=== PATIENT | male | born 1980 | race Hispanic/Latino ===

== ENCOUNTER 2016-08-01 13:19 | Emergency (ER) | payer OTHER ==
[~2016-08-01] VITALS: Ht 170.2 cm; Wt 131.5 kg
[~2016-08-01 13:19] MED LIST: ALPRAZOLAM1 M2 PO; ASPIRIN EC81 M1 PO; CYMBALTA 20 MG20 MG PO; CYMBALTA30 M1 PO; DEPAKOTE ER 25250 MG PO; DEPAKOTE ER500 M1 PO; DEPAKOTE250 MG PO; ENDOCET 325 MG-1 TAB PO; GLUCOPHAGE1000 M1 PO; IBUPROFEN600 M1 PO; IBUPROFEN800 M1 PO; LOMOTIL 0.025 M1 TAB PO; METFORMIN500 MG PO; MOTRIN 400MG (400 MG PO; OXYCODONE-ACETAMINOP PO; PREVACID30 M1 PO; PROTONIX40 M3 PO; RISPERDAL0.5 M1 PO; RISPERIDONE 1 MG1 MG PO; ROXICODONE15 M1 PO; ZOFRAN4 M2 PO
[2016-08-01 13:29] VITALS: BP 119/80
--- NOTE | 2016-08-01 13:55 | ED PSYCHIATRIC COMPLAINT ---
History of Present Illness General Chief Complaint: Psychiatric Related Complaint Stated Complaint: REQ TO SPEAK W/ CRISIS REGARDING PSY WORK CLEARANC Source: patient Exam Limitations: no limitations Vital Signs & Intake/Output Vital Signs & Intake/Output Vital Signs Date Time Temp Pulse Resp B/P Pulse O2 O2 Flow FiO2 Ox Delivery Rate 08/01 1418 Room Air 08/01 1329 98.2 96 16 119/80 98 Room Air Allergies Coded Allergies: haloperidol (From Haldol) (Severe, MOUTH STIFFNESS 06/25/16) tramadol (Intermediate, GI UPSET 06/25/16) Reconcile Medications Alprazolam 1 MG TABLET 1 TAB PO TIDPRN ANXIETY (Reported) Aspirin (Ecotrin*) 81 MG TABLET.DR 1 TAB PO DAILY . (Reported) Divalproex Sodium (Depakote ER) 500 MG TAB.ER.24H 1 TAB PO BID MENTAL HEALTH (Reported) Duloxetine Hydrochloride (Cymbalta) 30 MG CAP 1 CAP PO DAILY depression ( Reported) Ibuprofen 800 MG TABLET 1 TAB PO TID PRN pain Lansoprazole (Prevacid) 30 MG CAPSULE.DR 1 CAP PO DAILY GI (Reported) Metformin HCl (Glucophage) 1,000 MG TABLET 1 TAB PO BID DIABETES (Reported) Ondansetron HCl (Zofran) 4 MG TABLET 1 TAB PO TID NAUSEA (Reported) Oxycodone HCl (Roxicodone) 15 MG TABLET 1 TAB PO 4XDP PAIN (Reported) Pantoprazole Sodium (Protonix) 40 MG TAB 40 MG PO DAILY GERD (Reported) Risperidone (Risperdal) 0.5 MG TABLET 1 TAB PO BID . (Reported) Triage Note: PT STATES HE WAS SENT BY HIS PCP FOR A PSYCH EVAL. TO GET CLEARED STATING THAT HE HAS BEEN EVALUATED AND THAT HE IS NOT SUICIDAL. PT DENIES FEELING SUICIDAL OR HOMICIDAL. Triage Nurses Notes Reviewed? yes Duration: unknown duration Severity: mild Associated Symptoms: ANXIETY, DRINKS A LOT OF COFFEE HPI: This is a 35-year-old male who presents to the ER for chief complaint of requesting a her stating that he is not suicidal so that he can follow up with his pain care Center. He denies any SI or HI. He denies hearing any voices. He is well maintained on his bipolar medications. He states that he is following with But is waiting for an official appointment with a psychiatrist in the interim his primary care doctor is refilling his medications. Past History Travel History Traveled to [place] past 21 day No Medical History Any Pertinent Medical History? 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 No Review of Systems Review of Systems Constitutional: Denies: chills, fever. EENTM: Reports: no symptoms. Respiratory: Denies: cough, short of breath. Cardiovascular: Denies: chest pain. GI: Reports: no symptoms. Genitourinary: Reports: no symptoms. Musculoskeletal: Reports: no symptoms. Skin: Reports: no symptoms. Neurological/Psychological: Reports: anxiety. Denies: confusion, depressed. Hematologic/Endocrine: Denies: bruising, bleeding, polyuria, polydipsia. Immunologic/Allergic: Denies: splenectomy. All Other Systems: Reviewed and Negative Physical Exam Physical Exam General Appearance: well developed/nourished, mild distress Head: atraumatic Eyes: Bilateral: PERRL, EOMI. Ears, Nose, Throat: normal pharynx, normal ENT inspection, hearing grossly normal Neck: normal inspection, supple Respiratory: normal breath sounds Cardiovascular: regular rate/rhythm Gastrointestinal: soft, non-tender Extremities: normal range of motion Neurological/Psychiatric: awake, alert, anxious Appearance/Memory/Insight: neat Behavoir/Eye Contact/Speech: cooperative, increased rate of speech, good eye contact Thoughts/Hallucinations: no apparent hallucination Skin: intact, normal color, warm/dry SAD PERSONS Done? patient not suicidal Progress Differential Diagnosis: BIPOLAR DISORDER, ANXIETY Plan of Care: Patient given a letter of clearance to return back to work. Departure Departure Time of Disposition: 1418 Disposition: HOME OR SELF CARE Condition: Stable Clinical Impression Primary Impression: Bipolar disorder Referrals: EDUARDO RAJAN MD (PCP/Family) Additional Instructions: Take your regular medications as prescribed. Follow up with your care appointments. Return as needed. Departure Forms: Customer Survey General Discharge Information
[2016-08-02] MEDS ORDERED: ROXICODONE15 M1 PO (23:27)
== END 2016-08-01 14:20 ==
LOC: ERH 13:19
DX: F31.9 Bipolar disorder, unspecified (principal)

== ENCOUNTER 2016-08-02 20:43 | Emergency (ER) | payer OTHER ==
[2016-08-02 20:55] VITALS: BP 122/77
--- NOTE | 2016-08-02 22:41 | CT SCAN REPORT ---
EXAMINATION: CT HEAD WITHOUT CONTRAST CLINICAL INFORMATION: Fall. Left head strike. COMPARISON: None. TECHNIQUE: Contiguous axial imaging was performed from the skull base to vertex without intravenous administration of contrast. Coronal reformatted images performed at CT scanner DLP: 600.71 mGy-cm. FINDINGS: There is no evidence of acute intracranial hemorrhage or territorial infarction. No abnormal mass effect or midline shift is seen. Marcelo to white matter differentiation is well preserved. No extra-axial fluid collections are identified. The ventricles are normal in size. There is no abnormal attenuation within the brain parenchyma. The osseous structures and soft tissues are normal. Sinus mucosal thickening in the ethmoid sinuses. Small amount mucosal thickening in the frontal sinuses bilateral inferiorly. The mastoid air cells and the middle ear cavities are normally aerated. IMPRESSION: No acute intracranial pathology. Sinus disease.
--- NOTE | 2016-08-02 22:57 | RADIOLOGY REPORT ---
EXAMINATION: XR KNEE, LEFT CLINICAL INFORMATION: Fall. Continuing pain. COMPARISON: None. TECHNIQUE: 4 views. FINDINGS: No fracture. No dislocation. No joint effusion. There is mild joint narrowing of the medial femoral tibial joint. No spur or erosion. No soft tissue calcification. IMPRESSION: No acute abnormality.
--- NOTE | 2016-08-02 22:58 | RADIOLOGY REPORT ---
EXAMINATION: XR WRIST, LEFT CLINICAL INFORMATION: Fall. Wrist pain. COMPARISON: None. TECHNIQUE: 3 views. FINDINGS: There are no fractures or dislocations. No bone, joint or soft tissue abnormality is demonstrated. IMPRESSION: Normal left wrist.
--- NOTE | 2016-08-02 23:00 | RADIOLOGY REPORT ---
EXAMINATION: XR ELBOW, RIGHT CLINICAL INFORMATION: Fall. Right elbow pain. COMPARISON: None TECHNIQUE: Two views of the right elbow. FINDINGS: The bones and soft tissues are normal. No fracture or joint effusion. Alignment is anatomic. Joint spaces are maintained. IMPRESSION: Normal right elbow.
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
[2016-08-02] MEDS ORDERED: ROXICODONE15 M1 PO (23:27)
== END 2016-08-02 23:30 ==
LOC: ERH 20:43
DX: S50.01XA Contusion of right elbow, initial encounter (principal); S63.502A Unspecified sprain of left wrist, initial encounter; S09.90XA Unspecified injury of head, initial encounter; G89.29 Other chronic pain; N34.2 Other urethritis; W01.0XXA Fall on same level from slipping, tripping and stumbling without subsequent striking against object, initial encounter
CPT/HCPCS: 73070-RT; 73110-LT; 73562-LT; 96372; J0696

== ENCOUNTER 2016-08-09 20:56 | Emergency (ER) | payer OTHER ==
[2016-08-09 21:08] VITALS: BP 131/88
[2016-08-09] MEDS ORDERED: GABAPENTIN600 M1 PO ×2 (21:34→21:48)
[2016-08-09] MEDS ORDERED: ROXICODONE15 M1 PO (21:34)
--- NOTE | 2016-08-09 21:35 | ED GENERAL ADULT ---
History of Present Illness General Chief Complaint: General Adult Stated Complaint: PT IS HERE FOR A FOLLOW ON RG KNEE AND WRIST Source: patient Exam Limitations: no limitations Vital Signs & Intake/Output Vital Signs & Intake/Output Vital Signs Date Time Temp Pulse Resp B/P Pulse O2 O2 Flow FiO2 Ox Delivery Rate 08/09 2108 98.6 110 131/88 97 Room Air Allergies Coded Allergies: haloperidol (From Haldol) (Severe, MOUTH STIFFNESS 06/25/16) tramadol (Intermediate, GI UPSET 06/25/16) Reconcile Medications Alprazolam 1 MG TABLET 1 TAB PO TIDPRN ANXIETY (Reported) Aspirin (Ecotrin*) 81 MG TABLET.DR 1 TAB PO DAILY . (Reported) Divalproex Sodium (Depakote ER) 500 MG TAB.ER.24H 1 TAB PO BID MENTAL HEALTH (Reported) Duloxetine Hydrochloride (Cymbalta) 30 MG CAP 1 CAP PO DAILY depression ( Reported) Gabapentin 600 MG TABLET 1 TAB PO TID PAIN Gabapentin 600 MG TABLET 1 TAB PO TID PAIN Ibuprofen 800 MG TABLET 1 TAB PO TID PRN pain Lansoprazole (Prevacid) 30 MG CAPSULE.DR 1 CAP PO DAILY GI (Reported) Metformin HCl (Glucophage) 1,000 MG TABLET 1 TAB PO BID DIABETES (Reported) Ondansetron HCl (Zofran) 4 MG TABLET 1 TAB PO TID NAUSEA (Reported) Oxycodone HCl (Roxicodone) 15 MG TABLET 1 TAB PO 4XDP PAIN (Reported) Oxycodone HCl (Roxicodone) 15 MG TABLET 1 TAB PO BID pain Oxycodone HCl 15 MG TABLET 1 TAB PO BID PAIN Oxycodone HCl (Roxicodone) 15 MG TABLET 1 TAB PO 4XDP chronic pain Pantoprazole Sodium (Protonix) 40 MG TAB 40 MG PO DAILY GERD (Reported) Risperidone (Risperdal) 0.5 MG TABLET 1 TAB PO BID . (Reported) Triage Note: PER PT HERE FOR PAIN MED REFILL AND RT WRIST AND KNEE PAIN HERE TO SEE DR. BOSWELL ALSO NEED GABAPENTIN. Triage Nurses Notes Reviewed? yes Onset: Abrupt Duration: day(s):, constant Timing: recent history No Modifying Factors: none HPI: 35-year-old male comes into emergency room requesting a refill on his oxycodone and gabapentin. Patient was seen here recently and had the medication prescribed. Patient is currently trying to get in with new pain management. Patient reports that he has back issues and knee issues. Patient is just here for refill on medication. Denies any other associated symptoms. (GALE EMERSON) Past History Travel History Traveled to [place] past 21 day No Medical History Any Pertinent Medical History? 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 No (GALE EMERSON) Review of Systems Review of Systems Constitutional: Reports: no symptoms. EENTM: Reports: no symptoms. Respiratory: Reports: no symptoms. Cardiovascular: Reports: no symptoms. GI: Reports: no symptoms. Genitourinary: Reports: no symptoms. Musculoskeletal: Reports: no symptoms. Skin: Reports: no symptoms. Neurological/Psychological: Reports: no symptoms. Hematologic/Endocrine: Reports: no symptoms. Immunologic/Allergic: Reports: no symptoms. All Other Systems: Reviewed and Negative (GALE EMERSON) Physical Exam Physical Exam General Appearance: well developed/nourished, alert, awake Head: atraumatic Eyes: Bilateral: normal appearance. Ears, Nose, Throat: normal ENT inspection, hearing grossly normal Neck: normal inspection Respiratory: no respiratory distress Back: normal range of motion Extremities: normal range of motion Neurologic/Psych: awake, alert, oriented x 3 Skin: intact, normal color Core Measures ACS in differential dx? No CVA/TIA Diagnosis: No Severe Sepsis Present: No Septic Shock Present: No (GALE EMERSON) Progress Differential Diagnoses I considered the following diagnoses in my evaluation of the patient: Chronic pain, anxiety, depression, bursitis, arthritis, muscle strains, herniated disc, degenerative disease, Plan of Care: see below Initial ED EKG: none (GALE EMERSON) Departure Departure Disposition: HOME OR SELF CARE Condition: Stable Clinical Impression Primary Impression: Medication refill Referrals: EDUARDO RAJAN MD (PCP/Family) Additional Instructions: Take gabapentin and oxycodone as prescribed. Follow-up with new pain management doctor as already scheduled. Return if any concerns worsening symptoms. Please go over all results of today's visit with your primary care doctor. Contact your primary care doctor to let them know you were here in the emergency room. There may be nonspecific findings which may not be related to your visit today here in the emergency room but may require further evaluation and chronic monitoring by your primary care doctor. If you had a laceration today the chance of foreign body always remains. You should follow-up with your primary care doctor for recheck in 3-5 days for a wound check. If you had an x-ray done there is a chance that a fracture could have been missed on initial read and you should follow-up with your primary care doctor for repeat x-rays if symptoms persist. If your blood pressure was elevated here in the emergency room please have rechecked by her primary care doctor within the next 48 hours by your primary care doctor. If you were prescribed a narcotic here in the emergency room or any type of controlled substances you're not allowed to drive while taking this medication or operate any type of heavy machinery. Narcotics can make you feel lightheaded dizziness nausea and can cause constipation. You may need to cigar packer and picker a stool softener. Thank you for choosing [facility] emergency room. Please return to the emergency room immediately if you have any other concerns worsening of symptoms. Departure Forms: Customer Survey General Discharge Information Prescriptions: Current Visit Scripts Oxycodone HCl (Roxicodone) 1 TAB PO BID #20 TAB Gabapentin 1 TAB PO TID #40 TAB Oxycodone HCl 1 TAB PO BID #20 TAB Gabapentin 1 TAB PO TID #40 TAB (GALE EMERSON) PA/LAWYER Co-Sign Statement Statement: ED Attending supervision documentation- [] I saw and evaluated the patient. I have also reviewed all the pertinent lab results and diagnostic results. I agree with the findings and the plan of care as documented in the PA's/LAWYER's documentation. x I have reviewed the ED Record and agree with the PA's/LAWYER's documentation. [] Additions or exceptions (if any) to the PAs/LAWYER's note and plan are summarized below: [] (ANDREIA MONTOYA,VAN) Critical Care Note Critical Care Note Critical Care Time: non-applicable (GALE EMERSON)
[2016-08-09] MEDS ORDERED: OXYCODONE HCL15 M1 PO (21:48)
== END 2016-08-09 21:53 ==
LOC: ERH 20:56
DX: Z76.0 Encounter for issue of repeat prescription (principal)
CPT/HCPCS: 99281

== ENCOUNTER 2016-08-15 01:29 | Emergency (ER) | payer OTHER ==
[~2016-08-15] VITALS: Ht 167.6 cm; Wt 113.4 kg
[~2016-08-15 01:29] MED LIST changes: +GABAPENTIN600 M1 PO; +OXYCODONE HCL15 M1 PO
[2016-08-15 01:42] VITALS: BP 135/76
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
[2016-08-15] MEDS ORDERED: PERCOCET 5-3251 EACH PO (02:23)
[2016-08-15] MEDS ORDERED: OXYCODONE HCL5 M2 PO ×2 (02:32→02:46)
== END 2016-08-15 02:52 ==
LOC: ERH 01:29
DX: M25.462 Effusion, left knee (principal)

== ENCOUNTER 2016-08-17 23:34 | Emergency (ER) | payer OTHER ==
[~2016-08-17] VITALS: Ht 170.2 cm; Wt 122.5 kg
[~2016-08-17 23:34] MED LIST changes: +OXYCODONE HCL5 M2 PO; +PERCOCET 5-3251 EACH PO
--- NOTE | 2016-08-18 00:21 | ED GENERAL ADULT ---
History of Present Illness General Chief Complaint: General Adult Stated Complaint: WANT MED REFILL Vital Signs & Intake/Output Vital Signs & Intake/Output Vital Signs Date Time Temp Pulse Resp B/P Pulse O2 O2 Flow FiO2 Ox Delivery Rate 08/18 0109 98.6 100 20 150/90 97 Room Air Room Air Allergies Coded Allergies: haloperidol (From Haldol) (Severe, MOUTH STIFFNESS 06/25/16) tramadol (Intermediate, GI UPSET 06/25/16) Reconcile Medications Alprazolam 1 MG TABLET 1 TAB PO TIDPRN ANXIETY (Reported) Aspirin (Ecotrin*) 81 MG TABLET.DR 1 TAB PO DAILY . (Reported) Divalproex Sodium (Depakote ER) 500 MG TAB.ER.24H 1 TAB PO BID MENTAL HEALTH (Reported) Duloxetine Hydrochloride (Cymbalta) 30 MG CAP 1 CAP PO DAILY depression ( Reported) Gabapentin 600 MG TABLET 1 TAB PO TID PAIN Gabapentin 600 MG TABLET 1 TAB PO TID PAIN Ibuprofen 800 MG TABLET 1 TAB PO TID PRN pain Lansoprazole (Prevacid) 30 MG CAPSULE.DR 1 CAP PO DAILY GI (Reported) Metformin HCl (Glucophage) 1,000 MG TABLET 1 TAB PO BID DIABETES (Reported) Ondansetron HCl (Zofran) 4 MG TABLET 1 TAB PO TID NAUSEA (Reported) Oxycodone HCl (Roxicodone) 15 MG TABLET 1 TAB PO 4XDP PAIN (Reported) Oxycodone HCl 5 MG CAPSULE 1 CAP PO Q8 PRN pain Oxycodone HCl (Roxicodone) 15 MG TABLET 1 TAB PO BID pain Oxycodone HCl 15 MG TABLET 1 TAB PO BID PAIN Oxycodone HCl (Roxicodone) 15 MG TABLET 1 TAB PO 4XDP chronic pain Pantoprazole Sodium (Protonix) 40 MG TAB 40 MG PO DAILY GERD (Reported) Risperidone (Risperdal) 0.5 MG TABLET 1 TAB PO BID . 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
[2016-08-18 01:09] VITALS: BP 150/90
--- NOTE | 2016-08-18 01:39 | ED GENERAL ADULT ---
History of Present Illness General Chief Complaint: General Adult Stated Complaint: WANT MED REFILL Source: patient Exam Limitations: no limitations Vital Signs & Intake/Output Vital Signs & Intake/Output Vital Signs Date Time Temp Pulse Resp B/P Pulse O2 O2 Flow FiO2 Ox Delivery Rate 08/18 0109 98.6 100 20 150/90 97 Room Air Room Air Allergies Coded Allergies: haloperidol (From Haldol) (Severe, MOUTH STIFFNESS 06/25/16) tramadol (Intermediate, GI UPSET 06/25/16) Triage Note: 35YO MALE TO TRIAGE REQUESTING REFILLS OF HIS OXY'S. STATES HE "WAS RELEASED FROM PAIN CLINIC IN [place] AND STATES HE VEGA NOT HAD ANY X 3 D." ALSO REQUESTING TO BE GIVEN SUBOXONE Triage Nurses Notes Reviewed? yes HPI: Patient is a 35 year old male who came to the ED stating that stating that it has been 36 hours that she has not had any pain medication he's with spelling. Patient was supposed to follow up with pain clinic but they refused to take the patient as they said he needs to be cleared by psychiatric due to his previous history of bipolar disorder and schizophrenia. Currently reports pain in the left lower back radiating to the leg and feels anxious. Also reports headache, he has not been able to sleep due to pain. (TJ MONTOYA,[facility]) Reconcile Medications Alprazolam 1 MG TABLET 1 TAB PO TIDPRN ANXIETY (Reported) Aspirin (Ecotrin*) 81 MG TABLET.DR 1 TAB PO DAILY . (Reported) Buprenorphine HCl/Naloxone HCl (Suboxone 8 MG-2 MG Sl Film) 8 MG-2 MG FILM 2 STR SL DAILY withdrawal sixteen...[id number] Divalproex Sodium (Depakote ER) 500 MG TAB.ER.24H 1 TAB PO BID MENTAL HEALTH (Reported) Duloxetine Hydrochloride (Cymbalta) 30 MG CAP 1 CAP PO DAILY depression ( Reported) Gabapentin 600 MG TABLET 1 TAB PO TID PAIN Gabapentin 600 MG TABLET 1 TAB PO TID PAIN Ibuprofen 800 MG TABLET 1 TAB PO TID PRN pain Lansoprazole (Prevacid) 30 MG CAPSULE.DR 1 CAP PO DAILY GI (Reported) Metformin HCl (Glucophage) 1,000 MG TABLET 1 TAB PO BID DIABETES (Reported) Ondansetron HCl (Zofran) 4 MG TABLET 1 TAB PO TID NAUSEA (Reported) Oxycodone HCl (Roxicodone) 15 MG TABLET 1 TAB PO 4XDP PAIN (Reported) Oxycodone HCl 5 MG CAPSULE 1 CAP PO Q8 PRN pain Oxycodone HCl (Roxicodone) 15 MG TABLET 1 TAB PO BID pain Oxycodone HCl 15 MG TABLET 1 TAB PO BID PAIN Oxycodone HCl (Roxicodone) 15 MG TABLET 1 TAB PO 4XDP chronic pain Pantoprazole Sodium (Protonix) 40 MG TAB 40 MG PO DAILY GERD (Reported) Risperidone (Risperdal) 0.5 MG TABLET 1 TAB PO BID . (Reported) (JOSE DAVID MONTOYA,RADHA Ellis) Past History Travel History Traveled to [place] past 21 day No Medical History Any Pertinent Medical History? 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 Yes (NOLVIA SPENCER MD) Review of Systems Review of Systems Constitutional: Denies: chills, fever, weakness. EENTM: Reports: no symptoms. Respiratory: Denies: cough, short of breath, sputum production. Cardiovascular: Denies: chest pain, palpitations. GI: Reports: no symptoms. Genitourinary: Reports: no symptoms. Musculoskeletal: Reports: back pain. Denies: joint pain, joint swelling. Skin: Reports: no symptoms. Neurological/Psychological: Reports: headache. Denies: weakness. Hematologic/Endocrine: Denies: bruising, bleeding. (NOLVIA SPENCER MD) Physical Exam Physical Exam General Appearance: well developed/nourished, no apparent distress, alert, awake , anxious Head: atraumatic, normal appearance Eyes: Bilateral: PERRL, EOMI. Ears, Nose, Throat: normal pharynx, normal ENT inspection Neck: normal inspection, supple, full range of motion Respiratory: normal breath sounds, chest non-tender, no respiratory distress, quiet respiration Cardiovascular: regular rate/rhythm Peripheral Pulses: 2+ radial (R), 2+ radial (L) Gastrointestinal: normal bowel sounds, soft, non-tender Back: normal inspection, normal range of motion, vertebral tenderness, tenderness on the palpation of the lower lumbar spine and left pelvis Extremities: normal inspection, normal capillary refill, normal range of motion, no edema Neurologic/Psych: no motor/sensory deficits, awake, alert, oriented x 3, normal gait Skin: intact, normal color, warm/dry Core Measures ACS in differential dx? No CVA/TIA Diagnosis: No Severe Sepsis Present: No Septic Shock Present: No (NOLVIA SPENCER MD) Progress Differential Diagnoses I considered the following diagnoses in my evaluation of the patient: [opioid ependence, opiate withdrawal, disc herniation, chronic low back pain] Plan of Care: We prescribed Suboxone for the patient until his appointment on August 23, 2016 with the outpatient rehab in [place] for Suboxone tx. Initial ED EKG: none (NOLVIA SPENCER MD) Departure Departure Disposition: HOME OR SELF CARE Condition: Stable Clinical Impression Primary Impression: Opioid dependence Secondary Impressions: Opioid withdrawal Referrals: EDUARDO RAJAN MD (PCP/Family) Departure Forms: Customer Survey General Discharge Information (NOLVIA SPENCER MD) Departure Prescriptions: Current Visit Scripts Buprenorphine HCl/Naloxone HCl (Suboxone 8 MG-2 MG Sl Film) 2 STR SL DAILY #16 STR sixteen...[id number] Resident Co-Sign Statement Statement: ED Attending supervision documentation- [X] I saw and evaluated the patient. I have also reviewed all the pertinent lab results and diagnostic results. I agree with the findings and the plan of care as documented in the Resident's documentation. discussed at great length. he would like to give trial of suboxone. discussed induction and advocated close follow up. he has appt with suboxone provider next week. he understood induction protocol. [] I have reviewed the ED Record and agree with the Resident's documentation. [] Additions or exceptions (if any) to the Resident's note and plan are summarized below: [] (JOSE DAVID MONTOYA,RADHA Ellis) Critical Care Note Critical Care Note Critical Care Time: non-applicable (NOLVIA SPENCER MD) ED Attending Observation Initial Observation Note: I have seen and personally examined GREG FRIEDMAN on 08/18/16 at 0534. I agree with the current emergency department documentation. The disposition (admission or discharge) is uncertain at this time, he needs a period of observation for the following reason(s): The ED Nurse caring for this patient has been personally informed as to what the patient is being observed for. (TJ MONTOYA,NOLVIA)
[2016-08-18] MEDS ORDERED: SUBOXONE 8 MG-1 EACH SL (02:09)
== END 2016-08-18 02:16 ==
LOC: ERH 23:34
DX: F11.23 Opioid dependence with withdrawal (principal)
CPT/HCPCS: 99281

== ENCOUNTER 2016-10-12 07:40 | Inpatient (IN) | payer OTHER ==
[~2016-10-12] VITALS: Ht 170.2 cm; Wt 127.9 kg
[~2016-10-12 07:40] MED LIST changes: +SUBOXONE 8 MG-1 EACH SL
--- NOTE | 2016-10-12 07:52 | NUR ---
PT LEFT AMA FROM [facility] THIS MORNING BECAUSE HIS ROOMMATE WAS TOLD SHE HAD TO LEAVE AT 0400 THIS MORNING D/T VISITING HOURS OVER. PT STATES HE WENT TO [place] FOR CP/SOB AND DIZZINESS AND WAS TOLD HE HAS A PE.
--- NOTE | 2016-10-12 08:12 | NUR ---
PT CHANGED INTO GOWN AND NOTED AMBULATING ON PHONE AND ADVISED TO GO BACK TO ROOM AND STAY ON STRETCHER BECAUSE OF STATED CONDITION. PT HAS PREVIOUS PCP CARING FOR HIM ON PHONE AND LINETTE ANDUJAR AT BEDSIDE TO EVAL PT AND SPEAK WITH PROVIDER.
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
--- NOTE | 2016-10-12 08:30 | ED CARDIAC/CP/PALPITATIONS ---
History of Present Illness General Chief Complaint: General Adult Stated Complaint: LEFT AMA FROM [facility]; BLD CLOTS IN LEGS AND LUNGS Allergies Coded Allergies: haloperidol (From Haldol) (Severe, MOUTH STIFFNESS 06/25/16) tramadol (Intermediate, GI UPSET 06/25/16) Triage Note: PT LEFT AMA FROM [facility] THIS MORNING BECAUSE HIS ROOMMATE WAS TOLD SHE HAD TO LEAVE AT 0400 THIS MORNING D/T VISITING HOURS OVER. PT STATES HE WENT TO [facility] FOR CP/SOB AND DIZZINESS AND WAS TOLD HE HAS A PE. HPI: I was called by the hospitalist Dr. Baez from [facility] regarding this patient who provided much of the history. He also faxed over records which I have reviewed. In summary this is a 36-year-old male who was having chest pain and shortness of breath who was originally seen at [facility] 2 days ago, had a CTA however per the report, the bolus was somewhat inadequate however he was diagnosed with high probability of having a pulmonary embolism. Patient left [facility] AGAINST MEDICAL ADVICE because "the hospitalist spooky, there was no patient's there, it didn't seem like a good hospital . And they don't allow visitors overnight ". Patient then went to [facility]. He spent the evening there yesterday, on intravenous heparin however, did not want to continue getting blood draws for his PTT and he was going to be switched to Lovenox this morning , last dose of heparin was around 2 AM and the plan was to repeat the CTA today to confirm the diagnosis. Patient, according to the records that were faxed over, had a negative troponin and negative d-dimer. Patient states that his roommate was told to leave at 4:00 this morning which angered him so he signed out AGAINST MEDICAL ADVICE and came to our hospital this morning. I was able to speak with the hospitalist at [facility] because he called the patient's cell phone while I was in the room with the patient. Currently patient has no complaints, in fact he fell asleep on the stretcher twice while I was interviewing him. He has a known psychiatric history and is on risperidone as well as a substance abuse history and is on Suboxone 8 mg, 18 tablets per week. He denies any history of drug or alcohol abuse. I discussed with patient the plan that we are going to repeat his CTA and his lab testing. He is comfortable at this time without complaints. He denies any cough or hemoptysis. According to the hospitalist, the original CT angiogram was read as "suspicious filling defects of the pulmonary arteries in the bilateral upper lobes" Patient had bilateral lower extremity ultrasounds which were negative for DVT as well (JAN BARRERA) General Source: patient Exam Limitations: poor historian Vital Signs & Intake/Output Vital Signs & Intake/Output Vital Signs Date Time Temp Pulse Resp B/P Pulse O2 O2 Flow FiO2 Ox Delivery Rate 10/12 1829 98.1 81 16 141/68 94 Room Air 10/12 1712 99.1 91 16 117/67 96 Room Air 10/12 1413 88 17 117/67 97 Room Air 10/12 1200 97.6 78 18 120/68 97 Room Air 10/12 0959 98.8 72 18 140/66 96 Room Air 10/12 0844 97 Room Air 10/12 0750 97.0 86 20 106/65 100 Room Air Reconcile Medications Alprazolam 1 MG TABLET 1 TAB PO TIDPRN ANXIETY (Reported) Aspirin (Ecotrin*) 81 MG TABLET.DR 1 TAB PO DAILY . (Reported) Buprenorphine HCl/Naloxone HCl (Suboxone 8 MG-2 MG Sl Film) 8 MG-2 MG FILM 1 STR SL BID WITHDRAWL (Reported) Buprenorphine HCl/Naloxone HCl (Suboxone 8 MG-2 MG Sl Film) 8 MG-2 MG FILM 0.5 STR SL QPM WITHDRAWL (Reported) Divalproex Sodium (Depakote ER) 500 MG TAB.ER.24H 1 TAB PO BID MENTAL HEALTH (Reported) Duloxetine Hydrochloride (Cymbalta) 30 MG CAPSULE.DR 1 CAP PO DAILY DEPRESSION (Reported) Fluticasone Propionate (Flonase Allergy Relief) 50 MCG/ACTUATION SPRAY.SUSP 2 SPRAY RUDI BID ALLERGIES (Reported) Furosemide 20 MG TABLET 1 TAB PO DAILY WATER PILL (Reported) Gabapentin 400 MG CAPSULE 2 CAP PO BID PAIN (Reported) Lansoprazole (Prevacid) 30 MG CAPSULE.DR 1 CAP PO DAILY GI (Reported) Metformin HCl (Glucophage) 1,000 MG TABLET 1 TAB PO BID DIABETES (Reported) Ondansetron HCl (Zofran) 4 MG TABLET 1 TAB PO TID NAUSEA (Reported) Pantoprazole Sodium (Protonix) 40 MG TABLET.DR 1 TAB PO DAILY ACID REFLUX ( Reported) Risperidone (Risperdal) 0.5 MG TABLET 1 TAB PO BID . (Reported) Triage Nurses Notes Reviewed? yes (DAGOBERTO RAHMAN DO) Past History Travel History Traveled to [place] past 21 day No Medical History Neurological: NONE EENT: NONE Cardiovascular: hypertension Respiratory: NONE Gastrointestinal: GERD Hepatic: NONE Renal: NONE Musculoskeletal: chronic back pain Psychiatric: anxiety, bipolar disease, schizophrenia Endocrine: diabetes Blood Disorders: NONE Cancer(s): NONE AURICULAR ACUPUNCTURIST/Reproductive: NONE Other Medical Hx: History of substance abuse. Mood disorder. Currently on Suboxone. Suicide attempts. Psychosis Tetanus Vaccine: 06/11/12 Surgical History Surgical History: non-contributory Psychosocial History Who do you live with Other (see notes) What is your primary language Malian Tobacco Use: Never used ETOH Use: occasional use Illicit Drug Use: denies illicit drug use Family History Family History, If Any: Relation not specified for: Psychiatric disorder (JAN BARRERA) Medical History Any Pertinent Medical History? see below for history Family History Hx Contributory? Yes (DAGOBERTO RAHMAN DO) Review of Systems Review of Systems Constitutional: Denies: fever. EENTM: Reports: no symptoms. Respiratory: Reports: short of breath. Cardiovascular: Reports: no symptoms. GI: Reports: no symptoms. Genitourinary: Reports: no symptoms. Musculoskeletal: Reports: joint pain. Skin: Denies: rash. Neurological/Psychological: Reports: emotional problems. Hematologic/Endocrine: Reports: no symptoms. (DAGOBERTO RAHMAN DO) Physical Exam Physical Exam Comments: Well-developed well-nourished Appears mildly sleepy HEENT: Atraumatic, extraocular motion intact Neck: Supple, no lymphadenopathy Back: Nontender Heart: Regular rate and rhythm no murmur Respiratory: No respiratory distress, chest nontender, lung sounds decreased, no tachypnea no wheezing or rhonchi Extremities: No edema, full range of motion, no calf pain or tenderness Abdomen: Obese, soft nontender nondistended Neuro: Alert and oriented x3 Psych: Anxious Skin: Warm and dry, mild red rash with excoriation to the right antecubital fossa (JAN BARRERA) Physical Exam General Appearance: anxious, mild distress Head: atraumatic, normal appearance Eyes: Bilateral: normal appearance, PERRL, EOMI. Ears, Nose, Throat: normal ENT inspection Neck: supple Respiratory: decreased breath sounds Cardiovascular: regular rate/rhythm Peripheral Pulses: 4+ radial (R), 4+ radial (L) Gastrointestinal: non-tender Back: decreased range of motion Extremities: pedal edema Neurologic/Psych: awake, alert, oriented x 3 Skin: intact, normal color, warm/dry Core Measures ACS in differential dx? No Severe Sepsis Present: No Septic Shock Present: No (DAGOBERTO RAHMAN DO) Progress Differential Diagnosis: AMI, aortic dissection, atrial fibrillation, cholecystitis, CHF/pulm edema, costochondritis, hyperkalemia, hypovolemia, hyperthyroid, hyperventilation, intracranial hemorrhage, musculoskeletal pain, myocarditis, pancreatitis, pericarditis, pneumonia, pneumothorax, PSVT, pulmonary embolism, PUD/GERD, PVCs/PACs, respiratory failure, rib fracture, sepsis, unstable angina, V-fib/V-Tach, WPW syndrome Diagnostic Imaging: Viewed by Me: CT Scan. Discussed w/RAD: CT Scan. Radiology Impression: PATIENT: GREG FRIEDMAN PRESENT AGE: 36 PATIENT ACCOUNT NO: [id number] : 81 LOCATION: [facility] ORDERING PHYSICIAN: JAN SUE SERVICE DATE: 10/12/16 EXAM TYPE : CAT - CTA CHEST-PULMONARY EMBOLISM EXAMINATION: CT ANGIOGRAM OF THE CHEST WITH AND WITHOUT CONTRAST (CT PULMONARY ANGIOGRAM FOR PE) CLINICAL INFORMATION: Suspicion for bilateral upper lobe pulmonary embolism. Had suboptimal contrast bolus from [facility] 2 days ago. COMPARISON: No prior chest CT for comparison. TECHNIQUE: Prior to contrast administration, noncontrast localization images were obtained. Subsequently, multidetector volumetric imaging was performed from the thoracic inlet to below the diaphragms following the administration of 125 mL Optiray intravenous contrast. No contrast reaction reported. Sagittal, coronal, and MIP oblique sagittal reformatted images were obtained on the CT workstation, uploaded to PACS, and reviewed. Total exam dose-length product 1069 mGy-cm. FINDINGS: QUALITY OF STUDY/CONTRAST BOLUS: Satisfactory PULMONARY ARTERIES: There are bilateral segmental and subsegmental upper lobe pulmonary emboli. Additionally, there are segmental/subsegmental pulmonary emboli in the right lower lobe. THORACIC AORTA: No aneurysm or dissection. LUNG: No consolidation suspicious for pneumonia or pleural effusion. There is a triangular shaped subcentimeter nodule measuring 0.7 x 0.4 x 0.2 cm along the peripheral aspect of the right minor fissure, favored to represent a fissural lymph node over a true pulmonary nodule. PLEURA: No pleural effusion or pneumothorax. MEDIASTINUM: Normal heart size. No pericardial effusion. No hilar or mediastinal lymphadenopathy. No evidence of septal bowing or right heart strain. CHEST WALL/AXILLA: No axillary or internal mammary lymphadenopathy. Subcentimeter axillary lymph nodes are demonstrated. OSSEOUS STRUCTURES: No acute or suspicious osseous abnormality. UPPER ABDOMEN: Unremarkable. No reflux of contrast into the hepatic veins to suggest elevated right heart pressures. IMPRESSION: Bilateral segmental/subsegmental pulmonary emboli involving the upper lobes and right lower lobe. VTE: Positive This critical result was discussed with Jan Fletcher at 12:45 PM on 10/12/2016 and it was ascertained that the content and urgency of the report was understood at the time of direct communication. DICTATED BY: ASHUTOSH AGUIRRE MD DATE/TIME DICTATED:10/12/16 / 1241 MEDICAL EDITOR:CHERYL DATE/TIME TRANSCRIBED:10/12/16 Initial ED EKG: NSR, rate (76), no ST T wave changes, nonspecific ST T wave chg (INF) Prior EKG: unchanged Rhythm Strip: normal sinus rhythm Comments: Patient found sleeping multiple times upon reevaluation. He is requesting Xanax for his anxiety. He was given 0.5 mg Discussed with hospitalist regarding pulmonary embolism, and discussed with Dr. Rahman, patient did not 1 multiple blood draws for PT/INR is, we'll place on Lovenox, given 120 mg subcutaneous for therapeutic dose and we will admit him to the hospital for 23 hour observation. Patient appears emotionally unstable, he is combative and arguing with staff and his significant other who is in the room with him. I'm concerned that he requires a psychiatric eval as he may not understand exactly was going on with him and have insight into his medical problems. I conveyed this to the hospitalist staff and a psychiatric consult was ordered. (CON SUE,JAN) Plan of Care: Orders Procedure Date/time Status Consistent Carbohydrate 3 10/13 D Active CBC WITHOUT DIFFERENTIAL 10/13 599 Active BASIC ELECTROLYTES PLUS BUN&CR 10/13 599 Active Heart Healthy Diet 10/12 D Active Pathway - chart 10/[address] in observation 10/12 1514 Active ED Holding Orders 10/12 1509 Active ED Holding Orders 10/12 1457 Active ECHOCARDIOGRAM 10/12 1447 Active Pathway - chart 10/12 1446 Active House Staff 10/12 1446 Active Code Status 10/12 1446 Active Patient Data 10/12 1330 Active URINE DRUG SCREEN FOR ER ONLY 10/12 0858 Complete Saline Lock 10/12 0823 Active TROPONIN LEVEL 10/12 0823 Complete PARTIAL THROMBOPLASTIN TIME 10/12 0823 Complete PROTHROMBIN TIME 10/12 0823 Complete COMPREHENSIVE METABOLIC PANEL 10/12 0823 Complete CBC WITHOUT DIFFERENTIAL 10/12 0823 Complete B-TYPE NATRIURETIC PEP (BNP) 10/12 0823 Complete EKG 10/12 0751 Active VTE Mechanical Prophylaxis 10/12 UNK Active Vital Signs 10/12 UNK Active Intake & Output 10/12 UNK Active Hemoccult 10/12 UNK Active FingerStick- Glucose 10/12 UNK Active PSYCHIATRIC CONSULT 10/12 UNK Active Current Medications Sig/Rodrigo Start time Last Medication Dose Stop Time Status Admin Buprenorphine/ 2 TAB 1200 10/13 1200 AC Naloxone (Suboxone) Duloxetine HCl 30 MG DAILY 10/13 1000 AC (Cymbalta) Furosemide 20 MG DAILY 10/13 1000 AC (Lasix) Omeprazole 40 MG DAILY 10/13 1000 AC (Prilosec) Buprenorphine/ 1 TAB BID 10/12 2200 AC Naloxone (Suboxone) Enoxaparin Sodium 100 MG BID 10/12 2200 AC (Lovenox) Enoxaparin Sodium 30 MG BID 10/12 2200 AC (Lovenox) Fluticasone 1 SPRAY BID 10/12 2200 AC Propionate (Flonase) Gabapentin 800 MG BID 10/12 2200 AC (Neurontin) Acetaminophen 650 MG Q6P PRN 10/12 1645 AC (Tylenol) Ondansetron HCl 4 MG BID PRN 10/12 1615 AC (Zofran) Laboratory Tests 10/12/16 0900: Urine Opiates Screen 203.00, Methadone Screen < 40, Barbiturate Screen < 60, Ur Phencyclidine Scrn < 6.00, Amphetamines Screen < 100, U Benzodiazepines Scrn < 85, Urine Cocaine Screen < 50, Urine Cannabis Screen < 5.00 10/12/16 0830: Anion Gap 9, Estimated GFR > 60, BUN/Creatinine Ratio 20.0, Glucose 188 H, Calcium 9.0, Total Bilirubin 0.3, AST 22, ALT 44, Alkaline Phosphatase 54, Troponin I < 0.01, Tkt-P-Tmovdblalvr Pept 17.2, Total Protein 6.8, Albumin 3.6, Globulin 3.2, Albumin/Globulin Ratio 1.1, PT 12.1, INR 1.15, APTT 31, CBC w Diff NO MAN DIFF REQ, RBC 4.31 L, MCV 85.8, MCH 28.9, RDW 12.0, MPV 9.0, Gran % 66.7 , Lymphocytes % 19.3 L, Monocytes % 10.8 H, Eosinophils % 2.8, Basophils % 0.4 , Absolute Granulocytes 9.1 H, Absolute Lymphocytes 2.6, Absolute Monocytes 1.5 H, Absolute Eosinophils 0.4, Absolute Basophils 0, PUBS MCHC 33.7 Departure Departure Disposition: STILL A PATIENT Condition: Stable Clinical Impression Primary Impression: Pulmonary embolus Qualifiers: Pulmonary embolism type: other Chronicity: acute Acute cor pulmonale presence: without acute cor pulmonale Qualified Code: I26.99 - Other pulmonary embolism without acute cor pulmonale Referrals: EDUARDO RAJAN MD (PCP/Family) Departure Forms: Customer Survey General Discharge Information Observation Note Spoke With: ABA OLIVARES MD Physician Advisor Notified: DAGOBERTO RAHMAN DO Place Patient In: Non-ED OBS Care Area Rationale for Observation: My rational for observation is as follows . Pulmonary embolism, requires echo and full dose anticoagulation, cardiac monitoring. (JAN BARRERA) Departure Comments 10/12/16 4 PM The patient is disorganized and has signed out AGAINST MEDICAL ADVICE from 2 different hospitals. Psychiatric consultation should be obtained. He will need to get his medications regulated and his outpatient treatment coordinated, for this reason he is being placed in observation. Prematurely discharging him at this time would be unsafe. PA/DECK ENGINEER Co-Sign Statement Statement: ED Attending supervision documentation- [X] I saw and evaluated the patient. I have also reviewed all the pertinent lab results and diagnostic results. I agree with the findings and the plan of care as documented in the PA's/DECK ENGINEER's documentation. [] I have reviewed the ED Record and agree with the PA's/DECK ENGINEER's documentation. [] Additions or exceptions (if any) to the PAs/DECK ENGINEER's note and plan are summarized below: [] (DAGOBERTO RAHMAN DO) Critical Care Note Critical Care Note Critical Care Time: 30-74 min (DAGOBERTO RAHMAN DO)
--- NOTE | 2016-10-12 08:37 | NUR ---
PT NOTED TO BE VERY SLEEPY AND KEEPS FALLING ASLEEP MID SENTENCE AND DROPPING PHONE. IV EST AND LABS DRAWN BY [facility]
[2016-10-12 08:42] LABS: ABSOLUTE BASOPHIL COUNT 0 /CUMM (0.0-0.2); ABSOLUTE EOSINOPHIL COUNT 0.4 /CUMM (0.0-0.7); ABSOLUTE GRANULOCYTE CT 9.1 /CUMM (1.4-6.5); ABSOLUTE LYMPH COUNT 2.6 /CUMM (1.2-3.4); ABSOLUTE MONOCYTE COUNT 1.5 /CUMM (0.10-0.60); BASOPHIL % 0.4 % (0.0-2.0); EOSINOPHIL % 2.8 % (0-5); GRANULOCYTE % 66.7 % (42.2-75.2); MEAN CORPUSCULAR HGB 28.9 PG (27.0-31.0); MEAN CORPUSCULAR HGB CONC 33.7 G/DL (33.0-37.0); MEAN CORPUSCULAR VOLUME 85.8 FL (80.0-94.0); PLATELET COUNT 259 /CUMM (130-400); RED BLOOD CELL CT 4.31 /CUMM (4.70-6.10); WHITE BLOOD CELL COUNT 13.6 /CUMM (4.8-10.8)
[2016-10-12 08:50] LABS: PT 12.1 SEC (9.4-12.5); PTT 31 SEC (25-37)
--- NOTE | 2016-10-12 11:00 | NUR ---
PT MEDICATED ORDRWED
--- NOTE | 2016-10-12 11:50 | NUR ---
PT LEFT FOR CAT SCAN
--- NOTE | 2016-10-12 12:30 | NUR ---
PT LEFT AND BACK FROM CAT SCAN
--- NOTE | 2016-10-12 13:04 | NUR ---
LINETTE ANDUJAR AT [facility] TO DISCUSS POC WITH PT
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
--- NOTE | 2016-10-12 13:59 | CT SCAN REPORT ---
EXAMINATION: CT ANGIOGRAM OF THE CHEST WITH AND WITHOUT CONTRAST (CT PULMONARY ANGIOGRAM FOR PE) CLINICAL INFORMATION: Suspicion for bilateral upper lobe pulmonary embolism. Had suboptimal contrast bolus from CTA 2 days ago. COMPARISON: No prior chest CT for comparison. TECHNIQUE: Prior to contrast administration, noncontrast localization images were obtained. Subsequently, multidetector volumetric imaging was performed from the thoracic inlet to below the diaphragms following the administration of 125 mL Optiray intravenous contrast. No contrast reaction reported. Sagittal, coronal, and MIP oblique sagittal reformatted images were obtained on the CT workstation, uploaded to PACS, and reviewed. Total exam dose-length product 1069 mGy-cm. FINDINGS: QUALITY OF STUDY/CONTRAST BOLUS: Satisfactory PULMONARY ARTERIES: There are bilateral segmental and subsegmental upper lobe pulmonary emboli. Additionally, there are segmental/subsegmental pulmonary emboli in the right lower lobe. THORACIC AORTA: No aneurysm or dissection. LUNG: No consolidation suspicious for pneumonia or pleural effusion. There is a triangular shaped subcentimeter nodule measuring 0.7 x 0.4 x 0.2 cm along the peripheral aspect of the right minor fissure, favored to represent a fissural lymph node over a true pulmonary nodule. PLEURA: No pleural effusion or pneumothorax. MEDIASTINUM: Normal heart size. No pericardial effusion. No hilar or mediastinal lymphadenopathy. No evidence of septal bowing or right heart strain. CHEST WALL/AXILLA: No axillary or internal mammary lymphadenopathy. Subcentimeter axillary lymph nodes are demonstrated. OSSEOUS STRUCTURES: No acute or suspicious osseous abnormality. UPPER ABDOMEN: Unremarkable. No reflux of contrast into the hepatic veins to suggest elevated right heart pressures. IMPRESSION: Bilateral segmental/subsegmental pulmonary emboli involving the upper lobes and right lower lobe. VTE: Positive This critical result was discussed with Jan Fletcher at 12:45 PM on 10/12/2016 and it was ascertained that the content and urgency of the report was understood at the time of direct communication.
[2016-10-12] MEDS ORDERED: FUROSEMIDE20 M1 PO (14:02)
[2016-10-12] MEDS ORDERED: FLONASE ALLERG9.9 ML NAS (14:04)
[2016-10-12] MEDS ORDERED: GABAPENTIN400 M2 PO (14:06)
--- NOTE | 2016-10-12 15:30 | NUR ---
PT HAS BEEN REFUSING TO BE ADMITTED AND MD RAHMAN ALONG WITH CASE MANAGEMENT HAS BEEN ATTEMPTING TO REDIRECT PT AND EDUCATE ABOUT IMPORTANCE OF STAYING TO BE EVALUATED
[2016-10-12] MEDS ORDERED: SUBOXONE 8 MG-1 EACH SL ×2 (15:41)
--- NOTE | 2016-10-12 15:49 | NUR ---
PT GOING TO ROOM 171-1.
--- NOTE | 2016-10-12 16:05 | NUR ---
PT HAS FINALLY AGREED TO STAY FOR OBSERVATION
--- NOTE | 2016-10-12 17:10 | NUR ---
PT ATE AND INSULIN GIVEN AND VITALS TAKEN AND ATTEMPTING TO GIVE REPORT
--- NOTE | 2016-10-12 17:36 | NUR ---
REPORT GIVEN TO NURSE MANDUJANO AND TRANSPORT CALLED
--- NOTE | 2016-10-12 17:55 | NUR ---
PT NOTED TO HAVE CHANGED BACK INTO HIS OWN CLOHTING, NUMEROUS STAFF MEMEBERS AND CHARGE AWARE. PT ENCOURAGED TO PLEASE CHANGE PER HOSPITAL POLICY
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
[2016-10-12 18:29] VITALS: BP 141/68
--- NOTE | 2016-10-12 18:40 | NUR ---
GREG FRIEDMAN Nurse Note by: JAIDEN GALLEGOS I agree with the NETWORK ADMINISTRATOR findings/evaluation of this patient's condition. Entered by: JAIDEN GALLEGOS Date: 10/12/16 Time: 1839
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
[2016-10-13 00:17] VITALS: BP 114/76
--- NOTE | 2016-10-13 08:20 | PN- Housestaff ---
See Addendum Subjective Follow-up For: bilateral PE Complaints: bilateral lower leg edema and pain. pain in the left ear Tele-Events Since Last Visit: NSR,HR - 92 -61, PVC Subjective: Patient and seen and examined at the bed side. He was c/o pain in both lower limb. He was saying his breathing is improved.he was also c/o pain in left ear and using some drops for it. He dont know the name of drops.He was also c/o swelling in the left cheek. Review of Systems Constitutional: Reports: weakness. EENTM: Reports: eye pain. Cardiovascular: Reports: peripheral edema. Denies: chest pain, edema, orthopena, palpitations. Respiratory: Reports: short of breath. Gastrointestinal: Denies: abdominal pain, bloating, constipation. Genitourinary: Denies: no symptoms. Skin: Reports: erythema. Objective Last 24 Hrs of Vital Signs/I&O Vital Signs Date Time Temp Pulse Resp B/P Pulse O2 O2 Flow FiO2 Ox Delivery Rate 10/13 0855 96.5 73 18 110/70 94 Room Air 10/13 0017 97.3 76 18 114/76 96 Room Air 10/13 0000 Room Air 10/12 1830 95 Room Air 10/12 1829 98.1 81 16 141/68 94 Room Air 10/12 1712 99.1 91 16 117/67 96 Room Air 10/12 1413 88 17 117/67 97 Room Air Intake & Output 10/13 1600 10/13 0800 10/13 0000 Intake Total 240 420 Output Total Balance 240 420 Intake, IV 20 Intake, Oral 240 400 Patient 128 kg Weight Physical Exam General Appearance: Alert, Oriented X3, Cooperative, No Acute Distress, very voilent behaviour Skin: redness and swelling in both lower legs, pitting edema, sevrely tender Cardiovascular: Normal S1, Normal S2 Lungs: bilateral basal crepts Abdomen: Soft, distended Neurological: Normal Speech Extremities: bilateral lower leg tenderness, swelling and redness Current Medications: Current Medications Sig/Rodrigo Start time Last Medication Dose Route Stop Time Status Admin Acetaminophen 0 .STK-MED ONE 10/12 1806 DC IV Acetaminophen 650 MG Q6P PRN 10/12 1645 AC PO Acetaminophen 1,000 MG Q6P PRN 10/12 1645 AC 10/12 IV 1815 Buprenorphine/ 2 TAB 1200 10/13 1200 AC Naloxone SL Buprenorphine/ 1 TAB BID 10/12 220 AC Naloxone SL Duloxetine HCl 30 MG DAILY 10/13 1000 CAN PO Enoxaparin Sodium 100 MG BID 10/12 220 AC 10/13 SC 0840 Enoxaparin Sodium 30 MG BID 10/12 2200 AC 10/13 SC 0840 Enoxaparin Sodium 120 MG ONCE ONE 10/12 1315 DC 10/12 SC 10/12 1316 1425 Fluticasone 1 SPRAY BID 10/12 220 AC 10/13 Propionate RUDI 0841 Furosemide 20 MG DAILY 10/13 1000 AC 10/13 PO 0839 Gabapentin 300 MG TIDPRN PRN 10/12 2335 AC PO Gabapentin 800 MG BID 10/12 220 DC PO Haloperidol 2 MG TIDPRN PRN 10/12 2215 CAN IM Insulin Aspart 0 TIDAC 10/12 1700 AC 10/13 SC 1241 Nicotine 0 .STK-MED ONE 10/12 1610 DC TOP Nicotine 14 MG Q24 10/12 1445 AC 10/13 TOP 0841 Olanzapine 10 MG TIDPRN PRN 10/12 2215 AC IM Omeprazole 40 MG DAILY 10/13 1000 AC 10/13 PO 0841 Omeprazole 30 MG DAILY 10/12 1615 DC 10/12 PO 1609 Ondansetron HCl 4 MG BID PRN 10/12 1615 AC PO Oxycodone HCl 10 MG Q4 HRS NEEDED PRN 10/13 0915 AC PO Oxycodone HCl 0 .STK-MED ONE 10/12 1806 DC PO Oxycodone HCl 10 MG Q6P PRN 10/12 1645 DC 10/13 PO 0839 Patient Medication 1 UNIT ONE NR 10/12 1630 DC Teaching ED 10/12 1700 Patient Medication 1 UNIT ONE NR 10/12 1630 DC Teaching ED 10/12 1700 Risperidone 0.5 MG BID 10/13 1000 DC PO Risperidone 0.5 MG 1000,1700 10/13 1000 AC 10/13 PO 0840 Risperidone 1 MG BID PRN 10/12 2345 AC PO Risperidone 1 MG AT BEDTIME 10/12 2330 AC PO Risperidone 0.5 MG STAT STA 10/125 DC 10/12 PO 10/12 2125 2143 Warfarin Sodium 5 MG COUMADIN 1700 ONE 10/13 1700 AC PO 10/13 1701 Last 24 Hrs of Lab/Octavio Results Last 24 Hrs of Labs/Mics: Laboratory Tests 10/13/16 0754: Anion Gap 8, Estimated GFR > 60, BUN/Creatinine Ratio 15.7, CBC w Diff NO MAN DIFF REQ, RBC 4.24 L, MCV 86.2, MCH 28.5, RDW 12.2, MPV 8.7, Gran % 44.9, Lymphocytes % 32.0, Monocytes % 16.5 H, Eosinophils % 5.9 H, Basophils % 0.7, Absolute Granulocytes 4.3, Absolute Lymphocytes 3.0, Absolute Monocytes 1.6 H, Absolute Eosinophils 0.6, Absolute Basophils 0.1, PUBS MCHC 33.1 Assessment/Plan Assessment: Mr. Hernandez is a 36-year-old homeless gentleman with a PMH significant for diabetes, HTN, chronic back pain, and an extensive psychiatric history including anxiety, depression, psychosis, polysubstance abuse, suicide attempt and borderline personality disorder, who presents with a bilateral pulmonary embolism. Vital signs-temperature 96.5, pulse 73, respiratory rate 18, blood pressure 110/ 74, SPO2 94% Plan - Bilateral segmental/subsegmental pulmonary emboli involving the upper lobes and right lower lobe. * We will continue telemetery * Inbj Lovenox 100mg SC BID * We started patient on tab Warfarin 5 mgs PO OD * We will follow PT/INR daily * Follow TTE * we will follow cardiology and hematology * he is having bilateral lower leg swelling and tenderness possibly DVT. He wants it to be evaluated. 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 Type 2 Diabetes mellitus * NovoLog sliding scale with Accu-Cheks * Cont basal insulin 10U daily * Diabetic diet h/o anxiety, depression, psychosis, polysubstance abuse, suicide attempt and borderline personality * We will follow psychiatric recommendations * According to them, patient does not have capacity, at this time, to make a discharge about a safe discharge plan. * We'll restart patient on tab risperidon 1mg PO HS, 0.5mg PO BID, 1mg po as needed for hallucination and agitation * We'll monitor QTC * Tablet gabapentin 300 mgs PO TID, for anxiety and sleep pain * We will stop Duloxetine Chronic smoking * Nicotine patch Pain management- * He is refusing Suboxone * We will continue tablet Percocet and will increase the frequency to Q4 Diet-heart healthy diet Code status -Full code DVT prophylaxis -SQ Lovenox Problem List: 1. Pulmonary embolus 2. Opioid dependence 3. Bipolar disorder 4. Non-insulin dependent type 2 diabetes mellitus Pain Ratin Pain Location: generalized body ache and lower leg Pain Goal: Remain pain free Pain Plan: moderate to severe Tomorrow's Labs & Rationales: PT/INR on warfarin DVT/Prophylaxis: mechanical, pharmacological
[2016-10-13 08:24] LABS: ABSOLUTE BASOPHIL COUNT 0.1 /CUMM (0.0-0.2); ABSOLUTE EOSINOPHIL COUNT 0.6 /CUMM (0.0-0.7); ABSOLUTE GRANULOCYTE CT 4.3 /CUMM (1.4-6.5); ABSOLUTE MONOCYTE COUNT 1.6 /CUMM (0.10-0.60); BASOPHIL % 0.7 % (0.0-2.0); EOSINOPHIL % 5.9 % (0-5); GRANULOCYTE % 44.9 % (42.2-75.2); HEMATOCRIT 36.6 % (42-52); MEAN CORPUSCULAR HGB 28.5 PG (27.0-31.0); MEAN CORPUSCULAR HGB CONC 33.1 G/DL (33.0-37.0); MEAN CORPUSCULAR VOLUME 86.2 FL (80.0-94.0); MEAN PLATELET VOLUME 8.7 FL (7.4-10.4); PLATELET COUNT 269 /CUMM (130-400); RBC DISTRIBUTION WIDTH 12.2 % (11.5-14.5); RED BLOOD CELL CT 4.24 /CUMM (4.70-6.10); WHITE BLOOD CELL COUNT 9.5 /CUMM (4.8-10.8)
[2016-10-13 08:55] VITALS: BP 110/70
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
--- NOTE | 2016-10-13 14:09 | Cons- Cardiology ---
General Information and HPI Consulting Request Date of Consult: 10/13/16 Requested By: SOL ALEJO MD Reason for Consult: Pulmonary embolism History of Present Illness: The patient is a 36-year-old male with history of diabetes, hypertension, anxiety, and depression who is admitted with pulmonary embolism. He has had constant pleuritic chest pain for the past 3 days. He describes the pain as a substernal pressure which is a 3 out of 10 in severity and does not radiate. He also notes recent bilateral leg swelling, rate or on the right side than on the left side. The patient initially presented to 3 days ago. D-dimer was elevated and CT angiogram was suggestive of pulmnary embolism. The patient was started on heparin drip, however he left against medical advice.. He then went to [facility] where he again left against medical advice. He reports that he is feeling somewhat better at this time. His chest discomfort is improving. Lower extremity edema is improving. No current shortness of breath. No palpitations. No diaphoresis. No syncope. No lightheadedness or dizziness. No nausea or vomiting. Allergies/Medications Allergies: Coded Allergies: haloperidol (From Haldol) (Severe, MOUTH STIFFNESS 06/25/16) tramadol (Intermediate, GI UPSET 06/25/16) Home Med List: Alprazolam 1 MG TABLET 1 TAB PO TIDPRN ANXIETY (Reported) Aspirin (Ecotrin*) 81 MG TABLET.DR 1 TAB PO DAILY . (Reported) Buprenorphine HCl/Naloxone HCl (Suboxone 8 MG-2 MG Sl Film) 8 MG-2 MG FILM 1 STR SL BID WITHDRAWL (Reported) Buprenorphine HCl/Naloxone HCl (Suboxone 8 MG-2 MG Sl Film) 8 MG-2 MG FILM 0.5 STR SL QPM WITHDRAWL (Reported) Divalproex Sodium (Depakote ER) 500 MG TAB.ER.24H 1 TAB PO BID MENTAL HEALTH (Reported) Duloxetine Hydrochloride (Cymbalta) 30 MG CAPSULE.DR 1 CAP PO DAILY DEPRESSION (Reported) Fluticasone Propionate (Flonase Allergy Relief) 50 MCG/ACTUATION SPRAY.SUSP 2 SPRAY RUDI BID ALLERGIES (Reported) Furosemide 20 MG TABLET 1 TAB PO DAILY WATER PILL (Reported) Gabapentin 400 MG CAPSULE 2 CAP PO BID PAIN (Reported) Lansoprazole (Prevacid) 30 MG CAPSULE.DR 1 CAP PO DAILY GI (Reported) Metformin HCl (Glucophage) 1,000 MG TABLET 1 TAB PO BID DIABETES (Reported) Ondansetron HCl (Zofran) 4 MG TABLET 1 TAB PO TID NAUSEA (Reported) Pantoprazole Sodium (Protonix) 40 MG TABLET.DR 1 TAB PO DAILY ACID REFLUX ( Reported) Risperidone (Risperdal) 0.5 MG TABLET 1 TAB PO BID . (Reported) Current Medications: Current Medications Sig/Rodrigo Start time Last Medication Dose Route Stop Time Status Admin Acetaminophen 0 .STK-MED ONE 10/12 1806 DC IV Acetaminophen 650 MG Q6P PRN 10/12 1645 AC PO Acetaminophen 1,000 MG Q6P PRN 10/12 1645 AC 10/12 IV 1815 Buprenorphine/ 2 TAB 1200 10/13 1200 AC Naloxone SL Buprenorphine/ 1 TAB BID 10/12 2199 AC Naloxone SL Duloxetine HCl 30 MG DAILY 10/13 1000 CAN PO Enoxaparin Sodium 100 MG BID 10/12 2199 AC 10/13 SC 0840 Enoxaparin Sodium 30 MG BID 10/12 220 AC 10/13 SC 0840 Fluticasone 1 SPRAY BID 10/12 2200 AC 10/13 Propionate RUDI 0841 Furosemide 20 MG DAILY 10/13 1000 AC 10/13 PO 0839 Gabapentin 300 MG TIDPRN PRN 10/12 2335 AC PO Gabapentin 800 MG BID 10/12 2200 DC PO Haloperidol 2 MG TIDPRN PRN 10/12 2215 CAN IM Insulin Aspart 0 TIDAC 10/12 1700 AC 10/13 SC 1241 Nicotine 0 .STK-MED ONE 10/12 1610 DC TOP Nicotine 14 MG Q24 10/12 1445 AC 10/13 TOP 0841 Olanzapine 10 MG TIDPRN PRN 10/12 2215 AC IM Omeprazole 40 MG DAILY 10/13 1000 AC 10/13 PO 0841 Omeprazole 30 MG DAILY 10/12 1615 DC 10/12 PO 1609 Ondansetron HCl 4 MG BID PRN 10/12 1615 AC PO Oxycodone HCl 10 MG Q4 HRS NEEDED PRN 10/13 0915 AC PO Oxycodone HCl 0 .STK-MED ONE 10/12 1806 DC PO Oxycodone HCl 10 MG Q6P PRN 10/12 1645 DC 10/13 PO 0839 Patient Medication 1 UNIT ONE NR 10/12 1630 DC Teaching ED 10/12 1700 Patient Medication 1 UNIT ONE NR 10/12 1630 DC Teaching ED 10/12 1700 Risperidone 0.5 MG BID 10/13 1000 DC PO Risperidone 0.5 MG 1000,1700 10/13 1000 AC 10/13 PO 0840 Risperidone 1 MG BID PRN 10/12 2345 AC PO Risperidone 1 MG AT BEDTIME 10/12 2330 AC PO Risperidone 0.5 MG STAT STA 10/12 2124 DC 10/12 PO 10/12 Warfarin Sodium 5 MG COUMADIN 1700 ONE 10/13 1700 AC PO 10/13 1701 Review of Systems Review of Systems: No fever. No chills. No rash. No tremor. No melena. No hemoptysis. All other systems were reviewed, and were noted to be negative. Past History Travel History Traveled to [place] past 21 day No Medical History Blood Transfusion Hx: No Neurological: NONE EENT: NONE Cardiovascular: hypertension Respiratory: pulmonary embolism Gastrointestinal: GERD Hepatic: NONE Renal: NONE Musculoskeletal: chronic back pain Psychiatric: anxiety, bipolar disease, depression, schizophrenia, Intermittent explosive disorder Endocrine: diabetes Blood Disorders: NONE Cancer(s): NONE FORGE TENDER/Reproductive: NONE Other Medical Hx: History of substance abuse. Mood disorder. Currently on Suboxone. Suicide attempts. Psychosis Surgical History Surgical History: non-contributory Family History Relations & Conditions If Any: Relation not specified for: Psychiatric disorder Psychosocial History Smoking Status: Current Everyday Smoker ETOH Use: occasional use Illicit Drug Use: denies illicit drug use Exam & Diagnostic Data Vital Signs and I&O Vital Signs Date Time Temp Pulse Resp B/P Pulse O2 O2 Flow FiO2 Ox Delivery Rate 10/13 0855 96.5 73 18 110/70 94 Room Air 10/13 0017 97.3 76 18 114/76 96 Room Air 10/13 0000 Room Air 10/12 1830 95 Room Air 10/12 1829 98.1 81 16 141/68 94 Room Air 10/12 1712 99.1 91 16 117/67 96 Room Air 10/12 1413 88 17 117/67 97 Room Air Intake & Output 10/13 1600 10/13 0800 10/13 0000 10/12 1600 10/12 0800 10/12 0000 Intake Total 240 420 Output Total Balance 240 420 Intake, IV 20 Intake, Oral 240 400 Patient 282 lb 282 lb Weight Physical Exam: Gen: The patient is in no acute distress HEENT: Normal nose, ears, and oropharynx. Pupils equal bilaterally. Conjunctiva normal. Neck: Supple with no JVD, no masses, and no thyromegaly Lungs: Clear to auscultation with normal respiratory effort Heart: RRR, S1, S2, no murmurs. 1+ peripheral edema, 2+ pulses in the lower extremities bilaterally Abdomen: Soft, nontender, no masses. No hepatomegaly. No splenomegaly Extremities: No clubbing or cyanosis. Normal muscle strength in the upper and lower extremities Skin: Normal skin turgor with no skin ulcers or lesions noted. Neuro: Cranial nerves intact. Sensation intact Psych: Alert and oriented 3 with appropriate affect Labs/Octavio Results: Laboratory Tests 10/13 10/12 0754 0900 Chemistry Sodium (137 - 145 mmol/L) 140 Potassium (3.5 - 5.1 mmol/L) 4.3 Chloride (98 - 107 mmol/L) 102 Carbon Dioxide (22 - 30 mmol/L) 30 Anion Gap (5 - 16) 8 BUN (9 - 20 mg/dL) 11 Creatinine (0.7 - 1.2 mg/dL) 0.7 Estimated GFR (>60 ml/min) > 60 BUN/Creatinine Ratio (7 - 25 %) 15.7 Hematology CBC w Diff NO MAN DIFF REQ WBC (4.8 - 10.8 /CUMM) 9.5 RBC (4.70 - 6.10 /CUMM) 4.24 L Hgb (14.0 - 18.0 G/DL) 12.1 L Hct (42 - 52 %) 36.6 L MCV (80.0 - 94.0 FL) 86.2 MCH (27.0 - 31.0 PG) 28.5 RDW (11.5 - 14.5 %) 12.2 Plt Count (130 - 400 /CUMM) 269 MPV (7.4 - 10.4 FL) 8.7 Gran % (42.2 - 75.2 %) 44.9 Lymphocytes % (20.5 - 51.1 %) 32.0 Monocytes % (1.7 - 9.3 %) 16.5 H Eosinophils % (0 - 5 %) 5.9 H Basophils % (0.0 - 2.0 %) 0.7 Absolute Granulocytes (1.4 - 6.5 /CUMM) 4.3 Absolute Lymphocytes (1.2 - 3.4 /CUMM) 3.0 Absolute Monocytes (0.10 - 0.60 /CUMM) 1.6 H Absolute Eosinophils (0.0 - 0.7 /CUMM) 0.6 Absolute Basophils (0.0 - 0.2 /CUMM) 0.1 PUBS MCHC (33.0 - 37.0 G/DL) 33.1 Toxicology Urine Opiates Screen (>2000 NG/ML) 203.00 Methadone Screen (>300 NG/ML) < 40 Barbiturate Screen (>200 NG/ML) < 60 Ur Phencyclidine Scrn (>25 NG/ML) < 6.00 Amphetamines Screen (>1000 NG/ML) < 100 U Benzodiazepines Scrn (>200 NG/ML) < 85 Urine Cocaine Screen (>300 NG/ML) < 50 Urine Cannabis Screen (>50 NG/ML) < 5.00 03/24 0830 Chemistry Sodium (137 - 145 mmol/L) 136 L Potassium (3.5 - 5.1 mmol/L) 4.4 Chloride (98 - 107 mmol/L) 101 Carbon Dioxide (22 - 30 mmol/L) 26 Anion Gap (5 - 16) 9 BUN (9 - 20 mg/dL) 14 Creatinine (0.7 - 1.2 mg/dL) 0.7 Estimated GFR (>60 ml/min) > 60 BUN/Creatinine Ratio (7 - 25 %) 20.0 Glucose (65 - 99 mg/dL) 188 H Calcium (8.4 - 10.2 mg/dL) 9.0 Total Bilirubin (0.2 - 1.3 mg/dL) 0.3 AST (17 - 59 U/L) 22 ALT (21 - 72 U/L) 44 Alkaline Phosphatase (< 127 U/L) 54 Troponin I (<0.11 ng/ml) < 0.01 [id number] Pept (<125 pg/mL) 17.2 Total Protein (6.3 - 8.2 g/dL) 6.8 Albumin (3.5 - 5.0 g/dL) 3.6 Globulin (1.9 - 4.2 gm/dL) 3.2 Albumin/Globulin Ratio (1.1 - 2.2 %) 1.1 Coagulation PT (9.4 - 12.5 SEC) 12.1 INR (0.90 - 1.17) 1.15 APTT (25 - 37 SEC) 31 Hematology CBC w Diff NO MAN DIFF REQ WBC (4.8 - 10.8 /CUMM) 13.6 H RBC (4.70 - 6.10 /CUMM) 4.31 L Hgb (14.0 - 18.0 G/DL) 12.5 L Hct (42 - 52 %) 37.0 L MCV (80.0 - 94.0 FL) 85.8 MCH (27.0 - 31.0 PG) 28.9 RDW (11.5 - 14.5 %) 12.0 Plt Count (130 - 400 /CUMM) 259 MPV (7.4 - 10.4 FL) 9.0 Gran % (42.2 - 75.2 %) 66.7 Lymphocytes % (20.5 - 51.1 %) 19.3 L Monocytes % (1.7 - 9.3 %) 10.8 H Eosinophils % (0 - 5 %) 2.8 Basophils % (0.0 - 2.0 %) 0.4 Absolute Granulocytes (1.4 - 6.5 /CUMM) 9.1 H Absolute Lymphocytes (1.2 - 3.4 /CUMM) 2.6 Absolute Monocytes (0.10 - 0.60 /CUMM) 1.5 H Absolute Eosinophils (0.0 - 0.7 /CUMM) 0.4 Absolute Basophils (0.0 - 0.2 /CUMM) 0 PUBS MCHC (33.0 - 37.0 G/DL) 33.7 Diagnostic Data EKG Results EKG tracing is independently reviewed, and reveals normal sinus rhythm at 77 with inferior infarct age undetermined Other Results CT angiogram of the chest: Bilateral segmental/subsegmental pulmonary emboli involving the upper lobes and right lower lobe. Assessment/Plan Assessment/Plan The patient is a 36-year-old male presenting with acute pulmonary embolism. He has been started on Lovenox, and he is feeling somewhat better. He previously left 2 other hospitals AGAINST MEDICAL ADVICE. Recommendations: * Given his social issues, he is a poor candidate for warfarin because of the need for monitoring of the INR. I recommend treatment with a NOAC instead of warfarin * Recommend starting Eliquis 10 mg P0 twice a day 1 week followed by 5 mg P0 twice a day. * Discontinue Lovenox, and start Eliquism, with the first dose to be given at the time that the next dose of Lovenox would be due to be given * Would not give any further doses of warfarin. * Echocardiogram. * Hypercoagulability workup as per hematology Consult Acknowledgment - Thank you for your consult request.
--- NOTE | 2016-10-13 15:32 | Event Note ---
Event Note Event Note: I was asked by the sound technician to evaluate the patient as the patient was refusing the Doppler ultrasound testing. Medicine saw the patient he was complaining of pain in his both legs and back and requested oxycodone or Dilaudid for his leg pain. After reviewinG the EMR the patient received his scheduled oxycodone 1 hour prior to the testing. I counseled him that much of pain medications especially the oxycodone has not gone be helpful with his leg pain. The patient was agitated and was appears to traverse the bench technician and hence the test was not performed. To be noted I offered him 5 mg of oxycodone and 0.5 mg of Ativan for anxiety ,for which he refused and recommended that he should be given at least 15 mg of oxycodone.
--- NOTE | 2016-10-13 16:01 | ULTRASOUND REPORT ---
EXAMINATION: INCOMPLETE US TRIPLEX LOWER EXTREMITY, BILATERAL CLINICAL INFORMATION: Back pain. COMPARISON: None LIMITED FINDINGS AND IMPRESSION: Only the right common femoral vein was assessed and is compressible. The patient was unable to finish the examination due to pain.
--- NOTE | 2016-10-13 16:30 | PN- Psychiatry ---
Assessment/Plan Impression: I followed up today on this medical patient seen by and thoroughly evaluated by Naseem Montemayor APRN, yesterda evening, 10/12/2016. When I arrived on his unit in the early afternoon patient was sleeping soundly and it sounded, from my discussions with his treating hospitalist and nurse that this rest was much needed. The nurse hold me patient had been slightly irritable earlier in the day and responded promptly and well to limit-setting and rapidly settled down without incident. Patient is doing well on a benzodiazepine (Ativan) taper with CIWI coverage. IMPRESSION/PLAN: Ativan dose/taper schedule adjusted; patient doing well. I will check in tomorrow, 10/14/2016, with regard to mental status, impulse/temper control, Ativan taper and any other issues which may arise. Suggestion: see above Subjective Subjective: see above
[2016-10-13 22:25] VITALS: BP 112/66
[2016-10-14 07:43] VITALS: BP 114/64
[2016-10-14 08:29] LABS: ABSOLUTE BASOPHIL COUNT 0 /CUMM (0.0-0.2); ABSOLUTE EOSINOPHIL COUNT 0.4 /CUMM (0.0-0.7); ABSOLUTE GRANULOCYTE CT 5.1 /CUMM (1.4-6.5); ABSOLUTE LYMPH COUNT 2.7 /CUMM (1.2-3.4); ABSOLUTE MONOCYTE COUNT 1.3 /CUMM (0.10-0.60); BASOPHIL % 0.5 % (0.0-2.0); EOSINOPHIL % 4.6 % (0-5); GRANULOCYTE % 53.1 % (42.2-75.2); HEMATOCRIT 40.2 % (42-52); MEAN CORPUSCULAR HGB 28.4 PG (27.0-31.0); MEAN CORPUSCULAR HGB CONC 32.7 G/DL (33.0-37.0); MEAN CORPUSCULAR VOLUME 86.7 FL (80.0-94.0); MEAN PLATELET VOLUME 8.9 FL (7.4-10.4); PLATELET COUNT 285 /CUMM (130-400); RBC DISTRIBUTION WIDTH 11.8 % (11.5-14.5); RED BLOOD CELL CT 4.64 /CUMM (4.70-6.10); WHITE BLOOD CELL COUNT 9.6 /CUMM (4.8-10.8)
--- NOTE | 2016-10-14 08:58 | PN- Housestaff ---
BIBIANA LERNER 10/14/16 0858: Subjective Follow-up For: Bilateral PE Complaints: no complaints Tele-Events Since Last Visit: Normal sinus rhythm, heart rate 74-109, no overnight events. Subjective: The patient comfortable this morning. Did not have any complaints. Could not get lower extremity ocular ultrasound completed yesterday, as the patient was in a lot of pain. Agreed to get lower extremity Dopplers done today. Await psych evaluation. No other complaints. Vitals were stable overnight. Could not order workup for coagulation as it would require pathologists approval. Unfortunately, since it's the weekend, this test could not be ordered. Review of Systems Constitutional: Reports: see HPI. Objective Last 24 Hrs of Vital Signs/I&O Vital Signs Date Time Temp Pulse Resp B/P Pulse O2 O2 Flow FiO2 Ox Delivery Rate 10/14 0743 97.6 84 20 114/64 96 10/13 2225 98.1 74 20 112/66 95 Room Air Intake & Output 10/14 1600 10/14 0800 10/14 0000 Intake Total 600 800 Output Total 775 450 Balance -175 350 Intake, Oral 600 800 Output, Urine 775 450 Physical Exam General Appearance: No Acute Distress Current Medications: Current Medications Sig/Rodrigo Start time Last Medication Dose Route Stop Time Status Admin Acetaminophen 650 MG Q6P PRN 10/12 1645 AC PO Acetaminophen 1,000 MG Q6P PRN 10/12 1645 AC 10/12 IV 1815 Apixaban 10 MG BID 10/13 2200 AC 10/13 PO 2137 Buprenorphine/ 2 TAB 1200 10/13 1200 AC Naloxone SL Buprenorphine/ 1 TAB BID 10/12 2200 AC Naloxone SL Enoxaparin Sodium 100 MG BID 10/12 2200 DC 10/13 SC 0840 Enoxaparin Sodium 30 MG BID 10/12 2200 DC 10/13 SC 10/13 1600 0840 Fluticasone 1 SPRAY BID 10/12 2200 AC 10/13 Propionate RUDI 2233 Furosemide 20 MG DAILY 10/13 1000 AC 10/13 PO 0839 Gabapentin 300 MG TIDPRN PRN 10/12 2335 AC 10/14 PO 0501 Insulin Aspart 0 TIDAC 10/12 1700 AC 10/13 SC 1241 Lorazepam 0.5 MG ONCE ONE 10/13 1515 DC IV 10/13 1516 Nicotine 14 MG Q24 10/12 1445 AC 10/13 TOP 0841 Olanzapine 10 MG TIDPRN PRN 10/12 2215 AC IM Omeprazole 40 MG DAILY 10/13 1000 AC 10/13 PO 0841 Ondansetron HCl 4 MG BID PRN 10/12 1615 AC PO Oxycodone HCl 10 MG Q4 HRS NEEDED PRN 10/13 0915 AC 10/14 PO 0501 Oxycodone HCl 10 MG Q6P PRN 10/12 1645 DC 10/13 PO 0839 Risperidone 0.5 MG BID 10/13 1000 DC PO Risperidone 0.5 MG 1000,1700 10/13 1000 AC 10/13 PO 1709 Risperidone 1 MG BID PRN 10/12 2345 AC PO Risperidone 1 MG AT BEDTIME 10/12 2330 AC 10/13 PO 2137 Warfarin Sodium 5 MG COUMADIN 1700 ONE 10/13 1700 CAN PO 10/13 1701 Last 24 Hrs of Lab/Octavio Results Last 24 Hrs of Labs/Mics: Laboratory Tests 10/14/16 0655: Sodium Pending, Potassium Pending, Chloride Pending, Carbon Dioxide Pending, Anion Gap Pending, BUN Pending, Creatinine Pending, BUN/Creatinine Ratio Pending , CBC w Diff NO MAN DIFF REQ, RBC 4.64 L, MCV 86.7, MCH 28.4, RDW 11.8, MPV 8.9 , Gran % 53.1, Lymphocytes % 28.3, Monocytes % 13.5 H, Eosinophils % 4.6, Basophils % 0.5, Absolute Granulocytes 5.1, Absolute Lymphocytes 2.7, Absolute Monocytes 1.3 H, Absolute Eosinophils 0.4, Absolute Basophils 0, PUBS MCHC 32.7 L Assessment/Plan Assessment: Mr. Hernandez is a 36-year-old homeless gentleman with a PMH significant for diabetes, HTN, chronic back pain, and an extensive psychiatric history including anxiety, depression, psychosis, polysubstance abuse, suicide attempt and borderline personality disorder, who presents with a bilateral pulmonary embolism. Vital signs-temperature 96.5, pulse 73, respiratory rate 18, blood pressure 110/ 74, SPO2 94% Plan - Bilateral segmental/subsegmental pulmonary emboli involving the upper lobes and right lower lobe. * We will continue telemetery * Patient was initially started on Lovenox, which was changed to apixaban. Continue Apixaban 10 mg by mouth twice a day for a total of 5 days, and convert to 5 mg by mouth twice a day for at least 12 months. Since this is an unprovoked DVT, reevaluation bleeding versus clot-would be done at the end of 12 months. * Anticardiolipin [id number] AP workup to be done. * Check factor V Leyden mutation and prothrombin gene mutation as an outpatient. Type 2 Diabetes mellitus * NovoLog sliding scale with Accu-Cheks * Cont basal insulin 10U daily * Diabetic diet h/o anxiety, depression, psychosis, polysubstance abuse, suicide attempt and borderline personality * We will follow psychiatric recommendations * According to them, patient does not have capacity, at this time, to make a discharge about a safe discharge plan. * We'll restart patient on tab risperidon 1mg PO HS, 0.5mg PO BID, 1mg po as needed for hallucination and agitation * We'll monitor QTC * Tablet gabapentin 300 mgs PO TID, for anxiety and sleep pain * We will stop Duloxetine * Await psychiatrist evaluation. Chronic smoking * Nicotine patch Pain management- * Continue Suboxone. * We will continue tablet Percocet and will increase the frequency to Q4 Diet-heart healthy diet Code status -Full code DVT prophylaxis -SQ Lovenox Problem List: 1. Pulmonary embolus 2. Opioid dependence Pain Ratin Pain Location: Bilateral lower extremities Pain Goal: Pain 4 or less Pain Plan: Percocet Tomorrow's Labs & Rationales: CBC-to monitor H&H and leukocytosis. SOL ALEJO 10/14/16 1000: Attending MD Review Statement Attending Statement Attending MD Statement: examined this patient, discuss w/resident/PA/DENTAL SURGEON, agreed w/resident/PA/DENTAL SURGEON, discussed with family, reviewed EMR data (avail), discussed with nursing, discussed with case mgmt, reviewed images Attending Assessment/Plan: 36 o/m with pmh of dm on metformin, depression, back pain, pyshcosis, substance abuse on suboxone, anxiety, borderline personality disorder, homeless multiple hospitalisations in past and AMA. Patient presents with chest pain and SOB labs mild leukocytosis, mild elvated glucose, toxiclolgy + for opiods. Imaging reveals Acute b/l PE on CTA. Patient admitted to tele for acute PE. Patient staretd on lovenox full dose anticoagulation and warfarin. ECHO, f/u pysch and follow hematology recommendations. Hematology recommend xarelto but unsure about insurance coverage, cardiology recommend eliquis not sure about insurance coverage, discuss with case management. Patient not compliant with testing inpatient here, refused USG leg to evaluate DVT. RISS and titrate insulin as needed. gi/dvt prophyalxis, full code.
--- NOTE | 2016-10-14 13:30 | PN- Cardiology ---
Subjective Subjective: The patient complains of discomfort in his legs bilaterally. Lower extremity Doppler was attempted, however the patient was not able to tolerate the exam because of the pain. Shortness of breath improving. Chest pain improving. No palpitations. No diaphoresis. No syncope. Objective Vital Signs and I&Os Vital Signs Date Time Temp Pulse Resp B/P Pulse O2 O2 Flow FiO2 Ox Delivery Rate 10/14 0743 97.6 84 20 114/64 96 10/13 2225 98.1 74 20 112/66 95 Room Air Intake & Output 10/14 1600 10/14 0800 10/14 0000 10/13 1600 10/13 0800 10/13 0000 Intake Total 600 800 800 240 420 Output Total 775 450 600 Balance -175 350 200 240 420 Intake, IV 20 Intake, Oral 600 800 800 240 400 Output, Urine 775 450 600 Patient 282 lb Weight Physical Exam: Gen: The patient is in no acute distress HEENT: Normal nose, ears, and oropharynx. Pupils equal bilaterally. Conjunctiva normal. Neck: Supple with no JVD, no masses, and no thyromegaly Lungs: Clear to auscultation with normal respiratory effort Heart: RRR, S1, S2, no murmurs. 1+ peripheral edema, 2+ pulses in the lower extremities bilaterally Abdomen: Soft, nontender, no masses. No hepatomegaly. No splenomegaly Extremities: No clubbing or cyanosis. Normal muscle strength in the upper and lower extremities Skin: Normal skin turgor with no skin ulcers or lesions noted. Neuro: Cranial nerves intact. Sensation intact Current Medications: Current Medications Sig/Rodrigo Start time Last Medication Dose Route Stop Time Status Admin Acetaminophen 650 MG Q6P PRN 10/12 164 AC PO Acetaminophen 1,000 MG Q6P PRN 10/12 1645 AC 10/12 IV 1815 Apixaban 10 MG BID 10/13 2199 AC 10/14 PO 0850 Buprenorphine/ 2 TAB 1200 10/13 1200 AC Naloxone SL Buprenorphine/ 1 TAB BID 10/12 2199 AC 10/14 Naloxone SL 0859 Enoxaparin Sodium 100 MG BID 10/12 2199 DC 10/13 SC 0840 Enoxaparin Sodium 30 MG BID 10/12 2199 DC 10/13 SC 10/13 1600 0840 Fluticasone 1 SPRAY BID 10/12 2199 AC 10/14 Propionate RUDI 0852 Furosemide 20 MG DAILY 10/13 1000 AC 10/14 PO 0850 Gabapentin 300 MG TIDPRN PRN 10/12 2335 AC 10/14 PO 0501 Insulin Aspart 0 TIDAC 10/12 1700 AC 10/13 SC 1241 Lorazepam 0.5 MG ONCE ONE 10/13 1515 DC IV 10/13 1516 Nicotine 14 MG Q24 10/12 1445 AC 10/13 TOP 0841 Olanzapine 10 MG TIDPRN PRN 10/12 2215 AC IM Omeprazole 40 MG DAILY 10/13 1000 AC 10/14 PO 0851 Ondansetron HCl 4 MG BID PRN 10/12 1615 AC 10/14 PO 0905 Oxycodone HCl 10 MG Q4 HRS NEEDED PRN 10/13 0915 AC 10/14 PO 0905 Risperidone 0.5 MG 1000,1700 10/13 1000 AC 10/14 PO 0851 Risperidone 1 MG BID PRN 10/12 2345 AC PO Risperidone 1 MG AT BEDTIME 10/12 2330 AC 10/13 PO 2137 Warfarin Sodium 5 MG COUMADIN 1700 ONE 10/13 1700 CAN PO 10/13 1701 Results Last 48 Hrs of Labs/Mics: Laboratory Tests 10/14/16 0655: Anion Gap 7, Estimated GFR > 60, BUN/Creatinine Ratio 17.1, CBC w Diff NO MAN DIFF REQ, RBC 4.64 L, MCV 86.7, MCH 28.4, RDW 11.8, MPV 8.9, Gran % 53.1, Lymphocytes % 28.3, Monocytes % 13.5 H, Eosinophils % 4.6, Basophils % 0.5, Absolute Granulocytes 5.1, Absolute Lymphocytes 2.7, Absolute Monocytes 1.3 H, Absolute Eosinophils 0.4, Absolute Basophils 0, PUBS MCHC 32.7 L 10/13/16 0754: Anion Gap 8, Estimated GFR > 60, BUN/Creatinine Ratio 15.7, CBC w Diff NO MAN DIFF REQ, RBC 4.24 L, MCV 86.2, MCH 28.5, RDW 12.2, MPV 8.7, Gran % 44.9, Lymphocytes % 32.0, Monocytes % 16.5 H, Eosinophils % 5.9 H, Basophils % 0.7, Absolute Granulocytes 4.3, Absolute Lymphocytes 3.0, Absolute Monocytes 1.6 H, Absolute Eosinophils 0.6, Absolute Basophils 0.1, PUBS MCHC 33.1 Recent Imaging Studies: Lower Extremity Doppler study: Only the right common femoral vein was assessed and is compressible. The patient was unable to finish the examination due to pain. Assessment/Plan Assessment/Plan Assessment: 1. Acute pulmonary embolism 2. Possible deep vein thrombosis of lower extremities, unable to complete Doppler study 3. Hypertension 4. Diabetes mellitus Plan: * Continue Eliquis * Continue other medications * Echocardiogram pending Continue telemetry? Yes
--- NOTE | 2016-10-14 15:53 | ULTRASOUND REPORT ---
EXAMINATION: US TRIPLEX LOWER EXTREMITY, BILATERAL CLINICAL INFORMATION: Bilateral lower extremity pain, swelling and tenderness. COMPARISON: Incomplete Triplex ultrasound of the bilateral lower extremity veins 10/13/2016. TECHNIQUE: Color-flow triplex imaging with spectral analysis and compression Doppler were performed on the bilateral lower extremities. FINDINGS: Limited exam secondary to patient body habitus and patient's inability to tolerate compression. Respiratory variation, normal compression and augmented flow are noted throughout the bilateral lower extremities. The visualized common femoral, femoral, profunda femoral, popliteal and midcalf peroneal and posterior tibial venous segments demonstrate no evidence of deep venous thrombosis. There are no Monique's cysts. Incidental note is made of a prominent lymph node within the left groin measuring 1.3 x 0.8 x 1.4 cm. IMPRESSION: 1. No evidence of deep venous thrombosis involving the bilateral lower extremity veins, as described above. 2. Enlarged left groin lymph node measuring 1.3 x 0.8 x 1.4 cm.
[2016-10-14 16:00] VITALS: BP 130/68
--- NOTE | 2016-10-14 21:27 | NUR ---
PT REFUSING ACCUCHECK AT THIS TIME. BUSINESS PROFESSOR MITZY AWARE. WILL CONTINUE TO MONITOR.
--- NOTE | 2016-10-14 22:20 | NUR ---
PT C/O SOB & CHEST TIGHTNESS. VSS, SAT 98% ON RA. RECOVERY UNIT OPERATOR MITZY NOTIFIED & TO COME SEE PT. WILL CONTINUE TO MONITOR.
[2016-10-14 22:22] VITALS: BP 126/70
--- NOTE | 2016-10-14 22:36 | NUR ---
STAT EKG & TROPONIN ACKNOWLEDGED. WILL CONTINUE TO MONITOR.
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
--- NOTE | 2016-10-15 07:38 | Patient Discharge Instructions ---
Discharge Instructions General Discharge Information You were seen/treated for: pulmonary embolism Special Instructions: Please follow up with your primary care physician, Dr. Ugalde (wallpaper cleaner) and Dr. Muñoz (last code striper) within 1 week of discharge. Diet Continue normal diet: Yes Recommended Diet: Diabetic, Heart Healthy Activity Full Activity/No Limits: Yes (as tolerated) Acute Coronary Syndrome Inclusion Criteria At DC or during hospital stay patient has or had the following: ACS DIAGNOSIS No Discharge Core Measures Meds if any: Prescribed or Continued at Discharge Meds if any: NOT Prescribed or Continued at Discharge Congestive Heart Failure Inclusion Criteria At DC or during hospital stay patient has or had the following: CHF DIAGNOSIS No Discharge Core Measures Meds if any: Prescribed or Continued at Discharge Meds if any: NOT Prescribed or Continued at Discharge Cerebrovascular accident Inclusion Criteria At DC or during hospital stay patient has or had the following: CVA/TIA Diagnosis No Discharge Core Measures Meds if any: Prescribed or Continued at Discharge Meds if any: NOT Prescribed or Continued at Discharge Venous thromboembolism Inclusion Criteria VTE Diagnosis Yes VTE Type Pulmonary Embolism VTE Confirmed by (Test) CT CHEST ANGIOGRAM Discharge Core Measures - Per Current guidelines, there needs to be overlap - treatment for the first 5 days of Warfarin therapy. - If discharged on Warfarin prior to 5 days of - overlap therapy, the patient will need to be - assessed for post discharge needs including - *Post discharge parental anticoagulation - *Warfarin and/or parental anticoagulation education - *Follow up date to check INR post discharge At least 5 days overlap therapy as Inpatient Yes Meds if any: Prescribed or Continued at Discharge Note: Overlap Therapy is Warfarin and Anticoagulant Meds if any: NOT Prescribed or Continued at Discharge
--- NOTE | 2016-10-15 07:39 | PN- Hematology ---
Subjective Subjective: Complaining of mild chest heaviness without significant shortness of breath or hemoptysis Review of Systems: 12 point review of systems otherwise negative Objective Vital Signs and I&Os Vital Signs Date Time Temp Pulse Resp B/P Pulse O2 O2 Flow FiO2 Ox Delivery Rate 10/14 2221 98.0 90 20 126/70 98 Room Air 10/14 1600 97.5 97 20 130/68 95 Room Air 10/14 0743 97.6 84 20 114/64 96 Intake & Output 10/15 0800 10/15 0000 10/14 1600 10/14 0800 10/14 0000 10/13 1600 Intake Total 156 292 8439 600 800 800 Output Total 1050 775 450 600 Balance 480 700 -50 -175 350 200 Intake, IV 0 Intake, Oral 896 542 6556 600 800 800 Number 0 Bowel Movements Output, Urine 1050 775 450 600 Patient 282 lb Weight Gen.: in NAD ENT: Sclera anicteric Chest: Normal respiratory effort, clear breath sounds Cor: RRR, no extra sounds Abdomen: Soft, bowel sounds present, no tenderness, no rebound Extremities: Without clubbing, cyanosis, or asymmetric edema Neurology: Alert and oriented 3, no gross deficit Current Medications: Current Medications Sig/Rodrigo Start time Last Medication Dose Route Stop Time Status Admin Acetaminophen 650 MG .STK-MED ONE 10/14 1426 DC PO 10/14 1427 Acetaminophen 650 MG Q6P PRN 10/12 1645 AC 10/14 PO 1432 Acetaminophen 1,000 MG Q6P PRN 10/12 1645 AC 10/12 IV 1815 Apixaban 10 MG BID 10/13 2200 AC 10/14 PO 2142 Buprenorphine/ 2 TAB 1200 10/13 1200 AC 10/14 Naloxone SL 1333 Buprenorphine/ 1 TAB BID 10/12 2200 AC 10/14 Naloxone SL 0859 Fluticasone 1 SPRAY BID 10/12 2200 AC 10/14 Propionate RUDI 2142 Furosemide 20 MG DAILY 10/13 1000 AC 10/14 PO 0850 Gabapentin 300 MG TIDPRN PRN 10/12 2335 AC 10/14 PO 0501 Insulin Aspart 0 TIDAC 10/12 1700 AC 10/14 SC 1654 Nicotine 14 MG Q24 10/12 1445 AC 10/14 TOP 1334 Olanzapine 10 MG TIDPRN PRN 10/12 2215 AC IM Omeprazole 40 MG DAILY 10/13 1000 AC 10/14 PO 0851 Ondansetron HCl 4 MG .STK-MED ONE 10/14 0901 DC PO 10/14 0902 Ondansetron HCl 4 MG BID PRN 10/12 1615 AC 10/14 PO 0905 Oxycodone HCl 10 MG Q4 HRS NEEDED PRN 10/13 0915 AC 10/15 PO 0615 Risperidone 0.5 MG 1000,1700 10/13 1000 AC 10/14 PO 1654 Risperidone 1 MG BID PRN 10/12 2345 AC PO Risperidone 1 MG AT BEDTIME 10/12 2330 AC 10/14 PO 2142 Results Last 24 Hours of Lab Results: Laboratory Tests 10/14 2235 Chemistry Troponin I (<0.11 ng/ml) < 0.01 Recent Imaging Studies: Doppler ultrasound-no DVT, questionable small inguinal lymph node Assessment/Plan Assessment/Recommendations: Pulmonary embolism-no DVT Recommend- Continue oral anticoagulant Follow-up as an outpatient for thrombophilia workup Discussed with patient
[2016-10-15 08:52] VITALS: BP 126/80
[2016-10-15 08:53] LABS: ABSOLUTE BASOPHIL COUNT 0 /CUMM (0.0-0.2); ABSOLUTE EOSINOPHIL COUNT 0.4 /CUMM (0.0-0.7); ABSOLUTE GRANULOCYTE CT 7.4 /CUMM (1.4-6.5); ABSOLUTE LYMPH COUNT 2.4 /CUMM (1.2-3.4); ABSOLUTE MONOCYTE COUNT 1.4 /CUMM (0.10-0.60); BASOPHIL % 0.4 % (0.0-2.0); GRANULOCYTE % 63.7 % (42.2-75.2); HEMATOCRIT 40.5 % (42-52); MEAN CORPUSCULAR HGB 28.5 PG (27.0-31.0); MEAN CORPUSCULAR HGB CONC 33.1 G/DL (33.0-37.0); MEAN CORPUSCULAR VOLUME 86.1 FL (80.0-94.0); MEAN PLATELET VOLUME 9.3 FL (7.4-10.4); PLATELET COUNT 296 /CUMM (130-400); RBC DISTRIBUTION WIDTH 12.3 % (11.5-14.5); WHITE BLOOD CELL COUNT 11.6 /CUMM (4.8-10.8)
--- NOTE | 2016-10-15 09:03 | ECHOCARDIOGRAM REPORT ---
GREG FRIEDMAN Age: 36 : 1980 Gender: M Exam Date: 10/14/2016 10:23 Exam Location: 1 [address] Ht (in): 67 Wt (lb): 282 BSA: 2.53 BP: 114 / 64 Ordering Physician: LUIS EDUARDO LEDESMA MD Referring Physician: Chad Ugalde MD Technologist: Lakshmi Flynn [facility] Room Number: 171 Indications: SOURCE OF EMBOLUS Rhythm: Sinus Technical Quality: Good FINDINGS Left Ventricle Normal size left ventricle. Mild concentric left ventricular hypertrophy. Normal left ventricular ejection fraction visually estimated at >55%. Normal left ventricular wall motion. Right Ventricle Normal right ventricular size and function. Right Atrium Normal right atrial size. Left Atrium Normal left atrial size. Mitral Valve Mitral valve thickened. Aortic Valve Mild aortic valve thickened.no aortic stenosis. No aortic regurgitation. Tricuspid Valve Tricuspid valve not well visualized, grossly normal. Trace tricuspid regurgitation. No evidence of pulmonary hypertension. Pulmonic Valve Pulmonic valve not well visualized, grossly normal. Trace pulmonic regurgitation. Pericardium No pericardial effusion. Great Vessels Normal size aortic root. CONCLUSIONS Normal size left ventricle. Mild concentric left ventricular hypertrophy. Normal left ventricular ejection fraction visually estimated at > 55%. Trace tricuspid regurgitation. Trace pulmonic regurgitation. Chad Ugalde M.D. (Electronically Signed) Final Date: 15 October 2016 09:02 MEASUREMENTS (Male / Female) Normal Values 2D ECHO LV Diastolic Diameter PLAX 5.1 cm 4.2 - 5.9 / 3.9 - 5.3 cm LV Systolic Diameter PLAX 3.5 cm 2.1 - 4.0 cm LV Fractional Shortening PLAX 31.6 % 25 - 46 % LV Ejection Fraction 2D Teich 59.2 % IVS Diastolic Thickness 1.2 cm LVPW Diastolic Thickness 1.3 cm LVPW Systolic Thickness 0.1 cm LV Relative Wall Thickness 0.5 RV Internal Dim ED PLAX 3.2 cm 1.9 - 3.8 cm LVOT Diameter 2.0 cm Aortic Root Diameter 2.8 cm LA Systolic Diameter LX 4.2 cm 3.0 - 4.0 / 2.7 - 3.8 cm LA Volume 21.0 cm 18 - 58 / 22 - 52 cm Ascending Aorta Diameter 2.9 cm DOPPLER AV Peak Velocity 137.0 cm/s AV Peak Gradient 7.5 mmHg AV Mean Velocity 103.0 cm/s AV Mean Gradient 5.0 mmHg AV Velocity Time Integral 27.1 cm LVOT Peak Velocity 124.0 cm/s LVOT Peak Gradient 6.2 mmHg LVOT Mean Velocity 83.1 cm/s LVOT Mean Gradient 3.0 mmHg LVOT Velocity Time Integral 23.3 cm LVOT Stroke Volume 73.2 cm AV Area Cont Eq vti 2.7 cm AV Area Cont Eq pk 2.8 cm MV Peak Velocity 107.0 cm/s MV Peak Gradient 4.6 mmHg MV Mean Velocity 55.7 cm/s MV Mean Gradient 2.0 mmHg Mitral E Point Velocity 88.8 cm/s Mitral A Point Velocity 54.3 cm/s Mitral E to A Ratio 1.6 MV PHT Velocity 108.0 cm/s MV Deceleration Gordon 322.0 cm/s MV Pressure Half Time 100.6 ms MV Area PHT 2.2 cm MV Deceleration Time 280.0 ms TR Peak Velocity 92.3 cm/s TR Peak Gradient 3.4 mmHg Right Atrial Pressure 5.0 mmHg Pulmonary Artery Systolic Pressu 8.4 mmHg Right Ventricular Systolic Press 8.4 mmHg PV Peak Velocity 105.0 cm/s PV Peak Gradient 4.4 mmHg PV Mean Velocity 75.8 cm/s PV Mean Gradient 3.0 mmHg PV Velocity Time Integral 20.9 cm LV E' Lateral Velocity 14.2 cm/s Mitral E to LV E' Lateral Ratio 6.3 LV E' Septal Velocity 7.6 cm/s Mitral E to LV E' Septal Ratio 11.7
[2016-10-15] MEDS ORDERED: ELIQUIS5 M1 PO (09:24)
--- NOTE | 2016-10-15 10:42 | PN- Psychiatry ---
Assessment/Plan Impression: The patient refuses to sign a release for me to communicate with his store sales consultant at [facility]. He has his first appointment with a medication prescriber there, Monse Delgado APRN, on 10/17/16. He is suspicious, generally cooperative with staff, but refusing to answer questions. He does not feel that he is medically ready to leave the hospital this morning, due to SOB with exertion. When I asked him if he wished to start duloxetine/Cymbalta, he replied, "I have it in my car." Approximately 5 minutes was spent counseling the patient to only take medications as they are prescribed. He asked why his Cymbalta was held, I told him that his sodium was low on Saturday , and it can lower sodium; he said, "OK." He probably takes duloxetine/Cymbalta for neuropathic pain, per Dr. Hemphill, and it might be restarted at a low dose, for review by his regular prescriber. This should not be taken without lithium, mood casting coordinator, such as lamotrigine, or an antipsychotic, such as risperidone, due to his report of history of bipolar d/o. There is nothing in the medication reconciliation to support duloxetine, risperidone, Suboxone. We only have his report for medications and dosing, which is concerning. It seems prudent to discharge the patient on risperidone, since he had reported AH on Saturday, and also reports a history of bipolar disorder. As far as we can tell, due to the patient's lack of cooperation, he is not psychotic. He is not suicidal, and is clear to discharge from a psychiatry viewpoint. Suggestion: 1. Continue risperidone as currently ordered. 2. Hold duloxetine unless you feel the patient could benefit from it for pain managament. In that case, please start at no more than 30 mg PO daily, with review by outside prescriber within a week. 3. Discharge summary to [facility]. Thank-you for asking us to participate in [facility] care. We are signing off. Please reconsult if other psychiatric matters arise. Gabrielle Montemayor APRN, Pager [phone] Addendum: While I was writing this note, the patient removed his monitor, IV and left the building. Subjective Subjective: Alert, oriented to person, place, but not day Denies SI/HI. Denies VH, but refuses to answer the question about auditory halucinations, which he had endorsed on Saturday. Refuses to answer other questions. Objective Last 24 Hrs of Vital Signs/I&O Vital Signs Date Time Temp Pulse Resp B/P Pulse O2 O2 Flow FiO2 Ox Delivery Rate 10/15 0852 98.4 89 18 126/80 96 Room Air 10/14 2222 98.0 90 20 126/70 98 Room Air 10/14 1600 97.5 97 20 130/68 95 Room Air Intake & Output 10/15 1600 10/15 0800 10/15 0000 Intake Total 480 700 Output Total Balance 480 700 Intake, Oral 480 700 Current Medications: Current Medications Sig/Rodrigo Start time Last Medication Dose Route Stop Time Status Admin Acetaminophen 650 MG .STK-MED ONE 10/14 1426 DC PO 10/14 1427 Acetaminophen 650 MG Q6P PRN 10/12 1645 AC 10/14 PO 1432 Acetaminophen 1,000 MG Q6P PRN 10/12 1645 AC 10/12 IV 1815 Apixaban 10 MG BID 10/13 2200 AC 10/15 PO 0932 Buprenorphine/ 2 TAB 1200 10/13 1200 AC 10/14 Naloxone SL 1333 Buprenorphine/ 1 TAB BID 10/12 2200 AC 10/15 Naloxone SL 0802 Fluticasone 1 SPRAY BID 10/12 2200 AC 10/15 Propionate RUDI 0931 Furosemide 20 MG DAILY 10/13 1000 AC 10/15 PO 0932 Gabapentin 300 MG TIDPRN PRN 10/12 2335 AC 10/15 PO 0932 Insulin Aspart 0 TIDAC 10/12 1700 AC 10/15 SC 0803 Lidocaine 1 PAT DAILY PRN 10/15 0830 AC EXT Nicotine 14 MG Q24 10/12 1445 AC 10/15 TOP 0931 Olanzapine 10 MG TIDPRN PRN 10/12 2215 AC IM Omeprazole 40 MG DAILY 10/13 1000 AC 10/15 PO 0932 Ondansetron HCl 4 MG BID PRN 10/12 1615 AC 10/15 PO 0813 Oxycodone HCl 10 MG Q4 HRS NEEDED PRN 10/13 0915 AC 10/15 PO 0936 Risperidone 0.5 MG 1000,1700 10/13 1000 AC 10/15 PO 0932 Risperidone 1 MG BID PRN 10/12 2345 AC PO Risperidone 1 MG AT BEDTIME 10/12 2330 AC 10/14 PO 2142 Senna/Docusate Sodium 1 TAB BID PRN 10/15 0845 AC PO Results Last 24 Hrs of Labs/Mics: Laboratory Tests 10/15 10/14 6986 2238 Chemistry Troponin I (<0.11 ng/ml) < 0.01 Hematology CBC w Diff NO MAN DIFF REQ WBC (4.8 - 10.8 /CUMM) 11.6 H RBC (4.70 - 6.10 /CUMM) 4.70 Hgb (14.0 - 18.0 G/DL) 13.4 L Hct (42 - 52 %) 40.5 L MCV (80.0 - 94.0 FL) 86.1 MCH (27.0 - 31.0 PG) 28.5 RDW (11.5 - 14.5 %) 12.3 Plt Count (130 - 400 /CUMM) 296 MPV (7.4 - 10.4 FL) 9.3 Gran % (42.2 - 75.2 %) 63.7 Lymphocytes % (20.5 - 51.1 %) 20.5 Monocytes % (1.7 - 9.3 %) 12.4 H Eosinophils % (0 - 5 %) 3.0 Basophils % (0.0 - 2.0 %) 0.4 Absolute Granulocytes (1.4 - 6.5 /CUMM) 7.4 H Absolute Lymphocytes (1.2 - 3.4 /CUMM) 2.4 Absolute Monocytes (0.10 - 0.60 /CUMM) 1.4 H Absolute Eosinophils (0.0 - 0.7 /CUMM) 0.4 Absolute Basophils (0.0 - 0.2 /CUMM) 0 PUBS MCHC (33.0 - 37.0 G/DL) 33.1
--- NOTE | 2016-10-15 10:55 | NUR ---
Referral received this am from Dr. Hemphill. The patient is a 36 year old man, admitted to the hospital on 10/14/16 with a PE. Patienthas a history of recent AMA discharges from other hospitals, as well as a significant mental health history. Concern about patients understanding of his current medical status. Also, a question of homelessness, I arrived on the unit to see the patient and was informed by nursing staff that patient had evaluated by psychiatry and had been discharged.
--- NOTE | 2016-10-15 11:34 | Discharge Summary ---
Visit Information Visit Dates Admission Date: 10/14/16 Discharge Date: 10/15/16 Hospital Course Course Attending Physician: SOL ALEJO MD Primary Care Physician: MOHINI MONTOYAEDUARDO Hospital Course: Mr. Hernandez is a 36-year-old homeless gentleman with a PMH significant for diabetes, HTN, chronic back pain, and an extensive psychiatric history including anxiety, depression, psychosis, polysubstance abuse, suicide attempt and borderline personality disorder, who presented chest pressure with dyspnea secondary to a bilateral pulmonary embolism. # Bilateral pulmonary embolism CTA revealed segmental/subsegmental pulmonary emboli involving the upper lobes and right lower lobe. Doppler venous of both extremities were negative, although only the right common femoral vein was assessed and is compressible (The patient was unable to finish the examination due to pain). Patient was seen by a communications superintendent and a school of nursing director. He was initially started on Lovenox, which was changed to Eliquis 10mg PO BID. He received Eliquis for 3 days after which he left against medical advice. for 2 days on day 2. A prescription was called into his pharmacy for Eliquis 10mg PO BID until October 20, after which he will be on 5mg PO BID. He was instructed to follow up with a school of nursing director for further workup. # Type 2 Diabetes mellitus Patient was kept on basal insulin 10U daily with NovoLog sliding scale. He received a diabetic diet during the hospital stay. # Psychiatric conditions Patient carries a history of anxiety, depression, psychosis, polysubstance abuse , suicide attempt and borderline personality. He was seen by a psychiatry team who recommended that he receive risperidon 1mg PO HS, 0.5mg PO BID, 1mg po as needed for hallucination and agitation. Patient was kept on gabapentin 300 mgs PO TID, for anxiety and sleep pain. His home med duloxetine was held as per psych's recommendation due to hyponatremia. Patient was referred to [facility] for further psychiatric management. # Pain management- Patient was kept on home dose of Suboxone. Patient was provided an option to use lidoderm for locaized pain in the LLE. # Chronic smoking Patient received Nicotine patch. Allergies: Coded Allergies: haloperidol (From Haldol) (Severe, MOUTH STIFFNESS 06/25/16) tramadol (Intermediate, GI UPSET 06/25/16) Disposition Summary Disposition Principal Diagnosis: Pulmonary embolism Additional Diagnosis: Mild hyponatremia Discharge Disposition: left against medical adv Discharge Instructions General Discharge Information Code Status: Full Code Patient's Diet: Diabetic/heart healthy Patient's Activity: As tolerated Follow-Up Instructions/Appts: Please follow up with your primary care physician, Dr. Ugalde (communications superintendent) and Dr. Muñoz (school of nursing director) within 1 week of discharge. Medications at Discharge Discharge Medications: Stop taking the following medications: Lansoprazole (Prevacid) 30 MG CAPSULE.DR ORAL DAILY Continue taking these medications: Duloxetine Hydrochloride (Cymbalta) 30 MG CAPSULE.DR 1 Capsule ORAL DAILY Comments: NOT GIVEN Pantoprazole Sodium (Protonix) 40 MG TABLET.DR 1 Tablet ORAL DAILY Comments: Last Taken: 10/15/16 Time: 9:30 AM Alprazolam (Alprazolam) 1 MG TABLET 1 Tablet ORAL THREE TIMES A DAY NEEDED Comments: NOT GIVEN Divalproex Sodium (Depakote ER) 500 MG TAB.ER.24H 1 Tablet ORAL TWICE DAILY Comments: NOT GIVEN Aspirin (Ecotrin*) 81 MG TABLET.DR 1 Tablet ORAL DAILY Comments: NOT GIVEN Metformin HCl (Glucophage) 1,000 MG TABLET 1 Tablet ORAL TWICE DAILY Comments: NOT GIVEN Ondansetron HCl (Zofran) 4 MG TABLET 1 Tablet ORAL THREE TIMES DAILY Comments: Last Taken: 10/15/16 Time: 8 AM Risperidone (Risperdal) 0.5 MG TABLET 1 Tablet ORAL TWICE DAILY Comments: Last Taken: 10/15/16 Time: 9:30 AM Furosemide (Furosemide) 20 MG TABLET 1 Tablet ORAL DAILY Comments: Last Taken: 10/15/16 Time: 9:30 AM Fluticasone Propionate (Flonase Allergy Relief) 50 MCG/ACTUATION SPRAY.SUSP 2 [place] In the nose TWICE DAILY Comments: Last Taken: 10/15/16 Time: 9:30 AM Gabapentin (Gabapentin) 400 MG CAPSULE 2 Capsule ORAL TWICE DAILY Comments: Last Taken: 10/15/16 Time: 9:30 AM Buprenorphine HCl/Naloxone HCl (Suboxone 8 MG-2 MG Sl Film) 8 MG-2 MG FILM 1 Strip SUBLINGUAL TWICE DAILY Comments: Last Taken: 10/15/16 Time: 8 AM Buprenorphine HCl/Naloxone HCl (Suboxone 8 MG-2 MG Sl Film) 8 MG-2 MG FILM 0.5 Strip SUBLINGUAL Every night Comments: Last Taken: 10/14/16 Time: 1 PM Start taking the following new medications: Apixaban (Eliquis) 5 MG TABLET 2 Tablet ORAL TWICE DAILY Qty = 90 No Refills Instructions: Please take 2 tabs(10 mg) 10/15-10/20. 1 tab(5mg) from 10/21 onwards. Comments: Last Taken: 10/15/16 Time: 9:30 AM Copies To: ANTHONY JENKINS MD; [facility]; BHARAT MONTOYA,CAITLYN; MOHINI MONTOYA,EDUARDO; JELLY MONTOYA, JB Attending MD Review Statement Documenting Attending: SOL ALEJO MD Other Findings: Patient able to make decision and non cooperative left against medical advice. Patient explained in detail in front of nursing staff and d/wed residents future goal of care. Patient adamant to ask for opiods despite on suboxone. Patient needs to be on blood thinners for his PE which is life threatening condition. Patient choses to leave despite risks including explained to him.
== END 2016-10-15 10:40 | disposition left against medical advice (07) | DRG 134 ==
LOC: ENRESERVTM → ENRESERVDT → ERH 07:40 → 1NO 15:14 → ERHI 15:14 → EDBEDREQ 15:28 → 1NO 18:19
PROVIDERS: Internal Medicine Endocrinology, Diabetes & Metabolism; Internal Medicine Nephrology; Physician Assistant Surgical; Preventive Medicine Public Health & General Preventive Medicine; ADMIT Internal Medicine
DX: I26.99 Other pulmonary embolism without acute cor pulmonale (principal); F19.10 Other psychoactive substance abuse, uncomplicated; F60.3 Borderline personality disorder; E11.9 Type 2 diabetes mellitus without complications; Z79.84 Long term (current) use of oral hypoglycemic drugs; F20.9 Schizophrenia, unspecified; Z59.0 Homelessness; I10 Essential (primary) hypertension; F41.9 Anxiety disorder, unspecified; F32.9 Major depressive disorder, single episode, unspecified; M54.9 Dorsalgia, unspecified
CPT/HCPCS: 1NP; 36415; 80307; 82436; 93005; 93010; 93306; 93970; 96372; 99232; 99233; J0131; J0574; J1650; J3101; J3490

== ENCOUNTER 2016-12-18 22:32 | Emergency (ER) | payer OTHER ==
[~2016-12-18 22:32] MED LIST changes: +ELIQUIS5 M1 PO; +FLONASE ALLERG9.9 ML NAS; +FUROSEMIDE20 M1 PO; +GABAPENTIN400 M2 PO
--- NOTE | 2016-12-18 22:44 | ED GENERAL ADULT ---
History of Present Illness General Chief Complaint: General Adult Stated Complaint: REQUESTING MED REFILL Source: patient, old records Exam Limitations: no limitations Vital Signs & Intake/Output Vital Signs & Intake/Output Vital Signs Date Time Temp Pulse Resp B/P B/P Pulse O2 O2 Flow FiO2 Mean Ox Delivery Rate 12/18 2247 98.2 80 22 145/78 98 ED Intake and Output 12/19 0000 12/18 1200 Intake Total Output Total Balance Patient 240 lb Weight Allergies Coded Allergies: haloperidol (From Haldol) (Severe, MOUTH STIFFNESS 06/25/16) tramadol (Intermediate, GI UPSET 06/25/16) Reconcile Medications Alprazolam 1 MG TABLET 1 TAB PO TIDPRN ANXIETY (Reported) Apixaban (Eliquis) 5 MG TABLET 2 TAB PO BID Pulmonary embolism Please take 2 tabs(10 mg) 10/15-10/20. 1 tab(5mg) from 10/21 onwards. Aspirin (Ecotrin*) 81 MG TABLET.DR 1 TAB PO DAILY . (Reported) Buprenorphine HCl/Naloxone HCl (Suboxone 8 MG-2 MG Sl Film) 8 MG-2 MG FILM 1 STR SL BID WITHDRAWL (Reported) Buprenorphine HCl/Naloxone HCl (Suboxone 8 MG-2 MG Sl Film) 8 MG-2 MG FILM 0.5 STR SL QPM WITHDRAWL (Reported) Divalproex Sodium (Depakote ER) 500 MG TAB.ER.24H 1 TAB PO BID MENTAL HEALTH (Reported) Duloxetine Hydrochloride (Cymbalta) 30 MG CAPSULE.DR 1 CAP PO DAILY DEPRESSION (Reported) Fluticasone Propionate (Flonase Allergy Relief) 50 MCG/ACTUATION SPRAY.SUSP 2 SPRAY RUDI BID ALLERGIES (Reported) Furosemide 20 MG TABLET 1 TAB PO DAILY WATER PILL (Reported) Gabapentin 400 MG CAPSULE 2 CAP PO BID PAIN (Reported) Metformin HCl (Glucophage) 1,000 MG TABLET 1 TAB PO BID DIABETES (Reported) Ondansetron HCl (Zofran) 4 MG TABLET 1 TAB PO TID NAUSEA (Reported) Pantoprazole Sodium (Protonix) 40 MG TABLET.DR 1 TAB PO DAILY ACID REFLUX ( Reported) Risperidone (Risperdal) 0.5 MG TABLET 1 TAB PO BID . (Reported) Triage Nurses Notes Reviewed? yes HPI: Patient presents requesting a refill for his ELOQUIS. Patient states that his oxycodone prescription however the pharmacy says that he cannot fill it until Saturday. Patient is unsure why he ran out of it early. Patient denies any suicidal homicidal ideations. There is no bleeding. There is no chest pain or shortness of breath. Patient took his last dose this morning. Past History Travel History Traveled to [place] past 21 day No Medical History Any Pertinent Medical History? 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 Mood disorder. Currently on Suboxone. Suicide attempts. Psychosis History of MRSA: Yes History of VRE: No History of CDIFF: No Influenza Vaccine: 03/22/16 Tetanus Vaccine: 06/11/12 Surgical History Surgical History: non-contributory Psychosocial History Who do you live with Other (see notes) What is your primary language Sami Tobacco Use: Never used ETOH Use: denies use Illicit Drug Use: denies illicit drug use Family History Family History, If Any: Relation not specified for: Psychiatric disorder Hx Contributory? No Review of Systems Review of Systems Constitutional: Reports: no symptoms. Respiratory: Reports: no symptoms. Cardiovascular: Reports: no symptoms. Genitourinary: Reports: no symptoms. Musculoskeletal: Reports: no symptoms. Neurological/Psychological: Reports: no symptoms. Immunologic/Allergic: Reports: no symptoms. Physical Exam Physical Exam General Appearance: well developed/nourished, alert, awake Head: atraumatic, normal appearance Eyes: Bilateral: PERRL, EOMI. Neck: normal inspection, supple Respiratory: normal breath sounds, chest non-tender, no respiratory distress, lungs clear Cardiovascular: regular rate/rhythm, normal peripheral pulses Gastrointestinal: normal bowel sounds, soft, non-tender, no organomegaly Neurologic/Psych: no motor/sensory deficits, awake, alert, oriented x 3, normal gait, normal mood/affect Core Measures ACS in differential dx? No CVA/TIA Diagnosis: No Severe Sepsis Present: No Septic Shock Present: No Progress Differential Diagnoses I considered the following diagnoses in my evaluation of the patient: [ELIQUIS] Plan of Care: Current Medications Sig/Rodrigo Start time Last Medication Dose Stop Time Status Admin Amitriptyline HCl 5 MG ONCE ONE 12/18 2244 CAN (Elavil 10 MG Tablet) 12/18 2245 Initial ED EKG: none Departure Departure Disposition: HOME OR SELF CARE Condition: Stable Clinical Impression Primary Impression: Medication refill Referrals: EDUARDO RAJAN MD (PCP/Family) Additional Instructions: FOLLOW UP WITH YOUR DOCTOR TOMORROW Departure Forms: Customer Survey General Discharge Information Critical Care Note Critical Care Note Critical Care Time: non-applicable
[2016-12-18 22:47] VITALS: BP 145/78
== END 2016-12-18 23:01 ==
LOC: ERH 22:32
DX: Z76.0 Encounter for issue of repeat prescription (principal)
CPT/HCPCS: 99281

== ENCOUNTER 2016-12-28 05:01 | Emergency (ER) | payer OTHER ==
[~2016-12-28] VITALS: Ht 170.2 cm; Wt 127.0 kg
[2016-12-28 05:14] VITALS: BP 128/79
[2016-12-28] MEDS ORDERED: ELIQUIS2.5 M1 PO (05:40)
[2016-12-28] MEDS ORDERED: METFORMIN HCL500 M3 PO (05:40)
[2016-12-28] MEDS ORDERED: ZOFRAN4 M2 PO (05:40)
[2016-12-28] MEDS ORDERED: GABAPENTIN300 M2 PO (05:40)
[2016-12-28] MEDS ORDERED: CYMBALTA20 M1 PO (05:40)
[2016-12-28] MEDS ORDERED: LASIX40 M1 PO (05:40)
[2016-12-28] MEDS ORDERED: RISPERDAL0.5 M1 PO (05:40)
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
== END 2016-12-28 06:12 ==
LOC: ERH 05:01
DX: Z76.0 Encounter for issue of repeat prescription (principal)
CPT/HCPCS: 99281; J3101

== ENCOUNTER 2017-01-04 17:52 | Emergency (ER) | payer OTHER ==
[~2017-01-04] VITALS: Ht 170.2 cm; Wt 127.0 kg
[~2017-01-04 17:52] MED LIST changes: +CYMBALTA20 M1 PO; +ELIQUIS2.5 M1 PO; +GABAPENTIN300 M2 PO; +LASIX40 M1 PO; +METFORMIN HCL500 M3 PO
[2017-01-04 17:58] VITALS: BP 145/74
--- NOTE | 2017-01-04 19:08 | ED GENERAL ADULT ---
History of Present Illness General Chief Complaint: Lower Extremity Problems Stated Complaint: L LEG PAIN Vital Signs & Intake/Output Vital Signs & Intake/Output Vital Signs Date Time Temp Pulse Resp B/P B/P Pulse O2 O2 Flow FiO2 Mean Ox Delivery Rate 01/04 1758 97.0 70 18 145/74 100 Room Air Allergies Coded Allergies: haloperidol (From Haldol) (Severe, MOUTH STIFFNESS 06/25/16) tramadol (Intermediate, GI UPSET 06/25/16) Reconcile Medications Alprazolam 1 MG TABLET 1 TAB PO TIDPRN ANXIETY (Reported) Apixaban (Eliquis) 2.5 MG TABLET 2 TAB PO BID pe Apixaban (Eliquis) 5 MG TABLET 2 TAB PO BID Pulmonary embolism Please take 2 tabs(10 mg) 10/15-10/20. 1 tab(5mg) from 10/21 onwards. Aspirin (Ecotrin*) 81 MG TABLET.DR 1 TAB PO DAILY . (Reported) Buprenorphine HCl/Naloxone HCl (Suboxone 8 MG-2 MG Sl Film) 8 MG-2 MG FILM 1 STR SL BID WITHDRAWL (Reported) Buprenorphine HCl/Naloxone HCl (Suboxone 8 MG-2 MG Sl Film) 8 MG-2 MG FILM 0.5 STR SL QPM WITHDRAWL (Reported) Divalproex Sodium (Depakote ER) 500 MG TAB.ER.24H 1 TAB PO BID MENTAL HEALTH (Reported) Duloxetine Hydrochloride (Cymbalta) 30 MG CAPSULE.DR 1 CAP PO DAILY DEPRESSION (Reported) Duloxetine Hydrochloride (Cymbalta) 20 MG CAPSULE.DR 1 CAP PO DAILY depression Fluticasone Propionate (Flonase Allergy Relief) 50 MCG/ACTUATION SPRAY.SUSP 2 SPRAY RUDI BID ALLERGIES (Reported) Furosemide 20 MG TABLET 1 TAB PO DAILY WATER PILL (Reported) Furosemide (Lasix) 40 MG TABLET 0.5 TAB PO BID diuresis Gabapentin 400 MG CAPSULE 2 CAP PO BID PAIN (Reported) Gabapentin 300 MG CAPSULE 1 CAP PO Q6 neuropathy Metformin HCl (Glucophage) 1,000 MG TABLET 1 TAB PO BID DIABETES (Reported) Metformin HCl 500 MG TABLET 2 TAB PO BID dm Ondansetron HCl (Zofran) 4 MG TABLET 1 TAB PO TID NAUSEA (Reported) Ondansetron HCl (Zofran) 4 MG TABLET 1 TAB PO BID PRN nausea Pantoprazole Sodium (Protonix) 40 MG TABLET.DR 1 TAB PO DAILY ACID REFLUX ( Reported) Risperidone (Risperdal) 0.5 MG TABLET 1 TAB PO BID . (Reported) Risperidone (Risperdal) 0.5 MG TABLET 2 TAB PO BID depression Triage Note: PT TO ED FOR "A BLOOD CLOT IN MY LEG AND I NEED A BREATHING TREATMENT". HPI: PT is a 36-year-old homeless gentleman with a PMH significant for diabetes, HTN, chronic back pain, and an extensive psychiatric history including anxiety, depression, psychosis, polysubstance abuse, suicide attempt and borderline personality disorder, and recent admission in October 12 for concerns of PE Past History Travel History Traveled to [place] past 21 day No Medical History Neurological: NONE EENT: NONE Cardiovascular: hypertension Respiratory: pulmonary embolism Gastrointestinal: GERD Hepatic: NONE Renal: NONE Musculoskeletal: chronic back pain Psychiatric: anxiety, bipolar disease, depression, schizophrenia, Intermittent explosive disorder Endocrine: diabetes Blood Disorders: NONE Cancer(s): NONE 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 Mood disorder. Currently on Suboxone. Suicide attempts. Psychosis History of MRSA: Yes History of VRE: No History of CDIFF: No Tetanus Vaccine: 06/11/12 Surgical History Surgical History: non-contributory Psychosocial History Who do you live with Other (see notes) What is your primary language Luxembourger Tobacco Use: Current Daily Use Daily Tobacco Use Amount/Type: => 5 Cigarettes daily ETOH Use: occasional use Illicit Drug Use: marijuana Family History Family History, If Any: Relation not specified for: Psychiatric disorder Departure Departure Condition: Stable Referrals: EDUARDO RAJAN MD (PCP/Family) Departure Forms: Customer Survey General Discharge Information
--- NOTE | 2017-01-04 19:49 | ED GENERAL ADULT ---
History of Present Illness General Chief Complaint: Lower Extremity Problems Stated Complaint: L LEG PAIN Source: patient, old records Exam Limitations: no limitations Vital Signs & Intake/Output Vital Signs & Intake/Output Vital Signs Date Time Temp Pulse Resp B/P B/P Pulse O2 O2 Flow FiO2 Mean Ox Delivery Rate 01/04 1758 97.0 70 18 145/74 100 Room Air Allergies Coded Allergies: haloperidol (From Haldol) (Severe, MOUTH STIFFNESS 06/25/16) tramadol (Intermediate, GI UPSET 06/25/16) Reconcile Medications Alprazolam 1 MG TABLET 1 TAB PO TIDPRN ANXIETY (Reported) Apixaban (Eliquis) 2.5 MG TABLET 2 TAB PO BID pe Apixaban (Eliquis) 5 MG TABLET 2 TAB PO BID Pulmonary embolism Please take 2 tabs(10 mg) 10/15-10/20. 1 tab(5mg) from 10/21 onwards. Aspirin (Ecotrin*) 81 MG TABLET.DR 1 TAB PO DAILY . (Reported) Buprenorphine HCl/Naloxone HCl (Suboxone 8 MG-2 MG Sl Film) 8 MG-2 MG FILM 1 STR SL BID WITHDRAWL (Reported) Buprenorphine HCl/Naloxone HCl (Suboxone 8 MG-2 MG Sl Film) 8 MG-2 MG FILM 0.5 STR SL QPM WITHDRAWL (Reported) Divalproex Sodium (Depakote ER) 500 MG TAB.ER.24H 1 TAB PO BID MENTAL HEALTH (Reported) Duloxetine Hydrochloride (Cymbalta) 30 MG CAPSULE.DR 1 CAP PO DAILY DEPRESSION (Reported) Duloxetine Hydrochloride (Cymbalta) 20 MG CAPSULE.DR 1 CAP PO DAILY depression Fluticasone Propionate (Flonase Allergy Relief) 50 MCG/ACTUATION SPRAY.SUSP 2 SPRAY RUDI BID ALLERGIES (Reported) Furosemide 20 MG TABLET 1 TAB PO DAILY WATER PILL (Reported) Furosemide (Lasix) 40 MG TABLET 0.5 TAB PO BID diuresis Gabapentin 400 MG CAPSULE 2 CAP PO BID PAIN (Reported) Gabapentin 300 MG CAPSULE 1 CAP PO Q6 neuropathy Metformin HCl (Glucophage) 1,000 MG TABLET 1 TAB PO BID DIABETES (Reported) Metformin HCl 500 MG TABLET 2 TAB PO BID dm Ondansetron HCl (Zofran) 4 MG TABLET 1 TAB PO TID NAUSEA (Reported) Ondansetron HCl (Zofran) 4 MG TABLET 1 TAB PO BID PRN nausea Pantoprazole Sodium (Protonix) 40 MG TABLET. 1 TAB PO DAILY ACID REFLUX ( Reported) Risperidone (Risperdal) 0.5 MG TABLET 1 TAB PO BID . (Reported) Risperidone (Risperdal) 0.5 MG TABLET 2 TAB PO BID depression Triage Note: PT TO ED FOR "A BLOOD CLOT IN MY LEG AND I NEED A BREATHING TREATMENT". Triage Nurses Notes Reviewed? yes Onset: Gradual Duration: constant Timing: recent history Severity: moderate Severity Numbers: 5 HPI: PT is a 36-year-old homeless gentleman with a PMH significant for diabetes, HTN, chronic back pain, and an extensive psychiatric history including anxiety, depression, psychosis, polysubstance abuse, suicide attempt and borderline personality disorder, and recent admission in October 12 for bilateral PE in which patient currently is on ELIQUIS where he states that he is compliant with medications who presents emergency room with concerns stating that "I have blood clots in my lung and the my legs" Patient states that he was evaluated by primary care doctor this week Patient also complains of shortness of breath chest pain Patient is an every day smoker (LUIS EDUARDO BHARDWAJ) Past History Travel History Traveled to [place] past 21 day No Medical History Any Pertinent Medical History? 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 Mood disorder. Currently on Suboxone. Suicide attempts. Psychosis History of MRSA: Yes History of VRE: No History of CDIFF: No Tetanus Vaccine: 06/11/12 Surgical History Surgical History: non-contributory Psychosocial History Who do you live with Other (see notes) What is your primary language [place] Tobacco Use: Current Daily Use Daily Tobacco Use Amount/Type: => 5 Cigarettes daily ETOH Use: occasional use Illicit Drug Use: marijuana Family History Family History, If Any: Relation not specified for: Psychiatric disorder Hx Contributory? No (LUIS EDUARDO BHARDWAJ) Review of Systems Review of Systems Constitutional: Reports: see HPI, fever. EENTM: Reports: no symptoms. Respiratory: Reports: see HPI, cough, short of breath. Cardiovascular: Reports: see HPI, chest pain, peripheral edema. GI: Reports: no symptoms. Genitourinary: Reports: no symptoms. Musculoskeletal: Reports: see HPI. Skin: Reports: no symptoms. Neurological/Psychological: Reports: no symptoms. Hematologic/Endocrine: Reports: no symptoms. Immunologic/Allergic: Reports: no symptoms. All Other Systems: Reviewed and Negative (LUIS EDUARDO BHARDWAJ) Physical Exam Physical Exam General Appearance: no apparent distress, obese Comments: HEENT: Normal EENT exam, Neck: Supple, no lymphadenopathy, normal range of motion without pain or tenderness Back: Nontender, no CVA tenderness Cardiovascular: Regular rate and rhythms no murmurs rubs or gallops, normal JVP Respiratory: Chest nontender. No respiratory distress.breath sounds clear to auscultation bilaterally Abdomen: Soft, nontender nondistended, no appreciable organomegaly. Normal bowel sounds. No ascites Extremity: , Left lower extremity noted +2 edema with mild erythema warmth to the anterior ankle region pedal pulse +2 dermatomes intact Right lower extremity +1 pitting edema Neuro: Alert oriented x3, motor sensory normal, Skin: No appreciable rash on exposed skin, skin is warm and dry. Psych: Mood and affect is normal, memory and judgment is normal. Core Measures ACS in differential dx? Yes CVA/TIA Diagnosis: No Severe Sepsis Present: No Septic Shock Present: No (LUIS EDUARDO BHARDWAJ) Progress Differential Diagnoses I considered the following diagnoses in my evaluation of the patient: [ Cellulitis, PE, myocardial infarction, pneumothorax, hemothorax, DVT, COPD, asthma exacerbation] Plan of Care: Patient on initial examination had clear lungs auscultation no respiratory distress when discussing the plan with patient to obtain ultrasound, blood work and nebulizer treatments and possible CT scan imaging he stated that he needed to go outside to "get his phone runner on" I discussed with patient that leaving the emergency room is against hospital policy that if he left he needed to check back in with patient eloped from the emergency room. Initial ED EKG: none (LUIS EDUARDO BHARDWAJ) Departure Departure Disposition: ER WALKOUT Condition: Stable Clinical Impression Primary Impression: Chest pain Secondary Impressions: Leg swelling Referrals: EDUARDO RAJAN MD (PCP/Family) Departure Forms: Customer Survey General Discharge Information (LUIS EDUARDO BHARDWAJ) PA/DRAFTING CLERK Co-Sign Statement Statement: the labial abscess latelyED Attending supervision documentation- [] I saw and evaluated the patient. I have also reviewed all the pertinent lab results and diagnostic results. I agree with the findings and the plan of care as documented in the PA's/DRAFTING CLERK's documentation. [x I have reviewed the ED Record and agree with the PA's/DRAFTING CLERK's documentation. [] Additions or exceptions (if any) to the PAs/DRAFTING CLERK's note and plan are summarized below: [] (LACEY RONQUILLO,DAGOBERTO Coughlin) Critical Care Note Critical Care Note Critical Care Time: non-applicable (LUIS EDUARDO BHARDWAJ)
[2017-01-04] MEDS ORDERED: VENTOLIN HFA18 GM INH (21:28)
== END 2017-01-04 19:45 | disposition admitted as inpatient to this hospital (09) ==
LOC: ERH 17:52
DX: R07.9 Chest pain, unspecified (principal); M79.89 Other specified soft tissue disorders

== ENCOUNTER 2017-01-04 19:44 | Emergency (ER) | payer OTHER ==
--- NOTE | 2017-01-04 20:10 | ED UPPER/LOWER EXTREMITY COMPL ---
History of Present Illness General Chief Complaint: Lower Extremity Problems Stated Complaint: PT IS HERE FOR LEG PAIN Source: patient Exam Limitations: no limitations Vital Signs & Intake/Output Vital Signs & Intake/Output . pt declines vitals Allergies Coded Allergies: haloperidol (From Haldol) (Severe, MOUTH STIFFNESS 06/25/16) tramadol (Intermediate, GI UPSET 06/25/16) Reconcile Medications Albuterol Sulfate (Ventolin Hfa) 90 MCG HFA.AER.AD 2 PUF INH Q4-6 PRN PRN ASTHMA Alprazolam 1 MG TABLET 1 TAB PO TIDPRN ANXIETY (Reported) Apixaban (Eliquis) 2.5 MG TABLET 2 TAB PO BID pe Apixaban (Eliquis) 5 MG TABLET 2 TAB PO BID Pulmonary embolism Please take 2 tabs(10 mg) 10/15-10/20. 1 tab(5mg) from 10/21 onwards. Aspirin (Ecotrin*) 81 MG TABLET.DR 1 TAB PO DAILY . (Reported) Buprenorphine HCl/Naloxone HCl (Suboxone 8 MG-2 MG Sl Film) 8 MG-2 MG FILM 1 STR SL BID WITHDRAWL (Reported) Buprenorphine HCl/Naloxone HCl (Suboxone 8 MG-2 MG Sl Film) 8 MG-2 MG FILM 0.5 STR SL QPM WITHDRAWL (Reported) Divalproex Sodium (Depakote ER) 500 MG TAB.ER.24H 1 TAB PO BID MENTAL HEALTH (Reported) Duloxetine Hydrochloride (Cymbalta) 30 MG CAPSULE.DR 1 CAP PO DAILY DEPRESSION (Reported) Duloxetine Hydrochloride (Cymbalta) 20 MG CAPSULE.DR 1 CAP PO DAILY depression Fluticasone Propionate (Flonase Allergy Relief) 50 MCG/ACTUATION SPRAY.SUSP 2 SPRAY RUDI BID ALLERGIES (Reported) Furosemide 20 MG TABLET 1 TAB PO DAILY WATER PILL (Reported) Furosemide (Lasix) 40 MG TABLET 0.5 TAB PO BID diuresis Gabapentin 400 MG CAPSULE 2 CAP PO BID PAIN (Reported) Gabapentin 300 MG CAPSULE 1 CAP PO Q6 neuropathy Metformin HCl (Glucophage) 1,000 MG TABLET 1 TAB PO BID DIABETES (Reported) Metformin HCl 500 MG TABLET 2 TAB PO BID dm Ondansetron HCl (Zofran) 4 MG TABLET 1 TAB PO TID NAUSEA (Reported) Ondansetron HCl (Zofran) 4 MG TABLET 1 TAB PO BID PRN nausea Pantoprazole Sodium (Protonix) 40 MG TABLET. 1 TAB PO DAILY ACID REFLUX ( Reported) Risperidone (Risperdal) 0.5 MG TABLET 1 TAB PO BID . (Reported) Risperidone (Risperdal) 0.5 MG TABLET 2 TAB PO BID depression Triage Note: PT SEEN HERE JUST PRIOR TO SIGNING IN BUT REFUSED TO BE FULLY ASSESSED BY LUIS EDUARDO BRUNNER AND WALKED OUT. PT WAS SEEN THEN FOR LEG SWELLING AND "NEEDING A TREATMENT" BUT IS REFUSING TO ANSWER QUESTIONS TO THIS RN. PT STATES HE WILL ONLY BE SEEN BY DR MAIN. PT APPEARS IN NO DISTRESS, SKIN WARM AND DRY. PT IS REFUSING VITALS, STATES HE HAD THEM DONE ON THE PRIOR ACCOUNT. PT INFORMED OF POLICY AND WHY THE ER ENFORCES WALKING OUT OF DEPARTMENT. Triage Nurses Notes Reviewed? yes Onset: Gradual Duration: day(s): Timing: recent history Severity: mild, moderate Pain/Injury Location: Left: Leg. Method of Injury: chronic swelling Modifying Factors: Improves With: rest. Associated Symptoms: swelling HPI: 36 yo gentleman h/o dvt and pe, on eliquis, presents with left lower extremity swelling. "It's gotten worse over the past few days." He states that he is compliant with his eliquis. He notes no chest pain, dyspnea, fever. He notes that he is taking suboxone for opioid dependence. He is otherwise well. Past History Travel History Traveled to [place] past 21 day No Medical History Any Pertinent Medical History? 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 Mood disorder. Currently on Suboxone. Suicide attempts. Psychosis History of MRSA: Yes History of VRE: No History of CDIFF: No Tetanus Vaccine: 06/11/12 Surgical History Surgical History: non-contributory Psychosocial History Who do you live with Other (see notes) What is your primary language Dive[place] Tobacco Use: Refused to answer Family History Family History, If Any: Relation not specified for: Psychiatric disorder Hx Contributory? No Review of Systems Review of Systems Constitutional: Reports: no symptoms. EENTM: Reports: no symptoms. Respiratory: Reports: no symptoms. Cardiovascular: Reports: no symptoms. Gastrointestinal/Abdominal: Reports: no symptoms. Genitourinary: Reports: no symptoms. Musculoskeletal: Reports: no symptoms. Skin: Reports: no symptoms. Neurological/Psychological: Reports: no symptoms. Hematologic/Endocrine: Reports: no symptoms. Immunological: Reports: no symptoms. All Other Systems: Reviewed and Negative Physical Exam Physical Exam General Appearance: well developed/nourished, mild distress Head: atraumatic Eyes: Bilateral: normal appearance. Ears, Nose, Throat: normal pharynx, normal ENT inspection, hearing grossly normal Neck: normal inspection, supple Cardiovascular/Respiratory: regular rate/rhythm Back: normal inspection Leg Left: diffuse swelling in left lower extremity, 1-2+ pitting edema. no increased warmth. Skin: intact, normal color, warm/dry Lymphatic: no anterior cervical philip Progress Differential Diagnosis: cellulitis, DVT, sprain Plan of Care: Current Medications Sig/Rodrigo Start time Last Medication Dose Stop Time Status Admin Acetaminophen 650 MG ONCE ONE 01/04 2130 UNVr (Tylenol) 01/04 2131 Diagnostic Imaging: Viewed by Me: Ultrasound. Discussed w/RAD: Ultrasound. Radiology Impression: U/S - NO DVT Comments: PATIENT: GREG FRIEDMAN PRESENT AGE: 36 PATIENT ACCOUNT NO: [id number] : 81 LOCATION: [facility] ORDERING PHYSICIAN: RADHA MAIN MD SERVICE DATE: 01/04/17 EXAM TYPE: US - US-UNILATERAL VENOUS DOPPLER EXAMINATION: US TRIPLEX LOWER EXTREMITY, LEFT CLINICAL INFORMATION: Edema. Pain. Discoloration. Swelling. Inflammation. Leg tenderness. Skin changes. COMPARISON: Ultrasound lower extremity bilateral 10/14/2016 TECHNIQUE: Color-flow triplex imaging with spectral analysis and compression Doppler were performed on the lower extremity. FINDINGS: Respiratory variation, normal compression and augmented flow are noted throughout the left lower extremity. The visualized common femoral vein, superficial femoral vein, profunda femoral vein, popliteal vein and midcalf peroneal and posterior tibial venous segments show no evidence of deep venous thrombosis. There is no Monique's cyst. IMPRESSION: Normal triplex scan without evidence of deep venous thrombosis involving the lower extremity. 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 <Electronically signed in Other Vendor System> SIGNED BY: JOSIE RICKETTS MD 01/04/172056 Departure Departure Disposition: HOME OR SELF CARE Condition: Stable Clinical Impression Primary Impression: Lower extremity edema Referrals: EDUARDO RAJAN MD (PCP/Family) Departure Forms: Customer Survey General Discharge Information Prescriptions: Current Visit Scripts Albuterol Sulfate (Ventolin Hfa) 2 PUF INH Q4-6 PRN PRN ASTHMA #1 INHAL Comments 01/04/17, 21:29.... PT WITH NEGATIVE U/S FOR DVT... DISCUSSED AT LENGTH WITH PATIENT... HE ASKS FOR REFILL OF HIS ALBUTEROL.... PT ADVISED TO FOLLOW UP WITH PMD. REFILL FOR ALBUTEROL SENT TO PHARMACY.
--- NOTE | 2017-01-04 20:57 | ULTRASOUND REPORT ---
EXAMINATION: US TRIPLEX LOWER EXTREMITY, LEFT CLINICAL INFORMATION: Edema. Pain. Discoloration. Swelling. Inflammation. Leg tenderness. Skin changes. COMPARISON: Ultrasound lower extremity bilateral 10/14/2016 TECHNIQUE: Color-flow triplex imaging with spectral analysis and compression Doppler were performed on the lower extremity. FINDINGS: Respiratory variation, normal compression and augmented flow are noted throughout the left lower extremity. The visualized common femoral vein, superficial femoral vein, profunda femoral vein, popliteal vein and midcalf peroneal and posterior tibial venous segments show no evidence of deep venous thrombosis. There is no Monique's cyst. IMPRESSION: Normal triplex scan without evidence of deep venous thrombosis involving the lower extremity.
[2017-01-04] MEDS ORDERED: VENTOLIN HFA18 GM INH (21:28)
== END 2017-01-04 22:00 ==
LOC: ERH 19:44
DX: R60.0 Localized edema (principal)

== ENCOUNTER 2017-07-23 23:04 | Emergency (ER) | payer OTHER ==
[~2017-07-23] VITALS: Ht 170.2 cm; Wt 127.0 kg
[~2017-07-23 23:04] MED LIST changes: +CARAFATE1 G1 PO; +LASIX20 M1 PO; +METFORMIN HCL1000 M1 PO; +MULTI-DAY VITA1 EACH PO; +NEXIUM40 M1 PO; +PROAIR HFA8.5 GM INH; +PROMETHAZINE HC25 M3 PO; +RISPERDAL0.25 M1 PO; +SUBOXONE 12 MG1 EACH SL; +VENTOLIN HFA18 GM INH; +ZOFRAN ODT4 M1 SL; +ZOFRAN8 M1 PO
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
== END 2017-07-24 02:30 ==
LOC: ERH 23:04
DX: M54.5 Low back pain (principal); M25.552 Pain in left hip; M54.6 Pain in thoracic spine; V89.2XXD Person injured in unspecified motor-vehicle accident, traffic, subsequent encounter; Y92.9 Unspecified place or not applicable
CPT/HCPCS: 71046; 72080; 73502-LT

== ENCOUNTER 2017-08-20 23:11 | Emergency (ER) | payer OTHER ==
[~2017-08-20] VITALS: Ht 172.7 cm; Wt 127.0 kg
[2017-08-20 23:19] VITALS: BP 148/89
== END 2017-08-21 00:10 | disposition admitted as inpatient to this hospital (09) ==
LOC: ERH 23:11
DX: T14.90XA Injury, unspecified, initial encounter (principal); V89.2XXA Person injured in unspecified motor-vehicle accident, traffic, initial encounter

== ENCOUNTER 2017-08-27 03:35 | Emergency (ER) | payer OTHER ==
[~2017-08-27] VITALS: Ht 172.7 cm; Wt 124.7 kg
[2017-08-27 03:53] VITALS: BP 114/78
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
[2017-08-27] MEDS ORDERED: GABAPENTIN400 M2 PO (04:33)
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
== END 2017-08-27 05:08 ==
LOC: ERH 03:35
DX: S09.90XA Unspecified injury of head, initial encounter (principal); V49.40XA Driver injured in collision with unspecified motor vehicles in traffic accident, initial encounter; Y92.9 Unspecified place or not applicable
CPT/HCPCS: 71046

== ENCOUNTER 2017-09-25 08:42 | Emergency (ER) | payer OTHER ==
[~2017-09-25] VITALS: Ht 170.2 cm; Wt 120.2 kg
--- NOTE | 2017-09-25 08:51 | ED INFLUENZA/URI COMPLAINT ---
History of Present Illness General Chief Complaint: Upper Respiratory Sx/Fever Stated Complaint: URI Source: patient, old records Exam Limitations: no limitations Vital Signs & Intake/Output Vital Signs & Intake/Output Vital Signs Date Time Temp Pulse Resp B/P B/P Pulse O2 O2 Flow FiO2 Mean Ox Delivery Rate 09/25 1027 98.7 81 18 136/81 99 Room Air 09/25 1027 97 Room Air 09/25 0845 98.3 79 18 148/72 99 Room Air Allergies Coded Allergies: No Known Drug Allergies (NKDA 08/27/17) Triage Nurses Notes Reviewed? yes Onset: Gradual Duration: week(s): (2), constant Timing: recent history Severity: moderate Severity Numbers: 6 Prior Episodes/Possible Cause: occassional episodes No Modifying Factors: none Associated Symptoms: cough, muscle aches, nasal congestion HPI: 36 Year old male with PMH significant for PE on eliquis, diabetes, HTN, chronic back pain, anxiety, depression, psychosis, polysubstance abuse, suicide attempt and borderline personality disorder presents to the ER for evaluation today complaining of persistent upper respiratory symptoms for the past 2 weeks. He saw his primary care physician prescribed an antibiotic and Tessalon Perles with no improvement. He complains of general has bodyaches subjective fevers cough productive of yellow sputum. No shortness of breath chest pain abdominal pain nausea vomiting diarrhea. He is an active smoker. No pain with inspiration, hemoptysis. he has been compliant with taking his elliquis. ([place] SUE,Rickey) Reconcile Medications Albuterol Sulfate (Ventolin Hfa) 90 MCG HFA.AER.AD 2 PUF INH Q4-6 PRN PRN ASTHMA Albuterol Sulfate (Proair Hfa) 90 MCG HFA.AER.AD 2 PUF INH Q4-6 PRN PRN ASTHMA Apixaban (Eliquis) 5 MG TABLET 1 TAB PO BID blood thinner Apixaban (Eliquis) 2.5 MG TABLET 2 TAB PO BID pe Azithromycin (Zithromax) 250 MG TABLET 1 DP PO AD BRONCHITIS 2 the first day followed by 1 for days 2-5 Buprenorphine HCl/Naloxone HCl (Suboxone 12 MG-3 MG Sl Film) 12 MG-3 MG FILM 1 STR SL 4XDAILY CHRONIC PAIN/SUBSTANCE ABUSE (Reported) Codeine Phosphate/Guaifenesi (Guaifen-Codeine 100-10 MG/5 Ml) 10 MG-100 MG/5 ML LIQUID 5-10 ML PO Q6HR PRN COUGH Duloxetine Hydrochloride (Cymbalta) 30 MG CAPSULE.DR 1 CAP PO DAILY DEPRESSION (Reported) Duloxetine Hydrochloride (Cymbalta) 30 MG CAPSULE.DR 1 CAP PO DAILY depression /pain Esomeprazole (Nexium) 40 MG CAPSULE.DR 1 CAP PO DAILY GI (Reported) Esomeprazole (Nexium) 40 MG CAPSULE.DR 1 CAP PO DAILY stomach burning Furosemide 20 MG TABLET 2 TAB PO DAILY WATER PILL (Reported) Furosemide (Lasix) 20 MG TABLET 2 TAB PO DAILY water retention Gabapentin 400 MG CAPSULE 2 CAP PO QPM NERVE PAIN (Reported) Gabapentin 400 MG CAPSULE 1 CAP PO TID nerve pain Gabapentin 400 MG CAPSULE 1 CAP PO TID NEUROPATHY Metformin HCl (Glucophage) 1,000 MG TABLET 1 TAB PO BID DIABETES (Reported) Metformin HCl 1,000 MG TABLET 1 TAB PO BID diabetes Methylprednisolone. (Medrol) 4 MG TAB.DS.PK 1 DP PO AD BRONCHITIS 6 on day 1 then reduce by one tablet daily until gone Multivitamin (Multi-Day Vitamins) 1 EACH TABLET 1 TAB PO DAILY SUPPLEMENT ( Reported) Ondansetron (Zofran Odt) 4 MG TAB.RAPDIS 1 TAB SL TID PRN nausea Ondansetron HCl (Zofran) 8 MG TABLET 1 TAB PO TID PRN N/V (Reported) Promethazine HCl 25 MG TABLET 1 TAB PO Q6P PRN nausea Risperidone (Risperdal) 0.25 MG TABLET 1 TAB PO BID MENTAL HEALTH (Reported) Risperidone (Risperdal) 1 MG TABLET 1 TAB PO DAILY MENTAL HEALTH Sucralfate (Carafate) 1 GRAM TABLET 1 TAB PO 4 TIMES/DAY abdominal pain (Court MONTOYA,Mick Don) Past History Travel History Traveled to [place] past 21 day No Medical History Any Pertinent Medical History? 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 Mood disorder. Currently on Suboxone. Suicide attempts. Psychosis History of MRSA: Yes History of VRE: No History of CDIFF: No Tetanus Vaccine: 06/11/12 Surgical History Surgical History: non-contributory Psychosocial History Who do you live with Other (see notes) What is your primary language [place] Tobacco Use: Current Daily Use Daily Tobacco Use Amount/Type: => 5 Cigarettes daily Family History Family History, If Any: Relation not specified for: Psychiatric disorder Hx Contributory? No (Rickey Suarez) Review of Systems Review of Systems Constitutional: Reports: see HPI. Comments Review of systems: See HPI, All other systems negative. Constitutional, no chills no fever, HEENT: no sore throat no congestion Cardiovascular: No chest pain Skin: no rashes, no change in skin Respiratory: No dyspnea cough sputum GI: No nausea no vomiting, no diarrhea Muscle skeletal: No joint pain, no back pain Neurologic: , no headache Heme/endocrine: No bruising Immunology: No lymphadenopathy (Rickey Suarez) Physical Exam Physical Exam General Appearance: well developed/nourished, no apparent distress, alert Ears, Nose, Throat: normal ENT inspection Comments: Well-developed well-nourished patient in no apparent distress. Head/Face: Atraumatic, no maxillary/frontal sinus tenderness, Eyes: PERRL, EOMI, no conjunctival injection Ear:External auditory canal and Tympanic membranes clear, no erythema Nose: atraumatic.Normal inspection: No bleeding, no septal hematoma Throat: Moist mucous membranes.Pharynx normal. No pharyngeal erythema/exudate seen. No stridor/drooling or assymetry. No swelling or edema. Neck: Supple, no lymphadenopathy, FROM Back: FROM Cardiovascular: Regular rate and rhythms no murmur Respiratory: Chest nontender.There were no bony deformities, no asymmetry. No respiratory distress. Patient speaking in full complete sentences. Breath sounds clear to auscultation bilaterally: NO W/R/R Extremities: full range of motion Neuro: awake, alert, and oriented to person, place and time. There were no obvious focal neurologic abnormalities. Skin: Warm & dry;No appreciable rash on exposed skin Psych: Mood affect normal, normal memory normal judgment. Core Measures Sepsis Present: No Sepsis Focused Exam Completed? No (Rickey Suarez) Progress Differential Diagnosis: influenza, otitis, pneumonia, pharyngitis, sinusitis Plan of Care: Orders Procedure Date/time Status RAPID VIRAL INFLUENZA A 09/25 846 Complete Microbiology 09/26 847 NASOPHARYN: Influenza Virus A & B Rapid Smear - COMP Patient speaking in full complete sentences are clear auscultation x-ray and flu swab Ordered I discussed with the patient at length all of their results. He is been speaking in full complete sentences in no respiratory distress afebrile nontoxic appearing. I had an extensive conversation regarding need for close follow up with their primary care physician this week as well as return precautions. I answered all of their questions, they feel comfortable with the plan and follow- up care. I discussed with the patient/family the medications that they will receive. I gave them signs and symptoms that could indicate an adverse reaction. I have advised them to limit their activities until they can see how they respond to the medication. Diagnostic Imaging: Viewed by Me: Radiology Read. Discussed w/RAD: Radiology Read. Radiology Impression: PATIENT: GREG FRIEDMAN PRESENT AGE: 36 PATIENT ACCOUNT NO: [id number] : 81 LOCATION: [facility] ORDERING PHYSICIAN: Rickey SUE SERVICE DATE: 09/25/17 EXAM TYPE: RAD - XRY-CHEST XRAY, TWO VIEWS EXAMINATION: XR CHEST CLINICAL INFORMATION: Cough, fever COMPARISON: 08/27/2017 TECHNIQUE: 2 views of the chest were obtained. FINDINGS: Lungs are clear. No focal consolidation or mass. Normal pulmonary vascularity. No pleural effusion or pneumothorax. Normal heart size. There are multilevel degenerative changes of the thoracic spine IMPRESSION: No acute pulmonary disease. DICTATED BY: Ray Spain MD DATE/TIME DICTATED:02/05 WASTE WATER OR WATER PLANT OPERATOR:CHERYL DATE/TIME TRANSCRIBED:09/25/171006 CONFIDENTIAL, DO NOT COPY WITHOUT APPROPRIATE AUTHORIZATION. <Electronically signed in Other Vendor System> SIGNED BY: Ray Spain MD 09/25/17 1012 Initial ED EKG: none ([place] SUE,Rickey) Departure Departure Time of Disposition: 1015 Disposition: HOME OR SELF CARE Condition: Stable Clinical Impression Primary Impression: Bronchitis Referrals: Ortiz Andersen MD (PCP/Family) Additional Instructions: zpak and medrol dose pema as directed. guaifensin with codeine for cough. this may make you drowsy. [facility] follow up with your pmd. return with any concerns Departure Forms: Customer Survey General Discharge Information ([place] SUE,Rickey) Departure Prescriptions: Current Visit Scripts Codeine Phosphate/Guaifenesi (Guaifen-Codeine 100-10 MG/5 Ml) 5-10 ML PO Q6HR PRN COUGH #120 ML Methylprednisolone. (Medrol) 1 DP PO AD #1 DP 6 on day 1 then reduce by one tablet daily until gone Azithromycin (Zithromax) 1 DP PO AD #6 TAB 2 the first day followed by 1 for days 2-5 Risperidone (Risperdal) 1 TAB PO DAILY #14 TAB Albuterol Sulfate (Proair Hfa) 2 PUF INH Q4-6 PRN PRN ASTHMA #1 INHAL PA/RN SURGERY ICU Co-Sign Statement Statement: ED Attending supervision documentation- [] I saw and evaluated the patient. I have also reviewed all the pertinent lab results and diagnostic results. I agree with the findings and the plan of care as documented in the PA's/RN SURGERY ICU's documentation. [X] I have reviewed the ED Record and agree with the PA's/RN SURGERY ICU's documentation. [] Additions or exceptions (if any) to the PAs/RN SURGERY ICU's note and plan are summarized below: [] (Court MONTOYA,Mick Don)
--- NOTE | 2017-09-25 10:12 | RADIOLOGY REPORT ---
EXAMINATION: XR CHEST CLINICAL INFORMATION: Cough, fever COMPARISON: 08/27/2017 TECHNIQUE: 2 views of the chest were obtained. FINDINGS: Lungs are clear. No focal consolidation or mass. Normal pulmonary vascularity. No pleural effusion or pneumothorax. Normal heart size. There are multilevel degenerative changes of the thoracic spine IMPRESSION: No acute pulmonary disease.
[2017-09-25] MEDS ORDERED: GUAIFEN-CODEIN118 M1 PO (10:17)
[2017-09-25] MEDS ORDERED: ZITHROMAX250 M2 PO (10:17)
[2017-09-25] MEDS ORDERED: MEDROL4 M2 PO (10:17)
[2017-09-25 10:27] VITALS: BP 136/81
[2017-09-25] MEDS ORDERED: PROAIR HFA8.5 GM INH (11:24)
[2017-09-25] MEDS ORDERED: RISPERDAL1 M1 PO (11:24)
== END 2017-09-25 10:28 ==
LOC: ERH 08:42
DX: J40 Bronchitis, not specified as acute or chronic (principal); Z72.0 Tobacco use
CPT/HCPCS: 71046; 87804; 87804-59

== ENCOUNTER 2017-09-28 07:25 | Emergency (ER) | payer OTHER ==
[~2017-09-28] VITALS: Ht 170.2 cm; Wt 117.9 kg
[~2017-09-28 07:25] MED LIST changes: +GUAIFEN-CODEIN118 M1 PO; +MEDROL4 M2 PO; +RISPERDAL1 M1 PO; +ZITHROMAX250 M2 PO
[2017-09-28 07:39] VITALS: BP 148/77
[2017-09-28] MEDS ORDERED: NEXIUM40 M1 PO (07:51)
[2017-09-28] MEDS ORDERED: IMODIUM A-D2 M2 PO (07:51)
--- NOTE | 2017-09-28 07:51 | ED GENERAL ADULT ---
History of Present Illness General Chief Complaint: General Adult Stated Complaint: PER PT HIGH BLOOD SUGAR Source: patient, old records Exam Limitations: no limitations Vital Signs & Intake/Output Vital Signs & Intake/Output Vital Signs Date Time Temp Pulse Resp B/P B/P Pulse O2 O2 Flow FiO2 Mean Ox Delivery Rate 09/28 0739 89 148/77 Allergies Coded Allergies: No Known Drug Allergies (NKDA 08/27/17) Reconcile Medications Albuterol Sulfate (Ventolin Hfa) 90 MCG HFA.AER.AD 2 PUF INH Q4-6 PRN PRN ASTHMA Albuterol Sulfate (Proair Hfa) 90 MCG HFA.AER.AD 2 PUF INH Q4-6 PRN PRN ASTHMA Apixaban (Eliquis) 5 MG TABLET 1 TAB PO BID blood thinner Apixaban (Eliquis) 2.5 MG TABLET 2 TAB PO BID pe Azithromycin (Zithromax) 250 MG TABLET 1 DP PO AD BRONCHITIS 2 the first day followed by 1 for days 2-5 Buprenorphine HCl/Naloxone HCl (Suboxone 12 MG-3 MG Sl Film) 12 MG-3 MG FILM 1 STR SL 4XDAILY CHRONIC PAIN/SUBSTANCE ABUSE (Reported) Codeine Phosphate/Guaifenesi (Guaifen-Codeine 100-10 MG/5 Ml) 10 MG-100 MG/5 ML LIQUID 5-10 ML PO Q6HR PRN COUGH Duloxetine Hydrochloride (Cymbalta) 30 MG CAPSULE.DR 1 CAP PO DAILY DEPRESSION (Reported) Duloxetine Hydrochloride (Cymbalta) 30 MG CAPSULE.DR 1 CAP PO DAILY depression /pain Esomeprazole (Nexium) 40 MG CAPSULE.DR 1 CAP PO DAILY GI (Reported) Esomeprazole (Nexium) 40 MG CAPSULE.DR 1 CAP PO DAILY stomach burning Esomeprazole (Nexium) 40 MG CAPSULE.DR 1 CAP PO DAILY GASTRITIS Furosemide 20 MG TABLET 2 TAB PO DAILY WATER PILL (Reported) Furosemide (Lasix) 20 MG TABLET 2 TAB PO DAILY water retention Gabapentin 400 MG CAPSULE 2 CAP PO QPM NERVE PAIN (Reported) Gabapentin 400 MG CAPSULE 1 CAP PO TID nerve pain Gabapentin 400 MG CAPSULE 1 CAP PO TID NEUROPATHY Loperamide HCl (Imodium A-D) 2 MG CAPSULE 1 TAB PO BID PRN DIARRHEA Metformin HCl (Glucophage) 1,000 MG TABLET 1 TAB PO BID DIABETES (Reported) Metformin HCl 1,000 MG TABLET 1 TAB PO BID diabetes Methylprednisolone. (Medrol) 4 MG TAB.DS.PK 1 DP PO AD BRONCHITIS 6 on day 1 then reduce by one tablet daily until gone Multivitamin (Multi-Day Vitamins) 1 EACH TABLET 1 TAB PO DAILY SUPPLEMENT ( Reported) Ondansetron (Zofran Odt) 4 MG TAB.RAPDIS 1 TAB SL TID PRN nausea Ondansetron HCl (Zofran) 8 MG TABLET 1 TAB PO TID PRN N/V (Reported) Promethazine HCl 25 MG TABLET 1 TAB PO Q6P PRN nausea Risperidone (Risperdal) 0.25 MG TABLET 1 TAB PO BID MENTAL HEALTH (Reported) Risperidone (Risperdal) 1 MG TABLET 1 TAB PO DAILY MENTAL HEALTH Sucralfate (Carafate) 1 GRAM TABLET 1 TAB PO 4 TIMES/DAY abdominal pain Triage Note: PT TO ED FOR "HIGH BLOOD SUGAR" REPORTING HE DID NOT TAKE HIS SUGAR AT HOME BUT "FEELS" LIKE ITS HIGH, BG 215 IN TRIAGE, PT REFUSING TO TAKE OFF ANY OUTERWEAR FOR VITALS. ONLY ALLOWING BP TO BE TAKEN ON LOWER FOREARM AREA Triage Nurses Notes Reviewed? yes HPI: Patient started on a Medrol Dosepak yesterday for an URI. Patient saw his therapist who did a fingerstick and it was 451. Patient did not take the steroids this morning but decided to come in for evaluation. His fingerstick was 215. Patient also states that he has been having intermittent diarrhea. There are no fevers or chills. He denies any abdominal pain. There is no nausea or vomiting. Past History Travel History Traveled to [place] past 21 day No Medical History Any Pertinent Medical History? 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 Mood disorder. Currently on Suboxone. Suicide attempts. Psychosis History of MRSA: Yes History of VRE: No History of CDIFF: No Tetanus Vaccine: 06/11/12 Surgical History Surgical History: non-contributory Psychosocial History Who do you live with Other (see notes) What is your primary language [place] Tobacco Use: Current Daily Use Daily Tobacco Use Amount/Type: => 5 Cigarettes daily ETOH Use: occasional use Illicit Drug Use: marijuana Family History Family History, If Any: Relation not specified for: Psychiatric disorder Hx Contributory? No Review of Systems Review of Systems Constitutional: Reports: no symptoms. Respiratory: Reports: see HPI, cough. GI: Reports: see HPI, diarrhea. Neurological/Psychological: Reports: no symptoms. Immunologic/Allergic: Reports: no symptoms. Physical Exam Physical Exam General Appearance: well developed/nourished, alert, awake Head: atraumatic Eyes: Bilateral: PERRL, EOMI. Ears, Nose, Throat: normal pharynx, normal ENT inspection, hearing grossly normal, MOIST [place] Respiratory: normal breath sounds, chest non-tender, no respiratory distress, lungs clear Cardiovascular: regular rate/rhythm, normal peripheral pulses Neurologic/Psych: no motor/sensory deficits, awake, alert, oriented x 3, normal gait, normal mood/affect Core Measures ACS in differential dx? No CVA/TIA Diagnosis: No Sepsis Present: No Sepsis Focused Exam Completed? No Progress Differential Diagnoses I considered the following diagnoses in my evaluation of the patient: [STEROID INDUCED HYPERGLYCEMIA] Plan of Care: STOP MEDROL Initial ED EKG: none Departure Departure Disposition: HOME OR SELF CARE Condition: Stable Clinical Impression Primary Impression: Hyperglycemia Secondary Impressions: Diarrhea Referrals: Ortiz Andersen MD (PCP/Family) Additional Instructions: STOP THE MEDROL DOSE PACK RETURNIF SYMPTOMS WORSEN OR FOR ANY CONCERNS Departure Forms: Customer Survey General Discharge Information Prescriptions: Current Visit Scripts Esomeprazole (Nexium) 1 CAP PO DAILY #30 CAP Loperamide HCl (Imodium A-D) 1 TAB PO BID PRN DIARRHEA #20 TAB Critical Care Note Critical Care Note Critical Care Time: non-applicable
== END 2017-09-28 07:54 ==
LOC: ERH 07:25
DX: E11.65 Type 2 diabetes mellitus with hyperglycemia (principal); R19.7 Diarrhea, unspecified; Z79.84 Long term (current) use of oral hypoglycemic drugs

== ENCOUNTER 2017-11-21 20:36 | Inpatient (IN) | payer OTHER ==
[~2017-11-21] VITALS: Ht 170.2 cm; Wt 117.3 kg
[~2017-11-21 20:36] MED LIST changes: +IMODIUM A-D2 M2 PO
--- NOTE | 2017-11-21 22:22 | ED PSYCHIATRIC COMPLAINT ---
See Addendum History of Present Illness General Chief Complaint: Psychiatric Related Complaint Stated Complaint: "I FEEL LIKE PEOPLE ARE AFTER ME" Source: patient, old records Exam Limitations: no limitations Vital Signs & Intake/Output Vital Signs & Intake/Output Vital Signs Date Time Temp Pulse Resp B/P B/P Pulse O2 O2 Flow FiO2 Mean Ox Delivery Rate 11/22 0743 98.1 78 20 102/56 99 Room Air 11/21 2231 97.4 87 18 121/84 94 Room Air 11/21 2227 Room Air 11/21 2048 96.2 86 17 98/62 98 Room Air ED Intake and Output 11/22 0000 11/21 1200 Intake Total Output Total Balance Patient 265 lb Weight Weight Reported by Patient Measurement Method Allergies Coded Allergies: No Known Drug Allergies (NKDA 08/27/17) Reconcile Medications Albuterol Sulfate (Ventolin Hfa) 90 MCG HFA.AER.AD 2 PUF INH Q4-6 PRN PRN ASTHMA Albuterol Sulfate (Proair Hfa) 90 MCG HFA.AER.AD 2 PUF INH Q4-6 PRN PRN ASTHMA Apixaban (Eliquis) 5 MG TABLET 1 TAB PO BID blood thinner Apixaban (Eliquis) 2.5 MG TABLET 2 TAB PO BID pe Azithromycin (Zithromax) 250 MG TABLET 1 DP PO AD BRONCHITIS 2 the first day followed by 1 for days 2-5 Buprenorphine HCl/Naloxone HCl (Suboxone 12 MG-3 MG Sl Film) 12 MG-3 MG FILM 1 STR SL 4XDAILY CHRONIC PAIN/SUBSTANCE ABUSE (Reported) Codeine Phosphate/Guaifenesi (Guaifen-Codeine 100-10 MG/5 Ml) 10 MG-100 MG/5 ML LIQUID 5-10 ML PO Q6HR PRN COUGH Duloxetine Hydrochloride (Cymbalta) 30 MG CAPSULE.DR 1 CAP PO DAILY DEPRESSION (Reported) Duloxetine Hydrochloride (Cymbalta) 30 MG CAPSULE.DR 1 CAP PO DAILY depression /pain Esomeprazole (Nexium) 40 MG CAPSULE.DR 1 CAP PO DAILY GI (Reported) Esomeprazole (Nexium) 40 MG CAPSULE.DR 1 CAP PO DAILY stomach burning Esomeprazole (Nexium) 40 MG CAPSULE.DR 1 CAP PO DAILY GASTRITIS Furosemide 20 MG TABLET 2 TAB PO DAILY WATER PILL (Reported) Furosemide (Lasix) 20 MG TABLET 2 TAB PO DAILY water retention Gabapentin 400 MG CAPSULE 2 CAP PO QPM NERVE PAIN (Reported) Gabapentin 400 MG CAPSULE 1 CAP PO TID nerve pain Gabapentin 400 MG CAPSULE 1 CAP PO TID NEUROPATHY Loperamide HCl (Imodium A-D) 2 MG CAPSULE 1 TAB PO BID PRN DIARRHEA Metformin HCl (Glucophage) 1,000 MG TABLET 1 TAB PO BID DIABETES (Reported) Metformin HCl 1,000 MG TABLET 1 TAB PO BID diabetes Methylprednisolone. (Medrol) 4 MG TAB.DS.PK 1 DP PO AD BRONCHITIS 6 on day 1 then reduce by one tablet daily until gone Multivitamin (Multi-Day Vitamins) 1 EACH TABLET 1 TAB PO DAILY SUPPLEMENT ( Reported) Ondansetron (Zofran Odt) 4 MG TAB.RAPDIS 1 TAB SL TID PRN nausea Ondansetron HCl (Zofran) 8 MG TABLET 1 TAB PO TID PRN N/V (Reported) Promethazine HCl 25 MG TABLET 1 TAB PO Q6P PRN nausea Risperidone (Risperdal) 0.25 MG TABLET 1 TAB PO BID MENTAL HEALTH (Reported) Risperidone (Risperdal) 1 MG TABLET 1 TAB PO DAILY MENTAL HEALTH Sucralfate (Carafate) 1 GRAM TABLET 1 TAB PO 4 TIMES/DAY abdominal pain Triage Note: "I'D LIKE A VOLUNTARY PSYCH ADMISSION TO GET MY MEDICATIONS STRAIGHTENED OUT." REPORTS PARANOIA AND "A BUNCH OF STUFF GOING ON IN MY HEAD." +SI, SORIN. Triage Nurses Notes Reviewed? yes Onset: Just prior to arrival Duration: hour(s):, constant, continues in ED Timing: recent history Severity: severe Associated Symptoms: anxiety, impaired concentration, insomnia, suicidal ideation HPI: Prior to admission patient complained of not feeling safe with with paranoia of people following him and auditory hallucination telling him to kill himself. He also performed multiple linear superficial lacerations to bilateral forearms with a sharp piece of metal. He denies fever chills nausea vomiting diarrhea abdominal pain chest pain shortness breath headache dysuria rash bleeding homicidal ideation. (Erica MONTOYA,Ed) Past History Travel History Traveled to [place] past 21 day No Medical History Any Pertinent Medical History? 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 Mood disorder. Currently on Suboxone. Suicide attempts. Psychosis History of MRSA: Yes History of VRE: No History of CDIFF: No Tetanus Vaccine: 06/11/12 Surgical History Surgical History: non-contributory Psychosocial History Who do you live with Other (see notes) What is your primary language Kazakh Tobacco Use: Current Not Daily Family History Family History, If Any: Relation not specified for: Psychiatric disorder Hx Contributory? No (Ed Boswell MD) Review of Systems Review of Systems Constitutional: Reports: no symptoms. EENTM: Reports: no symptoms. Respiratory: Reports: no symptoms. Cardiovascular: Reports: no symptoms. GI: Reports: no symptoms. Genitourinary: Reports: no symptoms. Musculoskeletal: Reports: no symptoms. Skin: Reports: no symptoms. Neurological/Psychological: Reports: see HPI, anxiety, confusion, depressed. Hematologic/Endocrine: Reports: no symptoms. Immunologic/Allergic: Reports: no symptoms. All Other Systems: Reviewed and Negative (Ed Boswell MD) Physical Exam Physical Exam General Appearance: well developed/nourished, alert, awake, anxious, mild distress, obese Head: atraumatic, normal appearance Eyes: Bilateral: normal appearance, PERRL, EOMI. 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 yes 1 Age <19 or >45 years? yes 1 Depression/Hopelessness? yes 2 Previous Attempts/Psych Care yes 1 Rational Thinking Loss? yes 2 Single//? yes 1 Social Support? has no support 1 Stated Future Intent? yes 2 Total 11 SAD PERSONS Done? yes (Erica MONTOYA,Ed) Progress Differential Diagnosis: drug intoxication, drug overdose, drug withdrawal, electrolyte abnormality, hypoglycemia Plan of Care: Orders Procedure Date/time Status Continuous Observation Monitor 11/22 0700 Active Add-on Test (ER Only) 11/22 0035 Active Consistent Carbohydrate 2 11/21 D Active URINALYSIS 11/21 2357 Complete URINE DRUG SCREEN FOR ER ONLY 11/22 2143 Complete TSH REFLEX 11/22 2143 Complete ETHANOL 11/22 2143 Complete COMPREHENSIVE METABOLIC PANEL 11/22 2143 Complete CBC WITHOUT DIFFERENTIAL 11/22 2143 Complete ED CRISIS PSYCH CONSULT 11/22 2143 Active Current Medications Sig/Rodrigo Start time Last Medication Dose Stop Time Status Admin Risperidone 1 MG DAILY 11/22 0900 UNVr (Risperidone) Sucralfate 1,000 MG 4 TIMES/DAY 11/21 2357 UNVr 11/22 (Carafate) 0010 Gabapentin 400 MG TID 11/21 2356 UNVr 11/22 (Neurontin) 0010 Metformin HCl 1,000 MG BID 11/21 2356 UNVr 11/22 (Glucophage) 0010 Albuterol Sulfate 2 PUF Q4-6 PRN PRN 11/21 2344 UNVr (Ventolin) Laboratory Tests 11/21/172357: Urine Opiates Screen < 100, Methadone Screen 49, Barbiturate Screen < 60, Ur Phencyclidine Scrn < 6.00, Amphetamines Screen < 100, U Benzodiazepines Scrn < 85, Urine Cocaine Screen > 1000 H, Urine Cannabis Screen < 5.00, Urine Color YEL, Urine Clarity CLEAR, Urine pH 6.0, Ur Specific [place] 1.010, Urine Protein NEG, Urine Ketones NEG, Urine Nitrite NEG, Urine Bilirubin NEG, Urine Urobilinogen 0.2, Ur Leukocyte Esterase NEG, Ur Microscopic EXAM NOT REQUIRED, Urine Hemoglobin NEG, Urine Glucose NEG 11/21/172234: Anion Gap 11, Estimated GFR > 60, BUN/Creatinine Ratio 18.8, Glucose 224 H, Calcium 9.3, Total Bilirubin 0.5, AST 19, ALT 28, Alkaline Phosphatase 68, Total Protein 7.5, Albumin 4.1, Globulin 3.4, Albumin/Globulin Ratio 1.2, TSH &T3 & Free T4 Intrp 3.090, CBC w Diff NO MAN DIFF REQ, RBC 4.55 L, MCV 87.5, MCH 28.8 , MCHC 33.0, RDW 13.1, MPV 8.8, Gran % 60.0, Lymphocytes % 22.3, Monocytes % 14.4 H, Eosinophils % 2.8, Basophils % 0.5, Absolute Granulocytes 11.7 H, Absolute Lymphocytes 4.3 H, Absolute Monocytes 2.8 H, Absolute Eosinophils 0.5 , Absolute Basophils 0.1, Serum Alcohol < 10.0 Hand-Off Endorsed To: Navya MONTOYA,Ishan Orozco Endorsed Time: 0700 Pending: consult (Erica MONTOYA,Ed) Comments: 11/22/2017 7:17:58 AM patient signed out to 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 Crisis evaluation pending. (Navya MONTOYA,Ishan Orozco) Departure Departure Disposition: STILL A PATIENT Condition: Stable Clinical Impression Primary Impression: Bipolar disorder with psychotic features Secondary Impressions: Cocaine abuse, Deliberate self-cutting, Leukocytosis, Suicidal ideation Referrals: Ortiz Andersen MD (PCP/Family) Departure Forms: Customer Survey General Discharge Information (Ed Boswell MD)
[2017-11-21 22:45] LABS: ABSOLUTE BASOPHIL COUNT 0.1 /CUMM (0.0-0.2); ABSOLUTE EOSINOPHIL COUNT 0.5 /CUMM (0.0-0.7); ABSOLUTE GRANULOCYTE CT 11.7 /CUMM (1.4-6.5); ABSOLUTE LYMPH COUNT 4.3 /CUMM (1.2-3.4); ABSOLUTE MONOCYTE COUNT 2.8 /CUMM (0.10-0.60); BASOPHIL % 0.5 % (0.0-2.0); EOSINOPHIL % 2.8 % (0-5); HEMATOCRIT 39.8 % (42-52); MEAN CORPUSCULAR HGB 28.8 PG (27.0-31.0); MEAN CORPUSCULAR VOLUME 87.5 FL (80.0-94.0); MEAN PLATELET VOLUME 8.8 FL (7.4-10.4); PLATELET COUNT 311 /CUMM (130-400); RBC DISTRIBUTION WIDTH 13.1 % (11.5-14.5); RED BLOOD CELL CT 4.55 /CUMM (4.70-6.10); WHITE BLOOD CELL COUNT 19.5 /CUMM (4.8-10.8)
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
[2017-11-22 17:08] VITALS: BP 118/59
[2017-11-22 19:36] VITALS: BP 112/60
--- NOTE | 2017-11-22 22:09 | History & Physical ---
General Information and HPI MD Statement: I have seen and personally examined GREG FRIEDMAN and documented this H&P. The patient is a 37 year old M who presented with a patient stated chief complaint of Medical evaluation. Source of Information: patient Exam Limitations: no limitations History of Present Illness: 37 Y O M with PMHx DM, HTN, Chronic back pain, leg edema, Substance abuse, PE ( september 2016), Anxiety/ Depression/ Psychosis came to ER for Paranoia, anxiety, hallucinations. He has bilateral superficial incision, self inflicted wounds. He complains of Right sided chest pain radiating upwards, associated with palpitations, on and off, aggravated by Albuterol inhalation. He denied N / V/ diaphoresis, pleuritic nature of pain. Started this evening. Used cocaine 2 days back. He also developed cold/ congestion while in ER and now complains of Bilateral Ear pain, swollen glands in neck and pain and mild productive cough with yellow colored sputum. He also complains of right thing pain and tingling numbness, and feels weak. Denied dizziness, LOC, N/ V/ D/ Abdominal pain / UTI symptoms. His main concern is recurrence of Clot in his thigh and Lungs (he is compliant with eliquis) Allergies/Medications Allergies: Coded Allergies: No Known Drug Allergies (NKDA 08/27/17) Home Med list Albuterol Sulfate (Ventolin Hfa) 90 MCG HFA.AER.AD 2 PUF INH Q4-6 PRN PRN ASTHMA Albuterol Sulfate (Proair Hfa) 90 MCG HFA.AER.AD 2 PUF INH Q4-6 PRN PRN ASTHMA Apixaban (Eliquis) 5 MG TABLET 1 TAB PO BID blood thinner Apixaban (Eliquis) 2.5 MG TABLET 2 TAB PO BID pe Azithromycin (Zithromax) 250 MG TABLET 1 DP PO AD BRONCHITIS 2 the first day followed by 1 for days 2-5 Buprenorphine HCl/Naloxone HCl (Suboxone 12 MG-3 MG Sl Film) 12 MG-3 MG FILM 1 STR SL 4XDAILY CHRONIC PAIN/SUBSTANCE ABUSE (Reported) Codeine Phosphate/Guaifenesi (Guaifen-Codeine 100-10 MG/5 Ml) 10 MG-100 MG/5 ML LIQUID 5-10 ML PO Q6HR PRN COUGH Duloxetine Hydrochloride (Cymbalta) 30 MG CAPSULE.DR 1 CAP PO DAILY DEPRESSION (Reported) Duloxetine Hydrochloride (Cymbalta) 30 MG CAPSULE.DR 1 CAP PO DAILY depression /pain Esomeprazole (Nexium) 40 MG CAPSULE.DR 1 CAP PO DAILY GI (Reported) Esomeprazole (Nexium) 40 MG CAPSULE.DR 1 CAP PO DAILY stomach burning Esomeprazole (Nexium) 40 MG CAPSULE.DR 1 CAP PO DAILY GASTRITIS Furosemide 20 MG TABLET 2 TAB PO DAILY WATER PILL (Reported) Furosemide (Lasix) 20 MG TABLET 2 TAB PO DAILY water retention Gabapentin 400 MG CAPSULE 2 CAP PO QPM NERVE PAIN (Reported) Gabapentin 400 MG CAPSULE 1 CAP PO TID nerve pain Gabapentin 400 MG CAPSULE 1 CAP PO TID NEUROPATHY Loperamide HCl (Imodium A-D) 2 MG CAPSULE 1 TAB PO BID PRN DIARRHEA Metformin HCl (Glucophage) 1,000 MG TABLET 1 TAB PO BID DIABETES (Reported) Metformin HCl 1,000 MG TABLET 1 TAB PO BID diabetes Methylprednisolone. (Medrol) 4 MG TAB.DS.PK 1 DP PO AD BRONCHITIS 6 on day 1 then reduce by one tablet daily until gone Multivitamin (Multi-Day Vitamins) 1 EACH TABLET 1 TAB PO DAILY SUPPLEMENT ( Reported) Ondansetron (Zofran Odt) 4 MG TAB.RAPDIS 1 TAB SL TID PRN nausea Ondansetron HCl (Zofran) 8 MG TABLET 1 TAB PO TID PRN N/V (Reported) Promethazine HCl 25 MG TABLET 1 TAB PO Q6P PRN nausea Risperidone (Risperdal) 0.25 MG TABLET 1 TAB PO BID MENTAL HEALTH (Reported) Risperidone (Risperdal) 1 MG TABLET 1 TAB PO DAILY MENTAL HEALTH Sucralfate (Carafate) 1 GRAM TABLET 1 TAB PO 4 TIMES/DAY abdominal pain Compliance With Home Meds: FAIR Past History Travel History Traveled to [place] past 21 day No Medical History Neurological: NONE EENT: NONE Cardiovascular: hypertension Respiratory: pulmonary embolism Gastrointestinal: GERD Hepatic: NONE Renal: NONE Musculoskeletal: chronic back pain Psychiatric: anxiety, bipolar disease, depression, schizophrenia, substance abuse, Intermittent explosive disorder Endocrine: diabetes Blood Disorders: DVT, PE Cancer(s): NONE ESTIMATOR JEWELRY/Reproductive: NONE Other Medical Hx: History of substance abuse. Mood disorder. Currently on Suboxone. Suicide attempts. Psychosis History of MRSA: Yes History of VRE: No History of CDIFF: No Isolation History: Standard Tetanus Vaccine: 06/11/12 Surgical History Surgical History: non-contributory ECHO Results (as available) Date of last Echo 10/14/16 EF% 55 Past Family/Social History Family History Relations & Conditions if any FATHER FH: heart disease Relation not specified for: Psychiatric disorder Psychosocial History Where do you live? Home Smoking Status: Current Everyday Smoker ETOH Use: occasional use Illicit Drug Use: cocaine Functional Ability ADLs Independent: dressing, eating, toileting, bathing. Ambulation: independent IADLs Independent: shopping, housework, finances, food prep, telephone, transportation , medication admin. Review of Systems Review of Systems Constitutional: Reports: no symptoms. Exam & Diagnostic Data Last 24 Hrs of Vital Signs/I&O Vital Signs Date Time Temp Pulse Resp B/P B/P Pulse O2 O2 Flow FiO2 Mean Ox Delivery Rate 11/22 1936 98.9 80 112/60 11/22 1708 99.1 74 118/59 11/22 1652 104/68 11/22 1606 98.4 74 20 110/60 96 Room Air 11/22 1310 98.3 76 20 104/50 96 Room Air 11/22 1103 98.2 83 20 106/66 96 Room Air 11/22 0743 98.1 78 20 102/56 99 Room Air Intake & Output 11/22 0000 04 0800 11/22 1600 Intake Total 240 Output Total Balance 240 Intake, Oral 240 Patient 120.202 kg Weight Weight Reported by Patient Measurement Method Physical Exam General Appearance Alert, Oriented X3, Cooperative, No Acute Distress Skin No Rashes, multiple incision duvall : forearms, thighs, no e/o infection HEENT Atraumatic, PERRLA, EOMI, Mucous Membr. moist/pink, Nasal congestion. Ear exam : normal bilateral Neck Supple, No JVD, No thryomegaly, +2 Carotid Pulse wo Bruit Lymphatic Cx LN Cardiovascular Regular Rate, Normal S1, Normal S2, No Murmurs Lungs Clear to Auscultation, Normal Air Movement Abdomen Normal Bowel Sounds, Soft, No Tenderness Neurological Exam Findings: Normal Gait, Normal Speech, Strength at 5/5 X4 Ext, Normal Tone, Sensation Intact, Cranial Nerves 3-12 NL, Reflexes 2+ Cranial Nerves II through XII: 3 to 12 intact Extremities No Clubbing, No Cyanosis, trace leg edema Vascular Normal Pulses, Pulses Symmetrical Body Front and Back (Adult) 1) incision duvall 2) incision duvall 3) incisions Diagnostic Data CXR Results reviewed Assessment/Plan Assessment: # chest pain : atypical, ECG reviewed : unremarkable # Ear pain : secondary to URI : continue antihistamine # Right Thigh pain : exam unremarkable for any neurologic weakness # Multiple incision wounds : keep wounds clean. Tetanus toxoid IM (last dose may 2012) # DM : continue Metformin # leg edema / HTN : continue Lasix # Hx PE : continue Eliquis # paranoid behavious : agree with psych plan As Ranked By This Provider Problem List: 1. Upper respiratory infection 2. Non-insulin dependent type 2 diabetes mellitus 3. Auditory hallucination 4. Chest pain 5. Cocaine abuse 6. Pulmonary embolus 7. Incised wound Miscellaneous Miscellaneous Documentation Attending Case Discussed With: Jacky Jc MD Primary Care Physician: Ortiz Andersen MD Patient sees these Specialists unknown Level of Patient Care: OFELIA Yen Attending MD Review Statement Attending Statement Attending MD Statement: I interviewed and noted H and P
--- NOTE | 2017-11-23 00:32 | Admission Certification ---
Admission Certification Certification Statement - As attending physician, I certify that at the time of - admission, based on clinical presentation, severity of - symptoms, need for further diagnostic testing and - therapeutic interventions, and risk of adverse outcomes - without in-hospital treatment, in my clinical assessment, - this patient requires an acute hospital stay for a minimum - of two nights or longer. I have also considered psychsocial - factors such as support system, advanced age, financial - issues, cognitive issues, and failed out-patient treatments, - past re-admission history, safety of patient, and lack of - compliance as applicable. Specific rationale supporting this admission is: Paranoid, SI
[2017-11-23 08:10] VITALS: BP 121/70
[2017-11-23 12:11] VITALS: BP 112/67
--- NOTE | 2017-11-23 16:26 | CPS PROVIDER INIT ASMT PSYCH ---
Psychiatric Admission Lock Tender's Note Reviewed: Yes Patient Seen and Examined: Yes Identifying Information: 37 yo single male with hx psychosis and mood disorder, on Suboxone, admitted on 11/22/17. Chief Complaint: SI to overdose on his medications. Cut forearms superficially. AHs. Reaction to Hospitalization: "I just want to get my medication adjusted." History of Present Illness Onset of Illness: Was off Risperdal 2-3 days. Case was closed at [facility]. Cymbalta was recently Rx'd, but pt wasn't taking it. Had not started lithium. Circumstances Leading to Admission: SI, AH. Drug screen +cocaine. On probation for burglary. Problem(s) Justifying Need for Admission: SI AHs PI Other HPI: Patient complains of nasal congestion. Reports he is here with suicidal ideation and paranoia. States that there is just too much going on. Did not have Risperdal. Got a refill from another doctor but could not fill it because of he didn't have his ID. Started cutting himself up a couple of days ago so he used cocaine to stop cutting. He walked to the ER. Reports he was off medications for 2 days. States he did not sleep last night. He attributes this to his nose being clogged. Appetite: affected by nausea. Energy: low. Case discussed with nurse. Nurse reports that the patient is denying suicidal ideation. Bizarre. Questions everything. Irritable. Appears disheveled and disorganized. Has superficial cuts. Patient will receive tetanus shot. He is on probation. Complained of chest pain but there were no EKG changes. Past Psychiatric History Past Diagnosis(es)- if any: Unclear. Past Precipitating Factors- if any: Unknown. - Include inpatient and outpatient treatment Treatment History: Not currently in outpatient treatment. Went to [facility] in the past and saw Monse Delgado APRN. Patient would like to see Dr. Myrick at [facility]. Inpatient at [facility] and [facility]. Has also been at [facility] in 2004 or 2007, [facility], [facility], [facility] and [facility]. Past treatment at [facility]. History of Suicide Attempts or Gestures History of a couple of suicide attempts but is guarded as to details stating "it 's too stressful." Substance Abuse History: Tobacco at 1-2 packs per day. Alcohol 1-2 beers. Cannabis: denied. Cocaine $40 one day this week, smoked. Denies opiates. Allergies: Coded Allergies: azithromycin (UNKNOWN 11/23/17) chlorpromazine (From THORAZINE) (UNKNOWN 11/23/17) haloperidol (From HALDOL) (UNKNOWN 11/23/17) trazodone (UNKNOWN 11/23/17) Home Med List: Eliquis 5 mg twice daily Suboxone 06/23 4 times a day Cymbalta 30 mg daily Nexium 40 mg daily Lasix 20 mg twice daily ? Neurontin Metformin 1000 mg twice daily Multivitamin daily Risperdal dose unclear, perhaps 0.5 mg daily and 1 mg at night Sucralfate 1 g 3 times daily Albuterol as needed - Include any medical condition(s) that may - impact the patient's recovery/remission Past Medical History: Obese. Nasal congestion. Complains of pain at shoulder from tetanus shot. Superficial vertical linear cuts on both forearms. Numbness right thigh. Past History Medical History Neurological: NONE EENT: NONE Cardiovascular: hypertension Respiratory: pulmonary embolism Gastrointestinal: GERD Hepatic: NONE Renal: NONE Musculoskeletal: chronic back pain Psychiatric: anxiety, bipolar disease, depression, schizophrenia, substance abuse, Intermittent explosive disorder Endocrine: diabetes Blood Disorders: DVT, PE Cancer(s): NONE PLAY READER/Reproductive: NONE Other Medical Hx: History of substance abuse. Mood disorder. Currently on Suboxone. Suicide attempts. Psychosis History of MRSA: Yes History of VRE: No History of CDIFF: No Isolation History: Standard Tetanus Vaccine: 11/23/17 Surgical History Surgical History: none Psychiatric Family/Social Hx Family History Psychiatric Illness: Mother was on Depakote. Father was on Risperdal and possibly Zoloft. Substance Use: Mother and father both used heroin and alcohol. Suicides: A paternal uncle suicided. Social History Living Situation: Homeless. Was staying in a van. Significant Relationships (family/friends): Aunt Priyanka, who lives in [place]. Mother in 2003. Father in 2010. Patient has an older brother. Patient has a daughter, age 4, but no contact with her. Education: Unknown. Vocation/Occupation: Unknown. Legal: On probation for burglary. Incarcerated twice for charges related to burglary, larceny and possession of narcotics. Healthly Behaviors Screening Tobacco Screening Tobacco Use from ED Docu: Current Not Daily - If tobacco counseling indicated - the following topics are required. - #1 Recognizing dangerous situations. - #2 Coping Skills. - #3 Basic information about quitting. Status of Tobacco Cessation Counseling: #1, #2 AND #3 Completed Cessation Med Status Nicotine Gum Ordered Alcohol Screening - ETOH screen POS if BAL >=80 or Audit-C>= M4/F3 Audit-C Score from Diag Assess: 2 Blood Alcohol Level: Laboratory Tests 11/21 2234 Toxicology Serum Alcohol (<10 MG/DL) < 10.0 Alcohol Use Screening Results: Neg per Audit C &/or BAL - If ETOH counseling indicated - the following topics are required. - #1 Express concern about the patient's - drinking at unhealthy levels, include informing - of national norms for moderate drinking: - men <= 14 drinks/week, max 4 drinks/occasion - women <= 7 drinks/week, max 3 drinks/occasion - #2 Providing feedback, including linking alcohol to - negative physical effects (liver injury, hypertension) - negative emotional effects (relationship problems and - depression) - negative occupational consequences (reduced work - performance) - #3 Advising the patient to abstain from alcohol or - to drink below national norms for moderate drinking - (as listed above). Status of ETOH Use Counseling: N/A B/C NO ETOH Use Metabolic Screening - Screen if on a Neuroleptic Medication - Metabolic screening should include: - Blood Pressure, BMI, Glucose or Hgb A1c, & a - Lipid profile from within the past 365 days. Metabolic Screening () Not Applicable, patient not on a neuroleptic. OR () Patient on a neuroleptic(s) . Enter below results for Hemoglobin A1C, and lipid panel if obtained during the last 365 days. BMI: 40.500 Blood Pressure: 112/67 Laboratory Results From [facility] (If applicable): [x] Lab Cholesterol 174 MG/DL 11/21/172234 Cholesterol/HDL Ratio 4 % 11/21/172234 HDL Cholesterol 40 mg/dL 11/21/172234 Hemoglobin A1c 8.9 % H 11/21/172234 LDL Cholesterol, Calc 107 mg/dL 11/21/172234 Triglycerides 138 mg/dL 11/21/172234 Exam and Plan Mental Status Examination Ambulation Status: Ambulatory. Appearance: Overweight male dressed in blue paper scrubs. Bearded. Has superficial vertical linear cuts on both forearms. Attitude towards examiner: Somewhat gamy. Psychomotor activity: There is no psychomotor agitation or retardation. Behavior: Unremarkable. Quality of speech: Normal in volume, rate and tone. Affect: Blunted. Mood: Reports mood is down. Rates sad mood 8/10 and anxiety 5/10. Feels hopeless and helpless. Feels worthless, stating "definitely, feel I can't get anything right." Feels guilty for not seeing his daughter. Suicidal Ideation: Reports suicidal ideation, wishing he could just disappear from the planet. Homicidal Ideation: Denies homicidal ideation. Hallucinations: Reports auditory hallucinations but he is guarded about details. Denies visual hallucinations. Paranoid/Delusional Material: Reports paranoia, that there are people in [place] who are after him, follow him. Regarding magical bermudez, he reports he hears people talking about him sometimes. Difficulties with thought organization: Thought processes are organized. Insight: Limited. Judgment: Poor. Orientation: Oriented to person and place. He believes it is October 2017. Cognition: Grossly intact. Memory Function: Grossly intact. Estimate of intellectual functioning: Average. Assets/Strengths Patient Identified Assets/Strengths: "Right now, I don't have any." Impression/Plan Impression and Plan: The patient is a 37-year-old male who was off his Risperdal for a couple of days. His drug screen was positive for cocaine. He is on probation. He is homeless. - Include all active medical diagnosis that require tx DSM 5 Diagnosis(es): Schizoaffective disorder, depressed type. Cocaine use disorder. Opiate use disorder on Suboxone. History of pulmonary embolism. History of DVT. Sinus congestion. Hypertension. GERD. Chronic back pain. Diabetes. - Initial Tx Plan for Active Psych & Medical Conditions Treatment Plan: The patient will be monitored on the unit for safety, psychosis and mood disorder. I reduce Suboxone dose to 24 mg of buprenorphine a day. This is the recommended maximum. Patient reportedly is upset about the reduction. Patient is requesting Sudafed for his nasal congestion but I am reluctant to order this, given his hypertension. I changed antihistamine from Claritin to prn Benadryl. I increased Risperdal dose to 2 mg twice daily but the patient expressed reluctance about this, fearing that he will have daytime sedation. Additional information is needed from collaterals. Anticipate once clinically stable, that the patient will be discharged to the community and be referred to [facility]. - Factors that would help patient function - in a less restrictive setting. Factors: Not suicidal. Decreased or no AHs. Decreased PI.
--- NOTE | 2017-11-23 18:00 | IP INCIDENTAL NOTE PSYCH ---
Incidental Note Notation: This technical writer attempted to interview pt to complete social history 11/23/17 @ 5: 45pm. He refused to participate as he reported "I don't want to answer questions ". Pt stated that he is angry because the doctor "stopped his back pain medication" and he reports he needs it to be able to function. Pt expressed that he cannot think and answer questions because of his back pain.
[2017-11-23 19:50] VITALS: BP 112/71
[2017-11-24 07:45] VITALS: BP 122/70
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
[2017-11-24 12:28] VITALS: BP 126/66
--- NOTE | 2017-11-24 15:58 | CP SOUTH PROGRESS NOTE PSYCH ---
Psych (Inpt) Progress Note Progress Note Include the following elements, when applicable: Involvement in the active treatment of the patient with behavioral observations of the patient and the patient's response to the treatment. Review of the ongoing treatment process in the context of the treatment plan. Indication of how multi-disciplinary staff members are carrying out the treatment plan. Plans for future interventions and recommendations for revision of the treatment plan. Liaison with other physicians/providers. Progress Note: Case discussed with nurse. Nurse reports that the patient used foul language yesterday. Slept well. Denying suicidal ideation. Did not cooperate with social work professor's intake. No evidence of psychosis. Complained of pain in his back. Upset that Suboxone dose was lowered. Initially refused medications and fingerstick but later cooperated. Patient seen at 9:26 AM with nurse. Patient reports nasal congestion. Reports he had very poor sleep due to left thigh pain. Reports sciatica due to disc disease from a slip and fall. We will request consultation from hospitalist. Patient seems sedated. Has poor eye contact. Voice is gravelly. Less irritable today. Mood is low. Rates sad/depressed mood 6/10 and anxiety 3/10. Denies feeling hopeless, worthless or guilty. He is not sure if feeling helpless. When asked about suicidal ideation, he responded "not really." Denies homicidal ideation. When asked about auditory hallucinations, he responded that he was not sure if he is hearing his own thoughts but AHs have decreased. Denies visual hallucinations. When asked if anyone is out to harm him, he responded "not yet." Appetite is okay. Energy is decreased. IMPRESSION: Slow progress. Continue present treatment plan. Because of sedation, we will now reduce Risperdal to 1 mg in the morning and 2 mg at bedtime. Patient is finding Benadryl ineffective for nasal congestion so we will resume Claritin 10 mg daily and I have ordered a one-time dose of Sudafed 30 mg. Patient wants to stay here longer to go on Cymbalta and lithium but I advised him that these types of medication changes can be done on an outpatient basis. I advised patient that we anticipate his discharge will be on Saturday.
[2017-11-24 16:01] VITALS: BP 109/56
[2017-11-25 08:00] VITALS: BP 129/70
[2017-11-25 12:28] VITALS: BP 103/63
[2017-11-25 15:48] VITALS: BP 128/70
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
--- NOTE | 2017-11-25 16:48 | SOCIAL WORKER PROG NOTE PSYCH ---
Social Work Progress Note Progress Note This proposal lead writer met with patient. Patient presented as very agitated stating that he came to the hospital to stabilize medications "for my Bipolar and Schizophrenia" and does not feel as though this is being done. Patient stated that he feels that people are after him. He stated that he would like to discharge and go to another hospital and has been told different discharge dates by Dr. Jc. Patient was not initially agreeable to authorizing this proposal lead writer to make any referrals to inpatient or outpatient treatment programs. He stated that he is currently homeless and will contact "some people" [facility] to ask about being able to stay with them. Patient stated that he will also call 211 to schedule a CAN assessment once he knows his discharge date. Patient promptly left this meeting and stated that he wanted to speak with Dr. Jc. Dr. Jc informed this proposal lead writer that the anticipated discharge date is tomorrow, 11/26/17. This proposal lead writer spoke with the patient regarding this. He was in agreement with signing CHELSEY's for [facility] in [place] ( patient refused a referral to [facility]). Patient stated that he did not want a referral to any outpatient programs/IOP as he was not sure where he would be staying. He stated that he would inform this proposal lead writer of where he would be staying after he has identified a place (patient stated that he is making these phone calls today).
--- NOTE | 2017-11-25 18:12 | SOCIAL WORKER PROG NOTE PSYCH ---
Social Work Progress Note Progress Note Faxed Clinical to: [facility] - waiting on Fax confirm (check SW fax)
--- NOTE | 2017-11-25 18:13 | SOCIAL WORKER PROG NOTE PSYCH ---
Social Work Progress Note Progress Note Concurrent authorization was requested on the [facility] online portal and is listed as "pended" Pended Authorization # [id number] Client Authorization #[id number] Type of Request CONCURRENT
[2017-11-25 20:07] VITALS: BP 105/53
[2017-11-26 07:47] VITALS: BP 117/64
[2017-11-26] MEDS ORDERED: ZOFRAN ODT4 M1 SL (10:37)
[2017-11-26] MEDS ORDERED: CARAFATE1 G1 PO (10:37)
[2017-11-26] MEDS ORDERED: NICORELIEF2 MG PO (10:37)
[2017-11-26] MEDS ORDERED: NEXIUM40 M1 PO (10:37)
[2017-11-26] MEDS ORDERED: LORATADINE10 M1 PO (10:37)
[2017-11-26] MEDS ORDERED: LITHIUM CARBON150 M1 PO (10:37)
[2017-11-26] MEDS ORDERED: RISPERDAL1 M1 PO (10:37)
[2017-11-26] MEDS ORDERED: ONE DAILY MULT1 EAC2 PO (10:37)
[2017-11-26] MEDS ORDERED: FUROSEMIDE20 M1 PO (10:37)
[2017-11-26] MEDS ORDERED: GABAPENTIN400 M2 PO (10:37)
[2017-11-26] MEDS ORDERED: ELIQUIS5 M1 PO (10:37)
[2017-11-26] MEDS ORDERED: METFORMIN HCL1000 M1 PO (10:37)
[2017-11-26] MEDS ORDERED: CYMBALTA30 M1 PO (10:37)
--- NOTE | 2017-11-26 10:46 | Patient Discharge Instructions ---
Psych Discharge Inst General Discharge Information Reason for Admission: SI to overdose on his medications. Cut forearms superficially. AHs. Psy Discharge Primary Diag+ Schizoaff d/o, depressed Psy Discharge Secondary Diag+ Cocaine use d/o Opiate use d/o on Suboxne Hx pulmonary embolism Hx of DVT Sinus congestion Hypertension GERD Chronic back pain Diabetes Summary Tests/Major Procedures Lab ALT 28 U/L 11/21/17 2235 AST 19 U/L 11/21/17 223 BUN 15 mg/dL 11/21/17 2235 Calcium 9.3 mg/dL 11/21/17 223 Carbon Dioxide 28 mmol/L 11/21/17 223 Chloride 99 mmol/L 11/21/17 223 Cholesterol 174 MG/DL 11/21/172234 Cholesterol/HDL Ratio 4 % 11/21/172234 Creatinine 0.8 mg/dL 11/21/172234 Estimated GFR > 60 ml/min 11/21/17 223 Glucose 224 mg/dL H 11/21/17 2235 HDL Cholesterol 40 mg/dL 11/21/17 223 Hemoglobin A1c 8.9 % H 11/21/17 223 LDL Cholesterol, Calc 107 mg/dL 11/21/172234 Potassium 4.9 mmol/L 11/21/172234 Sodium 137 mmol/L 11/21/172234 TSH &T3 &Free T4 Intrp 3.090 uIU/mL 11/21/17 223 Triglycerides 138 mg/dL 11/21/172234 Absolute Granulocytes 11.7 /CUMM H 11/21/17 223 Absolute Lymphocytes 4.3 /CUMM H 11/21/17 2235 Absolute Monocytes 2.8 /CUMM H 11/21/17 2235 Hct 39.8 % L 11/21/175 Hgb 13.1 G/DL L 11/21/17 2235 Monocytes % 14.4 % H 11/21/17 2235 Plt Count 311 /CUMM 11/21/17 2235 RBC 4.55 /CUMM L 11/21/17 2235 WBC 19.5 /CUMM H 11/21/17 2235 Buprenorphine & Metab POSITIVE 11/21/17 2358 Serum Alcohol < 10.0 MG/DL 11/21/17 2235 Urine Cocaine Screen > 1000 NG/ML H 05/03/18 2358 EKG 11/22/17 showed sinus rhythm @ 73, borderline inferior Q waves, borderline prolonged QT interval, no significant change since previous tracing. QT 448. QTc 494. Studies Pending at [place]: None. Patient Instructions Contact Information Your Psychiatrist on [facility] was Jacky Jc MD * If you are experiencing an emergency related to this hospitalization, please call [phone] to contact the treating psychiatrist or the psychiatrist-on- call. * To Request a copy of your medical records, please contact the Medical Records Department at [phone]. * To request results of studies pending at the time of discharge, please call [phone]. * Continue your Medications until directed to stop by your Healthcare provider. General Medication Information Please continue to take your new medications and your continued home medications , unless otherwise indicated on your discharge medication list, or unless directed by your MD or CLAIMS AGENT RIGHT OF WAY to stop them. Special Instructions Diet Diabetic Activity Normal Other Inst/Recommendations See PCP about med condx's, abnormal EKG and labs. Follow lithium levels! - Tobacco Use Treatment Offered Post DC Medications Offered: Script Given-See Med List Post DC Tobacco Treatment Plan: [facility] Program Appt Date: 12/04/17 Program Appt Time: 1600 - EtOH/Drug Use D/O Treatment Offered Post DC Medications Offered: Script Given-See Med List (On Suboxone (no Rx given )) Post DC EtOH/SubAbuse TX Plan: Other SubAbuse/Dual Pgm (TBA) Program Appt Date: 11/27/17 Program Appt Time: 0900 Metabolic Screening () Not Applicable, patient not on a neuroleptic. OR () Patient on a neuroleptic(s) . Enter below results for Hemoglobin A1C, and lipid panel if obtained during the last 365 days. BMI: 40.500 Blood Pressure: 117/64 Laboratory Results From [facility] (If applicable): [x] Lab Cholesterol 174 MG/DL 11/21/175 Cholesterol/HDL Ratio 4 % 11/21/172234 HDL Cholesterol 40 mg/dL 11/21/17 223 Hemoglobin A1c 8.9 % H 11/21/172234 LDL Cholesterol, Calc 107 mg/dL 11/21/172234 Triglycerides 138 mg/dL 11/21/172234 Advance Directives Does the Patient have Medical Advance Directives Yes/Copy on file Does Pt have Psychiatric Advance Directives? No/Refused further info Does Patient have a Designated Surrogate Decision Maker: No Information About Psychiatric Advance Directives Provided? Yes Discharge Plan Post Hospital Treatment Plan: Patient is homeless. boning room worker is offering recommendations about treatment and shelters. Please note that the combination of lithium and lasix can cause high lithium levels. Please have lithium levels monitored closely. Stay away from drugs and alcohol.
[2017-11-26 12:29] VITALS: BP 118/71
--- NOTE | 2017-11-26 15:29 | CP SOUTH PROGRESS NOTE PSYCH ---
Psych (Inpt) Progress Note Progress Note Include the following elements, when applicable: Involvement in the active treatment of the patient with behavioral observations of the patient and the patient's response to the treatment. Review of the ongoing treatment process in the context of the treatment plan. Indication of how multi-disciplinary staff members are carrying out the treatment plan. Plans for future interventions and recommendations for revision of the treatment plan. Liaison with other physicians/providers. Progress Note: Case and treatment plan discussed in team meeting. I observed the patient yesterday smiling and enjoying himself in a group. Staff reports that the patient refused his medications last night in hopes of prolonging his stay. Took medications this morning. He was resistant to a referral to [facility] and to [facility]. He refused to sign a release form for [facility]. Patient seen with nurse director, Nicole Limon RN, at 10:03 AM. Patient reports he has been staying in the room to himself. Reports his back was hurting so he did not get up last night for his medications. Reports auditory hallucinations. When I asked specifics, he was vague as to content. States he needs to go back to [place]. Complains that his legs are shaking at night. Affect is calm and blunted but also very argumentative. States mood is fine. Reports he had the feeling yesterday and earlier this morning about cutting himself. Denies homicidal ideation. Denies visual hallucinations. Feels paranoid of people in [place]. IMPRESSION: After observing and treating this patient for several days, I believe that the patient has achieved maximum hospital benefit. I believe he displays of the signs of malingering. After thorough assessment, I do not believe that the patient poses a credible risk for imminent danger to himself or others. He is not gravely disabled. He has made manipulative comments, such as "I will just come back to the emergency room." It would not surprise me if he were to make superficial cuts again as a gesture, but I do not believe that he poses a suicide risk at this time. We have given him information about housing and treatment options in the community.
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
--- NOTE | 2017-11-26 18:00 | SOCIAL WORKER PROG NOTE PSYCH ---
Social Work Progress Note Progress Note Patient reported thoughts of cutting. He denied HI. Per discussion in team this morning, patient will be discharged. This documentation writer met with patient to discuss discharge plans. He stated that he intends on scheduling an appointment with [facility] in [place] for behavioral health and addiction treatment, including medication management. Patient refused to sign an CHELSEY for [facility] or any other outpatient program as "I don't want my information all over the place because I dont' know where I'll be." He was provided with the number for [facility] as a referral was submitted yesterday. He was also provided with the number to [facility] and informed that a screening was completed today, though, no beds were available. He accepted resources (crisis numbers and warm line numbers) and stated that he would go to an ER if feeling unsafe. Patient was also informed of the smoking cessation group as well as services through [facility] should he wish to pursue outpatient treatment at [facility]. This documentation writer informed Gabrielle Ford of patient's refusal to have an appointment scheduled with an outpatient program. Patient Health Summary was faxed to [facility]. Faxed Referral(s) Referred To: [facility] Transition of Care Documents sent: Health Summary Faxed to: [facility] Fax #: [phone] Faxed by: Jose Richmond LCSW Date faxed: 11/26/17 Time Faxed: [phone] Comment: pages 17-19 faxed separately at [phone]
--- NOTE | 2017-11-27 18:22 | SOCIAL WORKER PROG NOTE PSYCH ---
Social Work Progress Note Progress Note Determination Status: DISCHARGE COMPLETED Thank you. You have completed your discharge for this episode of care. Member Name Member ID Member Subscriber Name Subscriber ID GREG FRIEDMAN [id number] 1980 GREG FARIASDRO [id number] Related Authorization # Related Client Authorization # Discharge # Discharge Date [id number] 11/26/2017 Level of Service Type of Service Level Of Care Type of Care IP - INPATIENT/HLOC P - MENTAL HEALTH I - INPATIENT CIP - INPATIENT HOSPITAL - INPATIENT HOSPITAL Provider Name & Address Provider ID Provider Alternate ID FELISHA CATHERINEO [id number] [address] [place] [phone]
[2018-01-28] MEDS ORDERED: PERPHENAZINE2 M1 PO (12:12)
[2018-01-28] MEDS ORDERED: BENZTROPINE ME0.5 M1 PO (12:12)
[2018-01-29] MEDS ORDERED: FUROSEMIDE20 M1 PO (22:43)
[2018-01-29] MEDS ORDERED: CYMBALTA30 M1 PO (22:43)
[2018-01-29] MEDS ORDERED: ELIQUIS5 M1 PO (22:43)
[2018-01-29] MEDS ORDERED: NYSTATIN15 G1 TOP (22:43)
[2018-01-29] MEDS ORDERED: GABAPENTIN400 M2 PO (22:43)
[2018-01-29] MEDS ORDERED: METFORMIN HCL1000 M1 PO (22:43)
[2018-02-08] MEDS ORDERED: ZOFRAN ODT4 M1 SL (05:43)
[2018-02-08] MEDS ORDERED: CLONIDINE HCL0.1 MG PO (05:43)
[2018-02-08] MEDS ORDERED: SUBOXONE 8 MG-1 EACH SL (06:04)
== END 2017-11-26 13:51 | DRG 750 ==
LOC: ERH 20:36 → ERHI 11-22 13:35 → CP SOUTH 11-22 13:35 → ENTRNSPT 11-22 16:28 → CP SOUTH 11-22 16:29 → EDTRNSPTSTS 11-22 16:42 → EDTRNSPT 11-22 16:42 → CP SOUTH 11-22 16:55 → CMPTRNSPT 11-22 17:22 → CP SOUTH 11-23 11:03
PROVIDERS: Emergency Medicine
DX: F25.8 Other schizoaffective disorders (principal); F14.90 Cocaine use, unspecified, uncomplicated; F11.90 Opioid use, unspecified, uncomplicated; I10 Essential (primary) hypertension; Z86.718 Personal history of other venous thrombosis and embolism
CPT/HCPCS: 80305; 80307; 81003; 90714; 93005; 93010; G0480; J3101; J3490

== ENCOUNTER 2017-12-15 20:40 | Emergency (ER) | payer OTHER ==
[~2017-12-15] VITALS: Ht 172.7 cm; Wt 102.1 kg
[~2017-12-15 20:40] MED LIST changes: +LITHIUM CARBON150 M1 PO; +LORATADINE10 M1 PO; +NICORELIEF2 MG PO; +ONE DAILY MULT1 EAC2 PO
--- NOTE | 2017-12-15 20:53 | ED PSYCHIATRIC COMPLAINT ---
History of Present Illness General Chief Complaint: Psychiatric Related Complaint Stated Complaint: BIBA +SI Source: patient Exam Limitations: no limitations Vital Signs & Intake/Output Vital Signs & Intake/Output Vital Signs Date Time Temp Pulse Resp B/P B/P Pulse O2 O2 Flow FiO2 Mean Ox Delivery Rate 12/16 1754 98.0 97 18 132/69 98 Room Air Room Air 12/16 1130 83 18 118/59 99 Room Air Room Air 12/16 0807 73 18 142/79 97 Room Air 12/16 0634 96.8 98 16 130/80 96 Room Air 12/15 2129 97.6 79 18 108/56 97 Room Air Room Air ED Intake and Output 12/16 0000 12/15 1200 Intake Total Output Total Balance Patient 225 lb Weight Weight Estimated Measurement Method Allergies Coded Allergies: azithromycin (UNKNOWN 11/23/17) chlorpromazine (From THORAZINE) (UNKNOWN 11/23/17) haloperidol (From HALDOL) (UNKNOWN 11/23/17) trazodone (UNKNOWN 11/23/17) Reconcile Medications Albuterol Sulfate (Proair Hfa) 90 MCG HFA.AER.AD 2 PUF INH Q4-6 PRN PRN ASTHMA Apixaban (Eliquis) 5 MG TABLET 1 TAB PO BID blood thinner Buprenorphine HCl/Naloxone HCl (Suboxone 12 MG-3 MG Sl Film) 12 MG-3 MG FILM 1 STR SL BID CHRONIC PAIN/SUBSTANCE ABUSE (Reported) Duloxetine Hydrochloride (Cymbalta) 30 MG CAPSULE. 1 CAP PO DAILY depression /pain Esomeprazole (Nexium) 40 MG CAPSULE.DR 1 CAP PO DAILY GASTRITIS Furosemide 20 MG TABLET 1 MG PO 0730,1630 water retension/blood pressure Gabapentin 400 MG CAPSULE 1 CAP PO TID NEUROPATHY [place] Carbonate 150 MG CAPSULE 1 CAP PO 0800,2000 mood stabilizer Loratadine 10 MG TABLET 1 TAB PO DAILY allergies Metformin HCl 1,000 MG TABLET 1 TAB PO BID diabetes Multivitamin (One Daily Multivitamin) 1 EACH TABLET 1 TAB PO DAILY vitamin supplement Nicotine (Nicorelief) 2 MG GUM 1 GUM PO Q2P PRN nicotine craving Ondansetron (Zofran Odt) 4 MG TAB.RAPDIS 1 TAB SL TID PRN nausea Risperidone (Risperdal) 1 MG TABLET 1 TAB PO SEE ADMIN CRITERIA psychosis/ voices Take 1 po every AM and 2 po QHS Sucralfate (Carafate) 1 GRAM TABLET 1 TAB PO TIDAC abdominal pain Triage Nurses Notes Reviewed? yes Onset: Gradual Duration: week(s):, waxing and waning Timing: recent history Severity: moderate Associated Symptoms: anxiety, suicidal ideation HPI: 37-year-old gentleman history of schizophrenia, released from Inpatient Psych[facility]ry 3 weeks ago, presents with suicidality. He states that he ran out of his medications 2-3 days ago. Since that time he has felt worsening anxiety and has the sensation that he would like to cut his wrists. He states also that he ran out of all of his medications. He denies drug or alcohol use. He is otherwise well. (Kimmie MONTOYA,Jacky Ellis) Past History Travel History Traveled to [place] past 21 day No Medical History Any Pertinent Medical History? 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 Mood disorder. Currently on Suboxone. Suicide attempts. Psychosis History of MRSA: Yes History of VRE: No History of CDIFF: No Tetanus Vaccine: 11/23/17 Surgical History Surgical History: non-contributory Psychosocial History Who do you live with Other (see notes) What is your primary language Argentine Family History Family History, If Any: FATHER FH: heart disease Relation not specified for: Psychiatric disorder Hx Contributory? No (Kimmie MONTOYA,Jacky Ellis) Review of Systems Review of Systems Constitutional: Reports: no symptoms. EENTM: Reports: no symptoms. Respiratory: Reports: no symptoms. Cardiovascular: Reports: no symptoms. GI: Reports: no symptoms. Genitourinary: Reports: no symptoms. Musculoskeletal: Reports: no symptoms. Skin: Reports: no symptoms. Neurological/Psychological: Reports: no symptoms. Hematologic/Endocrine: Reports: no symptoms. Immunologic/Allergic: Reports: no symptoms. All Other Systems: Reviewed and Negative (Kimmie MONTOYA,Jacky Ellis) Physical Exam Physical Exam General Appearance: well developed/nourished, mild distress Head: atraumatic Eyes: Bilateral: PERRL, EOMI. Ears, Nose, Throat: normal pharynx, normal ENT inspection, hearing grossly normal Neck: normal inspection, supple Respiratory: normal breath sounds Cardiovascular: regular rate/rhythm Gastrointestinal: soft, non-tender Extremities: normal range of motion Neurological/Psychiatric: no motor/sensory deficits, awake, alert, flat, oriented x 3 Appearance/Memory/Insight: appropriate insight Behavoir/Eye Contact/Speech: cooperative Skin: intact, normal color, warm/dry SAD PERSONS SAD PERSONS Response Value Male Sex? yes 1 Depression/Hopelessness? yes 2 Previous Attempts/Psych Care yes 1 Rational Thinking Loss? yes 2 Single//? yes 1 Social Support? has no support 1 Total 8 SAD PERSONS Done? yes (Kimmie MONTOYA,Jacky Ellis) Progress Differential Diagnosis: suicidality vs other. Plan of Care: Orders Procedure Date/time Status Regular Diet 12/16 B Active Continuous Observation Monitor 12/16 1900 Active Continuous Observation Monitor 12/16 1500 Active CBC WITHOUT DIFFERENTIAL 12/16 1153 Complete LITHIUM 12/16 1104 Complete ETHANOL 12/16 1104 Complete COMPREHENSIVE METABOLIC PANEL 12/16 1104 Complete Continuous Observation Monitor 12/16 1100 Active Continuous Observation Monitor 12/16 0700 Active URINE DRUG SCREEN FOR ER ONLY 12/16 0153 Complete URINALYSIS 12/16 0153 Complete Continuous Observation Monitor 12/15 2045 Active ED CRISIS PSYCH CONSULT 12/15 2044 Active Current Medications Sig/Rodrigo Start time Last Medication Dose Stop Time Status Admin Ondansetron HCl 4 MG TID PRN 12/16 1500 UNVr (Zofran) Loratadine 10 MG DAILY 12/16 0900 UNVr 12/16 (Claritin) 1200 Risperidone 1 MG DAILY 12/16 0900 UNVr 12/16 (Risperidone) 1200 Sucralfate 1,000 MG TIDAC 12/16 0800 UNVr 12/16 (Carafate) 1213 Omeprazole 40 MG DAILY AC 12/16 0700 UNVr 12/16 (Prilosec) 1200 Risperidone 2 MG QPM 12/15 2359 AC 12/15 (Risperidone) 2346 Albuterol Sulfate 2 PUF Q4-6 PRN PRN 12/15 2145 AC (Ventolin) Gabapentin 400 MG TID 12/15 2133 UNVr 12/16 (Neurontin) 1440 Metformin HCl 1,000 MG BID 12/15 2133 UNVr 12/16 (Glucophage) 1200 Laboratory Tests 12/16/17 1159: Anion Gap 12, Estimated GFR > 60, BUN/Creatinine Ratio 14.3, Glucose 225 H, Calcium 9.4, Total Bilirubin 0.3, AST 15 L, ALT 29, Alkaline Phosphatase 70, Total Protein 7.0, Albumin 3.8, Globulin 3.2, Albumin/Globulin Ratio 1.2, CBC w Diff NO MAN DIFF REQ, RBC 4.81, MCV 88.5, MCH 29.1, MCHC 32.9 L, RDW 13.2, MPV 8.9, Gran % 67.3, Lymphocytes % 21.0, Monocytes % 10.0 H, Eosinophils % 1.4, Basophils % 0.3, Absolute Granulocytes 7.3 H, Absolute Lymphocytes 2.3, Absolute Monocytes 1.1 H, Absolute Eosinophils 0.1, Absolute Basophils 0, [place] < 0.2 L, Serum Alcohol < 10.0 12/16/17 0815: Urine Opiates Screen < 100, Methadone Screen < 40, Barbiturate Screen < 60, Ur Phencyclidine Scrn < 6.00, Amphetamines Screen < 100, U Benzodiazepines Scrn < 85, Urine Cocaine Screen > 1000.0 H, Urine Cannabis Screen < 5.00, Urine Color YEL, Urine Clarity CLEAR, Urine pH 6.0, Ur Specific [place] <= 1.005, Urine Protein NEG, Urine Ketones NEG, Urine Nitrite NEG, Urine Bilirubin NEG, Urine Urobilinogen 0.2, Ur Leukocyte Esterase NEG, Ur Microscopic EXAM NOT REQUIRED, Urine Hemoglobin NEG, Urine Glucose NEG 12/15/17 213: [place] Cancelled 12/15/172044: [place] Cancelled, Serum Alcohol Cancelled 12/15/172044: Sodium Cancelled, Potassium Cancelled, Chloride Cancelled, Carbon Dioxide Cancelled, Anion Gap Cancelled, BUN Cancelled, Creatinine Cancelled, BUN/ Creatinine Ratio Cancelled, Glucose Cancelled, Calcium Cancelled, Total Bilirubin Cancelled, AST Cancelled, ALT Cancelled, Alkaline Phosphatase Cancelled, Total Protein Cancelled, Albumin Cancelled, Globulin Cancelled, Albumin/Globulin Ratio Cancelled, CBC w Diff Cancelled, WBC Cancelled, RBC Cancelled, Hgb Cancelled, Hct Cancelled, MCV Cancelled, MCH Cancelled, MCHC Cancelled, RDW Cancelled, Plt Count Cancelled, MPV Cancelled, Methadone Screen Cancelled, Barbiturate Screen Cancelled, Ur Phencyclidine Scrn Cancelled, Amphetamines Screen Cancelled, U Benzodiazepines Scrn Cancelled, Urine Cocaine Screen Cancelled, Urine Cannabis Screen Cancelled, Urine Color Cancelled, Urine Clarity Cancelled, Urine pH Cancelled, Ur Specific [place] Cancelled, Urine Protein Cancelled, Urine Ketones Cancelled, Urine Nitrite Cancelled, Urine Bilirubin Cancelled, Urine Urobilinogen Cancelled, Ur Leukocyte Esterase Cancelled, Ur Microscopic Cancelled, Urine Hemoglobin Cancelled, Urine Glucose Cancelled Hand-Off Endorsed To: Ed Maldonado MD Endorsed Time: 0700 Pending: consult, labs (Jacky Burks MD) Comments: Cleared by psychiatry for discharge. (Ed Maldoando MD) Departure Departure Condition: Stable Clinical Impression Primary Impression: Schizophrenia Referrals: Ortiz Andersen MD (PCP/Family) (Jacky Burks MD) Departure Time of Disposition: 1845 Disposition: HOME OR SELF CARE Additional Instructions: Follow up with the recommendations of the clerical and administrative workers. Departure Forms: General Discharge Information (Ed Maldonado MD) (Jacky Burks MD) Departure Time of Disposition: 1845 Disposition: HOME OR SELF CARE Additional Instructions: Follow up with the recommendations of the clerical and administrative workers. (Ed Maldonado MD)
[2017-12-16 12:06] LABS: ABSOLUTE BASOPHIL COUNT 0 /CUMM (0.0-0.2); ABSOLUTE EOSINOPHIL COUNT 0.1 /CUMM (0.0-0.7); ABSOLUTE GRANULOCYTE CT 7.3 /CUMM (1.4-6.5); ABSOLUTE LYMPH COUNT 2.3 /CUMM (1.2-3.4); ABSOLUTE MONOCYTE COUNT 1.1 /CUMM (0.10-0.60); BASOPHIL % 0.3 % (0.0-2.0); EOSINOPHIL % 1.4 % (0-5); GRANULOCYTE % 67.3 % (42.2-75.2); HEMATOCRIT 42.5 % (42-52); MEAN CORPUSCULAR HGB 29.1 PG (27.0-31.0); MEAN CORPUSCULAR HGB CONC 32.9 G/DL (33.0-37.0); MEAN CORPUSCULAR VOLUME 88.5 FL (80.0-94.0); MEAN PLATELET VOLUME 8.9 FL (7.4-10.4); PLATELET COUNT 273 /CUMM (130-400); RBC DISTRIBUTION WIDTH 13.2 % (11.5-14.5); RED BLOOD CELL CT 4.81 /CUMM (4.70-6.10); WHITE BLOOD CELL COUNT 10.9 /CUMM (4.8-10.8)
[2017-12-16 12:24] LABS: LITHIUM < 0.2 mmol/L (0.6-1.2)
--- NOTE | 2017-12-16 13:56 | ED PSYCH CRISIS CONSULTATION ---
See Addendum Crisis Consult Basic Assessment Date of Consult: 12/16/17 Responsible Person/Accompanied By: Self Insurance Authorization: Insurance #1: Insurance name: JOSEPH HIGGINBOTHAM Phone number: Policy number: [id number] Group number: Authorization number: ED Provider: Patient's ED Provider: Kimmie MONTOYA,Jacky Ellis Primary Care Physician: Patient's PCP: Ortiz Andersen MD PCP's Current Psychiatrist: Monet العلي MD Chief Complaint: Psychiatric Related Complaint Patient's Quote: "I need refill of my medications" Present Illness: Pt is a 37 yo single male. Pt presented to the ED the evening of BIBA with reports of suicidal thoughts. Pt reports he called 911 and told them he "ran out of his medication (risperdal) and when he doesn't have this medication it usually leads to him becoming suicidal". Pt's urine toxicology was positive for cocaine. Pt is not on a PEER. Presenting problem, "I need refill of my medications". According to the pt is was taking the following medications and current do not have anymore medications. Risperidol, Metformin, Cymbalta, Suboxone, Neurotin. Pt states he was recently discharged from [facility] on 11/22 to 11/26/17. Pt shared that his discharge plan was to attend outpatient treatment at [facility] in [place] but he did not make it to [facility], however, he claims he has an appointment on December 27, 2017 for an intake at [facility]. Call Taker contacted Zuri Lu (paternal aunt) who lives in [place]. Amanda (not fluent in Persian) shared pt lives in [place] and she does have much contact with him. She said she both his parents are . Zuri said that she knows the pt is diabetic and has mental health problems. She also said, so that you know "he cannot live at my house, I'm willing to give him food , but he cannot stay with me". Pt said he is homeless and staying with friends at two different places in [place]. However, the places he is staying has "a lot of drug activity" At this time pt is not engaging with Clinician because he is very upset that it was written last night that he was suicidal. Pt states he is not suicidal and he does not want to kill anyone. He came to the ED simple to get refill of his medications. Consultation with Dr. العلي who wants the patient to be given his medical and psychiatric medications. Monitor his Blood Glucose level because of his diabetes. Contact [facility] and or other outpatient services for an earlier intake appointment for pt to have immediate outpatient services to continue medication treatment. Patient's Address: [place] [address] Other Phone Number: Who Do You Live With? Other (see notes) Family/Informants Interviewed: Phone contact with Zuri Hernandez (paternal aunt ) who lives in [place]. She is aware that Freedom has mental health problems and diabetes, but she is not able to help him other than give him food when he show up at her home Allergies - Coded Allergies: azithromycin (UNKNOWN 11/23/17) chlorpromazine (From THORAZINE) (UNKNOWN 11/23/17) haloperidol (From HALDOL) (UNKNOWN 11/23/17) trazodone (UNKNOWN 11/23/17) Current Medications - Scheduled Medications Apixaban (Eliquis) 5 MG TABLET 1 TAB PO BID blood thinner #28 TAB Prescribed by Jacky Jc MD on 11/26/17 Buprenorphine HCl/Naloxone HCl (Suboxone 12 MG-3 MG Sl Film) 12 MG-3 MG FILM 1 STR SL BID CHRONIC PAIN/SUBSTANCE ABUSE (Reported) Entered as Reported by Gretchen Mueller on 03/05/172119 Duloxetine Hydrochloride (Cymbalta) 30 MG CAPSULE.DR 1 CAP PO DAILY depression /pain #14 CAP Prescribed by Jacky Jc MD on 11/26/17 Esomeprazole (Nexium) 40 MG CAPSULE.DR 1 CAP PO DAILY GASTRITIS #14 CAP Prescribed by Jacky Jc MD on 11/26/17 Furosemide 20 MG TABLET 1 MG PO 0730,1630 water retension/blood pressure #28 TAB Prescribed by Jacky Jc MD on 11/26/17 Gabapentin 400 MG CAPSULE 1 CAP PO TID NEUROPATHY #42 CAP Prescribed by Jacky Jc MD on 11/26/17 [place] Carbonate 150 MG CAPSULE 1 CAP PO 0800,2000 mood stabilizer #28 CAP Prescribed by Jacky Jc MD on 11/26/17 Loratadine 10 MG TABLET 1 TAB PO DAILY allergies #14 TAB Prescribed by Jacky Jc MD on 11/26/17 Metformin HCl 1,000 MG TABLET 1 TAB PO BID diabetes #28 TAB Prescribed by Jacky Jc MD on 11/26/17 Multivitamin (One Daily Multivitamin) 1 EACH TABLET 1 TAB PO DAILY vitamin supplement #14 TAB Prescribed by Jacky Jc MD on 11/26/17 Risperidone (Risperdal) 1 MG TABLET 1 TAB PO SEE ADMIN CRITERIA psychosis/ voices #42 TAB Prescribed by Jacky Jc MD on 11/26/17 Sucralfate (Carafate) 1 GRAM TABLET 1 TAB PO TIDAC abdominal pain #42 TAB Prescribed by Jacky Jc MD on 11/26/17 Scheduled PRN Medications Albuterol Sulfate (Proair Hfa) 90 MCG HFA.AER.AD 2 PUF INH Q4-6 PRN PRN ASTHMA #1 INHAL Prescribed by Rickey Suarez on 09/25/17 Nicotine (Nicorelief) 2 MG GUM 1 GUM PO Q2P PRN nicotine craving #100 GUM Prescribed by Jacky Jc MD on 11/26/17 Ondansetron (Zofran Odt) 4 MG TAB.RAPDIS 1 TAB SL TID PRN nausea #10 TAB Prescribed by Jacky Jc MD on 11/26/17 Laboratory Results: Laboratory Tests 12/16/17 1159: Anion Gap 12, Estimated GFR > 60, BUN/Creatinine Ratio 14.3, Glucose 225 H, Calcium 9.4, Total Bilirubin 0.3, AST 15 L, ALT 29, Alkaline Phosphatase 70, Total Protein 7.0, Albumin 3.8, Globulin 3.2, Albumin/Globulin Ratio 1.2, CBC w Diff NO MAN DIFF REQ, RBC 4.81, MCV 88.5, MCH 29.1, MCHC 32.9 L, RDW 13.2, MPV 8.9, Gran % 67.3, Lymphocytes % 21.0, Monocytes % 10.0 H, Eosinophils % 1.4, Basophils % 0.3, Absolute Granulocytes 7.3 H, Absolute Lymphocytes 2.3, Absolute Monocytes 1.1 H, Absolute Eosinophils 0.1, Absolute Basophils 0, [place] < 0.2 L, Serum Alcohol < 10.0 12/16/17 0815: Urine Opiates Screen < 100, Methadone Screen < 40, Barbiturate Screen < 60, Ur Phencyclidine Scrn < 6.00, Amphetamines Screen < 100, U Benzodiazepines Scrn < 85, Urine Cocaine Screen > 1000.0 H, Urine Cannabis Screen < 5.00, Urine Color YEL, Urine Clarity CLEAR, Urine pH 6.0, Ur Specific [place] <= 1.005, Urine Protein NEG, Urine Ketones NEG, Urine Nitrite NEG, Urine Bilirubin NEG, Urine Urobilinogen 0.2, Ur Leukocyte Esterase NEG, Ur Microscopic EXAM NOT REQUIRED, Urine Hemoglobin NEG, Urine Glucose NEG 12/15/172134: [place] Cancelled 12/15/172044: [place] Cancelled, Serum Alcohol Cancelled 12/15/172044: Sodium Cancelled, Potassium Cancelled, Chloride Cancelled, Carbon Dioxide Cancelled, Anion Gap Cancelled, BUN Cancelled, Creatinine Cancelled, BUN/ Creatinine Ratio Cancelled, Glucose Cancelled, Calcium Cancelled, Total Bilirubin Cancelled, AST Cancelled, ALT Cancelled, Alkaline Phosphatase Cancelled, Total Protein Cancelled, Albumin Cancelled, Globulin Cancelled, Albumin/Globulin Ratio Cancelled, CBC w Diff Cancelled, WBC Cancelled, RBC Cancelled, Hgb Cancelled, Hct Cancelled, MCV Cancelled, MCH Cancelled, MCHC Cancelled, RDW Cancelled, Plt Count Cancelled, MPV Cancelled, Methadone Screen Cancelled, Barbiturate Screen Cancelled, Ur Phencyclidine Scrn Cancelled, Amphetamines Screen Cancelled, U Benzodiazepines Scrn Cancelled, Urine Cocaine Screen Cancelled, Urine Cannabis Screen Cancelled, Urine Color Cancelled, Urine Clarity Cancelled, Urine pH Cancelled, Ur Specific [place] Cancelled, Urine Protein Cancelled, Urine Ketones Cancelled, Urine Nitrite Cancelled, Urine Bilirubin Cancelled, Urine Urobilinogen Cancelled, Ur Leukocyte Esterase Cancelled, Ur Microscopic Cancelled, Urine Hemoglobin Cancelled, Urine Glucose Cancelled Past History Past Medical History Neurological: NONE EENT: NONE Cardiovascular: hypertension Respiratory: pulmonary embolism Gastrointestinal: GERD Hepatic: NONE Renal: NONE Musculoskeletal: chronic back pain Psychiatric: anxiety, bipolar disease, depression, schizo affective disorder, substance abuse, Intermittent explosive disorder Endocrine: diabetes Blood Disorders: DVT, PE Cancer(s): NONE 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 11/22 to 11/26/17 Reason for Treatment Suicidal ideation with plan to overdose on his medications. Dates of Treatment 11/22-11/26/17 Response to Treatment No follow up with outpatient services. Diagnosis by History: Schizophrenia Bipolar Depression Substance Use/Abuse History Drug Use/Abuse Substances Used/Abused Yes Substance Used/Abused Cocaine First Use Unknown Last Used 12/15/17 How much used/taken Unknown How often Not assessed For how long Not assessed Route of use Not assessed Substance Abuse Treatment Substance Abuse Treatment Past Substance Abuse [place] Yes Inpatient Treatment Yes Outpatient Treatment Yes Location of Treatment [facility] Dual Diagnoses Treatment [facility] Reason for Treatment Substance Abuse Mental Health Dates of Treatment "2 months ago" Response to Treatment Relapse Current Mental Status Mental Status Orientation: Current situation Affect: Anxious, Angry Speech: Pressured Neuro-vegetative: Concentration Poor Appearance Appearance- Dress/Hygiene: Disheveled, malodorous Behaviors Thought Process: Disorganized, Tangential ("I'm all over the place") Thought Content: Disorganized Memory: Impaired Insight: Poor SI/HI Risk Assessment Past Suicidal Ideation/Attempts Yes Current Suicidal Ideation/Att No Past Homicidal Ideation/Att: No Current Homicidal Ideation/Attempts No Degree of Intent: None Danger To: n/a Gravely Disabled: Poor Judgment Risk Factors: high anxiety/distress, SA/MH hospitalized, substance abuse, male, limited support Lethality Ratin PTSD Checklist PTSD Done? pt unable to participate ED Management Sitter: Yes Restraints: No DSM5/PS Stressors/Medical Prob Diagnosis' (DSM 5, Stressors, Medical): F25.0 Schizoaffective Disorder Bipolar Type, F14.20 Cocaine Use Disorder Severe , Hx Pulonary Embolism Hx DVT Sinus Congestion, HTN, NIDDM. SSI benefits, Unemployed, Homeless Current GAF: 30 Departure Disposition Psych Medical Clearance Date: 12/16/17 Medically Cleared at: 0900 Time Started: 1030 Time Ended: 1115 Psychiatrist Consulted: Monet العلي MD Date Disposition Established: 12/16/17 Time Disposition Established: 0200 Plan for Disposition - Modality: Hold Over monitor and resume medication treatment Facility: [facility] Follow-up Appt Date: 12/17/17 Follow-Up Appt Time: 0900 Contact: Crisis Telephone: [phone] Rationale for Disposition: Pt present to the ED with verbal reports of risk of suicidal thoughts because he does not have his medications. Pt contacted 911 and told them he is afraid he does not have his medication and usually when he doesn't have the medication risperal he becomes suicidal. Consultation with Dr. العلي who suggest resume all pt's medication, hold the pt overnight monitor and observe and reassess on for a discharge plan that get the pt an immediate intake outpatient appointment. Referrals Ortiz Andersen MD (PCP/Family)
[2017-12-16 17:54] VITALS: BP 132/69
== END 2017-12-16 19:38 ==
LOC: ERH 20:40
PROVIDERS: Emergency Medicine; Pediatrics
DX: F20.9 Schizophrenia, unspecified (principal)
CPT/HCPCS: 80307; 81003; G0463; G0480; J0574; J3101

== ENCOUNTER 2018-01-19 18:15 | Inpatient (IN) | payer OTHER ==
[~2018-01-19] VITALS: Ht 170.2 cm; Wt 113.4 kg
--- NOTE | 2018-01-19 18:27 | ED PSYCHIATRIC COMPLAINT ---
See Addendum History of Present Illness General Chief Complaint: Psychiatric Related Complaint Stated Complaint: RAN OUT OF MEDICATION, +SI Source: patient, old records, EMS Exam Limitations: no limitations Vital Signs & Intake/Output Vital Signs & Intake/Output Vital Signs Date Time Temp Pulse Resp B/P B/P Pulse O2 O2 Flow FiO2 Mean Ox Delivery Rate 01/20 0649 97.9 66 20 103/57 97 Room Air 01/19 2100 99.3 71 20 122/63 96 01/19 1824 98.2 79 18 113/56 98 Room Air ED Intake and Output 01/20 0000 01/19 1200 Intake Total Output Total Balance Patient 251 lb Weight Allergies Coded Allergies: azithromycin (UNKNOWN 11/23/17) chlorpromazine (From THORAZINE) (UNKNOWN 11/23/17) haloperidol (From HALDOL) (UNKNOWN 11/23/17) trazodone (UNKNOWN 11/23/17) Reconcile Medications Albuterol Sulfate (Proair Hfa) 90 MCG HFA.AER.AD 2 PUF INH Q4-6 PRN PRN ASTHMA Apixaban (Eliquis) 5 MG TABLET 1 TAB PO BID blood thinner Buprenorphine HCl/Naloxone HCl (Suboxone 12 MG-3 MG Sl Film) 12 MG-3 MG FILM 1 STR SL BID CHRONIC PAIN/SUBSTANCE ABUSE (Reported) Duloxetine Hydrochloride (Cymbalta) 30 MG CAPSULE.DR 1 CAP PO DAILY depression /pain Esomeprazole (Nexium) 40 MG CAPSULE.DR 1 CAP PO DAILY GASTRITIS Furosemide 20 MG TABLET 1 MG PO 0730,1630 water retension/blood pressure Gabapentin 400 MG CAPSULE 1 CAP PO TID NEUROPATHY [place] Carbonate 150 MG CAPSULE 1 CAP PO 0800,2000 mood stabilizer Loratadine 10 MG TABLET 1 TAB PO DAILY allergies Metformin HCl 1,000 MG TABLET 1 TAB PO BID diabetes Multivitamin (One Daily Multivitamin) 1 EACH TABLET 1 TAB PO DAILY vitamin supplement Nicotine (Nicorelief) 2 MG GUM 1 GUM PO Q2P PRN nicotine craving Ondansetron (Zofran Odt) 4 MG TAB.RAPDIS 1 TAB SL TID PRN nausea Risperidone (Risperdal) 1 MG TABLET 1 TAB PO SEE ADMIN CRITERIA psychosis/ voices Take 1 po every AM and 2 po QHS Sucralfate (Carafate) 1 GRAM TABLET 1 TAB PO TIDAC abdominal pain Triage Note: 37M REPORTS DIFFICULTY GETTING IN WITH [facility] BUT UNABLE TO GET IN CONTACT OR IN FOR AN APPT. STATES HE RAN OUT OF HIS MEDS 2-3 DAYS AGO. TAKES RISPERDAL 0.5MG QAM AND 1MG QHS, CYMBALTA 30MG DAILY AND SUBOXONE 12MG TID. ENDORSES INCREASING SI THOUGHTS WITH PLAN TO HANG HIMSELF. ARRIVES WITHDRAWN, EVASIVE AND DYSPHORIC. COOPERATIVE WITH PROCEDURES ON ARRIVAL. DENIES HI OR ETOH. Triage Nurses Notes Reviewed? yes Onset: 3 days Duration: day(s):, constant, continues in ED, getting worse Timing: recent history Severity: moderate, severe Associated Symptoms: anxiety, impaired concentration, suicidal ideation HPI: 3 days prior to admission patient began using cocaine and reportedly ran out of his medications. He complains of increased depression and anxiety auditory hallucinations telling him to cut himself and he also considers hanging himself. He also reports not taking lithium since discharge from the hospital because he was advised by the pharmacist that it likely was the cause of his leg swelling. He denies fever chills nausea vomiting diarrhea abdominal pain chest pain shortness breath headache dysuria rash bleeding homicidal ideation. (Ed Maldonado MD) Past History Travel History Traveled to [place] past 21 day No Medical History Any Pertinent Medical History? 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 Mood disorder. Currently on Suboxone. Suicide attempts. Psychosis History of MRSA: Yes History of VRE: No History of CDIFF: No Tetanus Vaccine: 11/23/17 Surgical History Surgical History: non-contributory Psychosocial History Who do you live with Other (see notes) What is your primary language German Tobacco Use: Current Daily Use Daily Tobacco Use Amount/Type: => 5 Cigarettes daily ETOH Use: denies use Illicit Drug Use: SUBOXONE Family History Family History, If Any: FATHER FH: heart disease Relation not specified for: Psychiatric disorder Hx Contributory? No (Ed Maldonado MD) Review of Systems Review of Systems Constitutional: Reports: no symptoms. EENTM: Reports: no symptoms. Respiratory: Reports: no symptoms. Cardiovascular: Reports: see HPI, edema. GI: Reports: no symptoms. Genitourinary: Reports: no symptoms. Musculoskeletal: Reports: no symptoms. Skin: Reports: no symptoms. Neurological/Psychological: Reports: see HPI, anxiety, confusion, depressed, emotional problems. Hematologic/Endocrine: Reports: no symptoms. Immunologic/Allergic: Reports: no symptoms. All Other Systems: Reviewed and Negative (Ed Maldonado MD) Physical Exam Physical Exam General Appearance: well developed/nourished, alert, awake, anxious, moderate distress Head: atraumatic, normal appearance Eyes: Bilateral: normal appearance, PERRL, EOMI. 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 yes (Ed Maldonado MD) Progress Differential Diagnosis: drug intoxication, drug overdose, drug withdrawal, electrolyte abnormality, hypoglycemia Plan of Care: Orders Procedure Date/time Status Consistent Carbohydrate 1 01/20 B Active D-DIMER 01/19 1838 Complete ED CRISIS PSYCH CONSULT 01/19 1831 Active Continuous Observation Monitor 01/19 1823 Active URINE DRUG SCREEN FOR ER ONLY 01/19 1823 Complete LITHIUM 01/19 1823 Complete ETHANOL 01/19 182 Complete COMPREHENSIVE METABOLIC PANEL 01/19 182 Complete CBC WITHOUT DIFFERENTIAL 01/19 182 Complete Current Medications Sig/Rodrigo Start time Last Medication Dose Stop Time Status Admin Risperidone 0.5 MG DAILY 01/20 0900 AC (risperiDONE) Nystatin 1 DOUG BID PRN 01/19 2330 UNVr (Mycostatin) Apixaban 5 MG BID 01/19 2100 UNVr 01/19 (Eliquis) 2122 Gabapentin 400 MG TID 01/19 2100 UNVr 01/19 (Neurontin) 2122 Risperidone 1 MG QPM 01/19 2100 AC 01/19 (Risperidone) 2122 Buprenorphine/ 1.5 TAB BID 01/19 1845 UNVr 01/19 Naloxone 1919 (Suboxone) Furosemide 20 MG 0730,1630 01/19 183 AC 01/20 (Lasix) 06 Nicotine 21 MG DAILY 01/19 1831 UNVr 01/19 (Nicoderm) 192 Albuterol Sulfate 2 PUF Q4-6 PRN PRN 01/19 1830 UNVr (Ventolin) Duloxetine HCl 30 MG DAILY 01/20 1828 UNVr 01/19 (Cymbalta) 1919 Omeprazole 40 MG DAILY AC 01/20 1828 UNVr 01/20 (Prilosec) 06 Metformin HCl 1,000 MG 0800,1700 01/19 1700 AC 01/19 (Glucophage) 1919 Laboratory Tests 01/19/181844: Anion Gap 11, Estimated GFR > 60, BUN/Creatinine Ratio 15.0, Glucose 127 H, Calcium 9.1, Total Bilirubin 0.5, AST 20, ALT 36, Alkaline Phosphatase 62, Total Protein 6.5, Albumin 3.8, Globulin 2.7, Albumin/Globulin Ratio 1.4, D-Dimer High Sensitivty 279 H, [place] < 0.2 L, Serum Alcohol < 10.0 01/19/181842: CBC w Diff NO MAN DIFF REQ, RBC 4.46 L, MCV 87.8, MCH 29.4, MCHC 33.5, RDW 13.1 , MPV 9.3, Gran % 59.0, Lymphocytes % 26.2, Monocytes % 12.9 H, Eosinophils % 1.6, Basophils % 0.3, Absolute Granulocytes 8.1 H, Absolute Lymphocytes 3.6 H, Absolute Monocytes 1.8 H, Absolute Eosinophils 0.2, Absolute Basophils 0 01/19/181839: Urine Opiates Screen < 100, Methadone Screen < 40, Barbiturate Screen < 60, Ur Phencyclidine Scrn < 6.00, Amphetamines Screen < 100, U Benzodiazepines Scrn < 85, Urine Cocaine Screen > 1000 H, Urine Cannabis Screen 16.60 Hand-Off Endorsed To: Ishan Mendosa MD Endorsed Time: 1899 Pending: consult, labs (Ed Maldonado MD) Comments: 01/19/2018 7:16:16 PM pt signed out to me by dr maldonado at shift changeover. 01/19/2018 11:26:47 PM You approached me with a complaint of bilateral proximal medial thigh rash that he has had in the past. He feels it secondary to a fungal infection and has responded well to an antifungal cream previously. 01/20/2018 6:56:44 AM patient signed out to Dr. Maldonado at shift change manager after an uneventful emergency department stay overnight (Navya MONTOYA,Ishan Orozco) Departure Departure Disposition: STILL A PATIENT Condition: Stable Clinical Impression Primary Impression: Suicidal ideation Secondary Impressions: Auditory hallucinations Referrals: Ortiz Andersen MD (PCP/Family) Departure Forms: Customer Survey General Discharge Information (Ed Maldonado MD)
[2018-01-19 19:08] LABS: ABSOLUTE BASOPHIL COUNT 0 /CUMM (0.0-0.2); ABSOLUTE EOSINOPHIL COUNT 0.2 /CUMM (0.0-0.7); ABSOLUTE GRANULOCYTE CT 8.1 /CUMM (1.4-6.5); ABSOLUTE LYMPH COUNT 3.6 /CUMM (1.2-3.4); ABSOLUTE MONOCYTE COUNT 1.8 /CUMM (0.10-0.60); BASOPHIL % 0.3 % (0.0-2.0); EOSINOPHIL % 1.6 % (0-5); HEMATOCRIT 39.1 % (42-52); MEAN CORPUSCULAR HGB 29.4 PG (27.0-31.0); MEAN CORPUSCULAR HGB CONC 33.5 G/DL (33.0-37.0); MEAN CORPUSCULAR VOLUME 87.8 FL (80.0-94.0); MEAN PLATELET VOLUME 9.3 FL (7.4-10.4); PLATELET COUNT 264 /CUMM (130-400); RBC DISTRIBUTION WIDTH 13.1 % (11.5-14.5); RED BLOOD CELL CT 4.46 /CUMM (4.70-6.10); WHITE BLOOD CELL COUNT 13.6 /CUMM (4.8-10.8)
[2018-01-19 19:27] LABS: LITHIUM < 0.2 mmol/L (0.6-1.2)
--- NOTE | 2018-01-20 12:45 | ED PSYCH CRISIS CONSULTATION ---
Crisis Consult Basic Assessment Date of Consult: 02/17/18 Responsible Person/Accompanied By: self Insurance Authorization: Insurance #1: Insurance name: JOSEPH HIGGINBOTHAM Phone number: Policy number: [id number] Group number: Authorization number: ED Provider: Patient's ED Provider: Ed Maldonado MD Primary Care Physician: Patient's PCP: Ortiz Andersen MD PCP's Current Psychiatrist: none - last orders by Dr Jc Chief Complaint: Psychiatric Related Complaint Patient's Quote: i'm hearing voices Present Illness: Pt is a 37 yo male biba to [place] ED last evening with reports of auditory hallucinations and SI. Pt states he is having thoughts of hanging himself. Pt has a hx of prior SI and self-cutting. Pt reports increased depression, anxiety, AV and cocaine relapse since running out of his medications. Pt denies HI. Pt reports he has been taking risperdal and cymbalta until last . Pt reports he was also prescribed [place] but stopped taking it because he believes it is causing his legs to swell. Pt had been recently inpatient on [facility] and discharged November 26 with a plan to receive tx [facility]. Pt reports not following plan and has had difficulty finding a provider. pt reports making attempts to receive tx at [facility] but reports arriving for an 8am appt on December 27 but no one was there. Collateral provided by [facility] indicate they are not open at that time but pt did have an appt December 27 but pt failed to attend. They weren't able to reschedule with him until later in January. Pt has a long hx of inpatient tx and has had prior diagnosis of schizoaffective and bipolar d/o. Pt urine tox screen was positive for cocaine. Pt reports he relapsed on Saturday and was first use in about 1 month. Pt is currently on probation for burglary and has a hx of incarceration for same. Pt reports he is temporarily staying with friends but has no permanent residency. Pt presents as irritable, anxious and OX3. Case reviewed with Dr Jc. Recomendation for inpatient psychiatric treatment. Pt is in agreement with plan and has signed form for voluntary admission. Patient's Address: [place] [address] Other Phone Number: Who Do You Live With? Other (see notes) (stays with friends) Family/Informants Interviewed: collateral provided by pt aunt Zuri [phone] Allergies - Coded Allergies: azithromycin (UNKNOWN 11/23/17) chlorpromazine (From THORAZINE) (UNKNOWN 11/23/17) haloperidol (From HALDOL) (UNKNOWN 11/23/17) trazodone (UNKNOWN 11/23/17) Current Medications - Scheduled Medications Apixaban (Eliquis) 5 MG TABLET 1 TAB PO BID blood thinner #28 TAB Prescribed by Jacky Jc MD on 11/26/17 Buprenorphine HCl/Naloxone HCl (Suboxone 12 MG-3 MG Sl Film) 12 MG-3 MG FILM 1 STR SL BID CHRONIC PAIN/SUBSTANCE ABUSE (Reported) Entered as Reported by Gretchen Mueller on 03/05/172119 Duloxetine Hydrochloride (Cymbalta) 30 MG CAPSULE.DR 1 CAP PO DAILY depression /pain #14 CAP Prescribed by Jacky Jc MD on 11/26/17 Esomeprazole (Nexium) 40 MG CAPSULE.DR 1 CAP PO DAILY GASTRITIS #14 CAP Prescribed by Jacky Jc MD on 11/26/17 Furosemide 20 MG TABLET 1 MG PO 0730,1630 water retension/blood pressure #28 TAB Prescribed by Jacky Jc MD on 11/26/17 Gabapentin 400 MG CAPSULE 1 CAP PO TID NEUROPATHY #42 CAP Prescribed by Jacky Jc MD on 11/26/17 [place] Carbonate 150 MG CAPSULE 1 CAP PO 0800,2000 mood stabilizer #28 CAP Prescribed by Jacky Jc MD on 11/26/17 Loratadine 10 MG TABLET 1 TAB PO DAILY allergies #14 TAB Prescribed by Jacky Jc MD on 11/26/17 Metformin HCl 1,000 MG TABLET 1 TAB PO BID diabetes #28 TAB Prescribed by Jacky Jc MD on 11/26/17 Multivitamin (One Daily Multivitamin) 1 EACH TABLET 1 TAB PO DAILY vitamin supplement #14 TAB Prescribed by Jacky Jc MD on 11/26/17 Risperidone (Risperdal) 1 MG TABLET 1 TAB PO SEE ADMIN CRITERIA psychosis/ voices #42 TAB Prescribed by Jacky Jc MD on 11/26/17 Sucralfate (Carafate) 1 GRAM TABLET 1 TAB PO TIDAC abdominal pain #42 TAB Prescribed by Jacky Jc MD on 11/26/17 Scheduled PRN Medications Albuterol Sulfate (Proair Hfa) 90 MCG HFA.AER.AD 2 PUF INH Q4-6 PRN PRN ASTHMA #1 INHAL Prescribed by Rickey Suarez on 09/25/17 Nicotine (Nicorelief) 2 MG GUM 1 GUM PO Q2P PRN nicotine craving #100 GUM Prescribed by Jacky Jc MD on 11/26/17 Ondansetron (Zofran Odt) 4 MG TAB.RAPDIS 1 TAB SL TID PRN nausea #10 TAB Prescribed by Jacky Jc MD on 11/26/17 Laboratory Results: Laboratory Tests 01/19/181844: Anion Gap 11, Estimated GFR > 60, BUN/Creatinine Ratio 15.0, Glucose 127 H, Calcium 9.1, Total Bilirubin 0.5, AST 20, ALT 36, Alkaline Phosphatase 62, Total Protein 6.5, Albumin 3.8, Globulin 2.7, Albumin/Globulin Ratio 1.4, D-Dimer High Sensitivty 279 H, [place] < 0.2 L, Serum Alcohol < 10.0 01/19/18 184: CBC w Diff NO MAN DIFF REQ, RBC 4.46 L, MCV 87.8, MCH 29.4, MCHC 33.5, RDW 13.1 , MPV 9.3, Gran % 59.0, Lymphocytes % 26.2, Monocytes % 12.9 H, Eosinophils % 1.6, Basophils % 0.3, Absolute Granulocytes 8.1 H, Absolute Lymphocytes 3.6 H, Absolute Monocytes 1.8 H, Absolute Eosinophils 0.2, Absolute Basophils 0 01/19/181839: Urine Opiates Screen < 100, Buprenorphine & Metab Pending, Methadone Screen < 40 , Barbiturate Screen < 60, Ur Phencyclidine Scrn < 6.00, Amphetamines Screen < 100, U Benzodiazepines Scrn < 85, Urine Cocaine Screen > 1000 H, Urine Cannabis Screen 16.60 Past History Past Medical History Neurological: NONE EENT: NONE Cardiovascular: hypertension Respiratory: pulmonary embolism Gastrointestinal: GERD Hepatic: NONE Renal: NONE Musculoskeletal: chronic back pain Psychiatric: anxiety, bipolar disease, depression, schizo affective disorder, substance abuse, Intermittent explosive disorder Endocrine: diabetes Blood Disorders: DVT, PE Cancer(s): NONE 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 Past Surgical History Surgical History: non-contributory Psychosocial History Strengths/Capabilities: pt is seeking help Physical Limitations (Interventions): back pain/injury 2010 Psychiatric Treatment History Psych Treatment Psychiatric Treatment Yes Inpatient Treatment Yes Outpatient Treatment Yes Location of Treatment [facility]; [facility] Reason for Treatment bipolar depression Dates of Treatment most recent inpatient [facility] November 2017 Response to Treatment pt has difficulty maintaining aftercare treatment Diagnosis by History: Schizophrenia Bipolar Depression Substance Use/Abuse History Drug Use/Abuse Substances Used/Abused Yes Substance Used/Abused Cocaine Last Used Saturday How much used/taken $60 worth How often 1st use past month Substance Abuse Treatment Substance Abuse Treatment Past Substance Abuse TX Yes Inpatient Treatment Yes Outpatient Treatment Yes Location of Treatment [place] Reason for Treatment etoh Dates of Treatment unsure Response to Treatment pt reports occasional etoh use. Comments: pt reports relapse on cocaine Saturday due to running out of medications Current Mental Status Mental Status Orientation: Person, Place, Situation Affect: Anxious, Depressed Speech: WNL Neuro-vegetative: Concentration Poor, Energy Decreased, Helpless, Sleep Disturbance Appearance Appearance- Dress/Hygiene: hospital scrubs; unkempt; disheveled; lethargic Behaviors Thought Process: Irrational Thought Content: WNL Memory: WNL Insight: Fair SI/HI Risk Assessment Past Suicidal Ideation/Attempts Yes Current Suicidal Ideation/Att Yes Past Homicidal Ideation/Att: No Current Homicidal Ideation/Attempts No Degree of Intent: Thoughts/No Intent Danger To: Self Gravely Disabled: Lack of Insight, Poor Impulse Control, Poor Judgment Risk Factors: chronic/serious med cond., high anxiety/distress, SA/MH hospitalized, substance abuse, poor impulse control, male, limited support Lethality Ratin PTSD Checklist PTSD Done? patient declined ED Management Sitter: Yes Restraints: No DSM5/PS Stressors/Medical Prob Diagnosis' (DSM 5, Stressors, Medical): Schizoaffective D/O depressed F25.1 Cocaine Use D/O F12.20 no current tx homeless diabetes chronic back pain Current GAF: 25 Comments: pt reports AH telling him to hang himself. Off medications. Difficulty scheduling an appt at [facility] Dep[facility]ure Disposition Psych Medical Clearance Date: 01/20/18 Medically Cleared at: 0815 Time Started: 0815 Time Ended: 0900 Psychiatrist Consulted: Jacky Jc MD Date Disposition Established: 01/20/18 Time Disposition Established: 09 Plan for Disposition - Modality: Inpatient Psychiatry Facility: bed search Rationale for Disposition: mood stabilization; medication assessment Type of IP Admission: Voluntary Referrals Ortiz Andersen MD (PCP/Family)
--- NOTE | 2018-01-20 18:53 | IP CRISIS DIAG ASSESS PSYCH ---
Diagnostic Assessment Basic Assessment Insurance Authorization: Insurance #1: Insurance name: JOSEPH HIGGINBOTHAM Phone number: Policy number: [id number] Group number: Authorization number: [id number] Primary Care Physician: Patient's PCP: Ortiz Andersen MD PCP's Patient's Quote: i'm hearing voices Present Illness: Pt is a 37 yo male biba to [place] ED last evening with reports of auditory hallucinations and SI. Pt states he is having thoughts of hanging himself. Pt has a hx of prior SI and self-cutting. Pt reports increased depression, anxiety, AV and cocaine relapse since running out of his medications. Pt denies HI. Pt reports he has been taking risperdal and cymbalta until last . Pt reports he was also prescribed [place] but stopped taking it because he believes it is causing his legs to swell. Pt had been recently inpatient on [facility] and discharged November 26 with a plan to receive tx at [place]. Pt reports not following plan and has had difficulty finding a provider. pt reports making attempts to receive tx at [facility] but reports arriving for an 8am appt on December 27 but no one was there. Collateral provided by [facility] indicate they are not open at that time but pt did have an appt December 27 but pt failed to attend. They weren't able to reschedule with him until later in January. Pt has a long hx of inpatient tx and has had prior diagnosis of schizoaffective and bipolar d/o. Pt urine tox screen was positive for cocaine. Pt reports he relapsed on Saturday and was first use in about 1 month. Pt is currently on probation for burglary and has a hx of incarceration for same. Pt reports he is temporarily staying with friends but has no permanent residency. Pt presents as irritable, anxious and OX3. Case reviewed with Dr Jc. Recommendation for inpatient psychiatric treatment. Pt is in agreement with plan and has signed form for voluntary admission. Patient's Address: [place] [address] Other Phone Number: Who Do You Live With? Other (see notes) (stays with friends) Feel Safe Where You Live? Yes Feel Safe in Your Relationship Yes Marital Status: single Do You Have Children? Yes Ages? 4 Primary Language? Tajik Language(s) Spoken At Home: Tajik, Occitan Family/Informants Interviewed: collateral provided by pt aunt Zuri [phone] and [facility] [phone]. Allergies - Coded Allergies: azithromycin (UNKNOWN 11/23/17) chlorpromazine (From THORAZINE) (UNKNOWN 11/23/17) haloperidol (From HALDOL) (UNKNOWN 11/23/17) trazodone (UNKNOWN 11/23/17) Current Medications - Scheduled Medications Apixaban (Eliquis) 5 MG TABLET 1 TAB PO BID blood thinner #28 TAB Prescribed by Jacky Jc MD on 11/26/17 Buprenorphine HCl/Naloxone HCl (Suboxone 12 MG-3 MG Sl Film) 12 MG-3 MG FILM 1 STR SL BID CHRONIC PAIN/SUBSTANCE ABUSE (Reported) Entered as Reported by Gretchen Mueller on 03/05/172119 Duloxetine Hydrochloride (Cymbalta) 30 MG CAPSULE. 1 CAP PO DAILY depression /pain #14 CAP Prescribed by Jacky Jc MD on 11/26/17 Esomeprazole (Nexium) 40 MG CAPSULE.DR 1 CAP PO DAILY GASTRITIS #14 CAP Prescribed by Jacky Jc MD on 11/26/17 Furosemide 20 MG TABLET 1 MG PO 0730,1630 water retension/blood pressure #28 TAB Prescribed by Jacky Jc MD on 11/26/17 Gabapentin 400 MG CAPSULE 1 CAP PO TID NEUROPATHY #42 CAP Prescribed by Jacky Jc MD on 11/26/17 [place] Carbonate 150 MG CAPSULE 1 CAP PO 0800,2000 mood stabilizer #28 CAP Prescribed by Jacky Jc MD on 11/26/17 Loratadine 10 MG TABLET 1 TAB PO DAILY allergies #14 TAB Prescribed by Jacky Jc MD on 11/26/17 Metformin HCl 1,000 MG TABLET 1 TAB PO BID diabetes #28 TAB Prescribed by Jacky Jc MD on 11/26/17 Multivitamin (One Daily Multivitamin) 1 EACH TABLET 1 TAB PO DAILY vitamin supplement #14 TAB Prescribed by Jacky Jc MD on 11/26/17 Risperidone (Risperdal) 1 MG TABLET 1 TAB PO SEE ADMIN CRITERIA psychosis/ voices #42 TAB Prescribed by Jacky Jc MD on 11/26/17 Sucralfate (Carafate) 1 GRAM TABLET 1 TAB PO TIDAC abdominal pain #42 TAB Prescribed by Jacky Jc MD on 11/26/17 Scheduled PRN Medications Albuterol Sulfate (Proair Hfa) 90 MCG HFA.AER.AD 2 PUF INH Q4-6 PRN PRN ASTHMA #1 INHAL Prescribed by Rickey Suarez on 09/25/17 Nicotine (Nicorelief) 2 MG GUM 1 GUM PO Q2P PRN nicotine craving #100 GUM Prescribed by Jacky Jc MD on 11/26/17 Ondansetron (Zofran Odt) 4 MG TAB.RAPDIS 1 TAB SL TID PRN nausea #10 TAB Prescribed by Jacky Jc MD on 11/26/17 Consequences of Psych Med Use: pt reports running out of meds and having no current provider. Toxicology Screen Completed? Yes Results: positive Symptoms of Use: positive cocaine use Past History Past Medical History Medical History: Depression, Schizophrenia Past Surgical History Surgical History none Abuse/Trauma History Trauma History/Current Trauma: Denies Legal History Current Legal Status: on probation Have you ever been arrested? Yes Psychosocial History Strengths/Capabilities: pt is seeking help Physical Limitations (Interventions): back pain/injury 2010 Psychiatric Treatment History Psych Treatment Psychiatric Treatment Yes Inpatient Treatment Yes Outpatient Treatment Yes Location of Treatment [facility]; [facility] Reason for Treatment bipolar depression Dates of Treatment most recent inpatient [facility] November 2017 Response to Treatment pt has difficulty maintaining aftercare treatment Diagnosis by History: Schizophrenia Bipolar Depression Risk Factors: chronic/serious med cond., high anxiety/distress, SA/MH hospitalized, substance abuse, poor impulse control, male, limited support Substance Use/Abuse History Drug Use/Abuse minimum 12mo Hx Substances Used/Abused Yes Substance Used/Abused Cocaine Last Used Saturday How much used/taken $60 worth How often 1st use past month Substance Abuse Treatment Substance Abuse Treatment Past Substance Abuse TX Yes Inpatient Treatment Yes Outpatient Treatment Yes Location of Treatment [place] Reason for Treatment etoh Dates of Treatment unsure Response to Treatment pt reports occasional etoh use. Sexual History Sexual Concerns: none reported Education History Highest Level of Education: not sure Preferred Learning Style: visual, auditory, experiential Current Mental Status Mental Status Orientation: Person, Place, Situation Affect: Anxious, Depressed Speech: WNL Neuro-vegetative: Concentration Poor, Energy Decreased, Helpless, Sleep Disturbance Appearance Appearance- Dress/Hygiene: hospital scrubs; unkempt; disheveled; lethargic Behaviors Thought Process: Irrational Thought Content: WNL Memory: WNL Insight: Fair SI/HI Risk Assessment - Minimum 6mo History- Past Suicidal Ideation/Attempts Yes Current Suicidal Ideation/Att Yes Past Homicidal Ideation/Att: No Current Homicidal Ideation/Attempts No Degree of Intent: Thoughts/No Intent Danger To: Self Gravely Disabled: Lack of Insight, Poor Impulse Control, Poor Judgment Risk Factors: chronic/serious med cond., high anxiety/distress, SA/MH hospitalized, substance abuse, poor impulse control, male, limited support Lethality Ratin Needs/Init TX Plan/Goals: Psychiatric evaluation medication assessment Individual, Family and Group Meetings Coordinated Discharge Planning AUDIT-C Questionnaire: AUDIT-C Questionnaire: Response Value ETOH use in the past year Monthly or less 1 # drinks typical/day 1 or 2 0 6 or > drinks per occasion Never 0 Total 1 DSM5/PS Stressors/Medical Prob Diagnosis' (DSM 5, Stressors, Medical): Schizoaffective D/O depressed F25.1 Cocaine Use D/O F12.20 no current tx homeless diabetes chronic back pain Current GAF: 25 Comments: pt reports AH telling him to hang himself. Off medications. Difficulty scheduling an appt at [facility]
[2018-01-20 19:12] VITALS: BP 116/57
[2018-01-20 19:45] VITALS: BP 116/57
[2018-01-21 08:06] VITALS: BP 129/72
[2018-01-21] MEDS ORDERED: FUROSEMIDE20 M1 PO (12:27)
[2018-01-21] MEDS ORDERED: NEXIUM40 M1 PO (12:27)
[2018-01-21] MEDS ORDERED: CYMBALTA30 M1 PO (12:27)
[2018-01-21] MEDS ORDERED: ELIQUIS5 M1 PO (12:27)
[2018-01-21] MEDS ORDERED: NICOTINE PATCH1 EAC3 TOP (12:27)
[2018-01-21] MEDS ORDERED: ONE DAILY MULT1 EAC2 PO (12:27)
[2018-01-21] MEDS ORDERED: RISPERDAL1 M1 PO (12:27)
[2018-01-21] MEDS ORDERED: NYSTATIN15 G1 TOP (12:27)
[2018-01-21] MEDS ORDERED: GABAPENTIN400 M2 PO (12:27)
[2018-01-21] MEDS ORDERED: CARAFATE1 G1 PO (12:27)
[2018-01-21] MEDS ORDERED: ZOFRAN ODT4 M1 SL (12:27)
[2018-01-21] MEDS ORDERED: PROAIR HFA8.5 GM INH (12:27)
[2018-01-21] MEDS ORDERED: METFORMIN HCL1000 M1 PO (12:27)
[2018-01-21] MEDS ORDERED: LORATADINE10 M1 PO (12:27)
[2018-01-21] MEDS ORDERED: SUBOXONE 12 MG1 EACH SL (12:35)
--- NOTE | 2018-01-21 12:47 | Patient Discharge Instructions ---
Psych Discharge Inst General Discharge Information Reason for Admission: Auditory hallucinations and suicidal ideation. Psy Discharge Primary Diag+ Schizoaff d/o depressed Psy Discharge Secondary Diag+ Malingering Cocaine use disorder Opiate use do on Suboxne Hx pulmonary embolus Hx DVT Hypertension GERD Chronic back pain Diabetes C/o leg edema Summary Tests/Major Procedures Lab ALT 36 U/L 01/19/18 1845 AST 20 U/L 01/19/18 1845 BUN 12 mg/dL 01/19/18 1845 Calcium 9.1 mg/dL 01/19/18 1845 Carbon Dioxide 23 mmol/L 01/19/18 1845 Chloride 107 mmol/L 01/19/18 1845 Creatinine 0.8 mg/dL 01/19/18 1845 Estimated GFR > 60 ml/min 01/19/18 1845 Glucose 127 mg/dL H 01/19/18 1845 Potassium 4.1 mmol/L 01/19/18 1845 Sodium 141 mmol/L 01/19/18 1845 TSH &T3 &Free T4 Intrp 0.292 uIU/mL 01/19/18 1845 D-Dimer High Sensitivty 279 ng/ml H 01/19/18 1845 Hct 39.1 % L 01/19/18 1843 Hgb 13.1 G/DL L 01/19/18 1843 Monocytes % 12.9 % H 01/19/18 1843 Plt Count 264 /CUMM 01/19/18 1843 RBC 4.46 /CUMM L 01/19/18 1843 WBC 13.6 /CUMM H 01/19/18 1843 [place] < 0.2 mmol/L L 01/19/18 1845 Serum Alcohol < 10.0 MG/DL 01/19/18 1845 Urine Cocaine Screen > 1000 NG/ML H 01/19/18 1840 Studies Pending at DC: None. Patient Instructions Contact Information Your Psychiatrist on [facility] was Jacky Jc MD * If you are experiencing an emergency related to this hospitalization, please call [phone] to contact the treating psychiatrist or the psychiatrist-on- call. * To Request a copy of your medical records, please contact the Medical Records Department at [phone]. * To request results of studies pending at the time of discharge, please call [phone]. * Continue your Medications until directed to stop by your Healthcare provider. General Medication Information Please continue to take your new medications and your continued home medications , unless otherwise indicated on your discharge medication list, or unless directed by your MD or TUNNEL ELASTIC OPERATOR CHAINSTITCH to stop them. Special Instructions Diet Diabetic Activity As Tolerated Other Inst/Recommendations Stay away from drugs and alcohol. SeePCP for med cond's/labs/"spots@lungs" - Tobacco Use Treatment Offered Post DC Medications Offered: Script Given-See Med List Post DC Tobacco Treatment Plan: [facility] Program Appt Date: 01/29/18 Program Appt Time: 1600 - EtOH/Drug Use D/O Treatment Offered Post DC Medications Offered: Med Not Indicated for D/O Post DC EtOH/SubAbuse TX Plan: Other SubAbuse/Dual Pgm (Suboxone/Dr. Subramanian @ [facility] ) Program Appt Date: 01/21/18 (TBA) Program Appt Time: 1245 (TBA) Metabolic Screening () Not Applicable, patient not on a neuroleptic. OR () Patient on a neuroleptic(s) . Enter below results for Hemoglobin A1C, and lipid panel if obtained during the last 365 days. BMI: 39.100 Blood Pressure: 129/72 Laboratory Results From [facility] E[facility] (If applicable): [x] Lab Cholesterol 174 MG/DL 11/21/17 2235 Cholesterol/HDL Ratio 4 % 11/21/17 2235 HDL Cholesterol 40 mg/dL 11/21/17 2235 Hemoglobin A1c 8.9 % H 11/21/17 2235 LDL Cholesterol, Calc 107 mg/dL 11/21/17 2235 Triglycerides 138 mg/dL 11/21/17 2235 Advance Directives Does the Patient have Medical Advance Directives Yes/Copy on file Does Pt have Psychiatric Advance Directives? No/Refused further info Does Patient have a Designated Surrogate Decision Maker: No Information About Psychiatric Advance Directives Provided? Yes Discharge Plan Post Hospital Treatment Plan: Patient to find housing. Patient being referred to Dr. Subramanian @ [facility] for Suboxone. Patient refusing to sign release for [facility]. Patient to consider [facility]. Patient to consider return to [facility], where he is an active patient.
--- NOTE | 2018-01-21 13:15 | Event Note ---
Event Note Event Note: Went down to see the patient to perform history and physical. Patient refuses to talk and refused to be examined. Tried to convince the patient to provide some information for the history and physical but despite multiple people telling him including nursing staff at Inpatient Psychiatry he continues to refuse. The nursing staff at Inpatient Psychiatry had discussed this with Dr. Jc. Unfortunately patient did not allow me to perform history and physical at this time.
--- NOTE | 2018-01-21 13:40 | SOCIAL WORKER SOCIAL HX PSYCH ---
Social History Basic Assessment Insurance Authorization: Insurance #1: Insurance name: [employer] Phone number: Policy number: [id number] Group number: Authorization number: Curr Source of Income/Entitlements: disability Primary Care Physician: Patient's PCP: Ortiz Andersen MD PCP's Primary Language? Mosotho Language(s) Spoken At Home: Mosotho, French Living Situation Other Living Arrangement: homeless living w/friend Feel Safe Where You Are Living Yes Feel Safe in Relationships? Yes Allergies - Coded Allergies: azithromycin (UNKNOWN 11/23/17) chlorpromazine (From THORAZINE) (UNKNOWN 11/23/17) haloperidol (From HALDOL) (UNKNOWN 11/23/17) trazodone (UNKNOWN 11/23/17) Current Medications - Scheduled Medications Apixaban (Eliquis) 5 MG TABLET 1 TAB PO BID blood thinner #28 TAB Prescribed by Jacky Jc MD on 01/21/18 Buprenorphine HCl/Naloxone HCl (Suboxone 12 MG-3 MG Sl Film) 12 MG-3 MG FILM 1 STR SL TID opiate addiction (Reported) Entered as Reported by Gretchen Mueller on 03/05/17 2120 Duloxetine Hydrochloride (Cymbalta) 30 MG CAPSULE.DR 1 CAP PO DAILY depression /pain #14 CAP Prescribed by Jacky Jc MD on 01/21/18 Esomeprazole (Nexium) 40 MG CAPSULE.DR 1 CAP PO DAILY GASTRITIS #14 CAP Prescribed by Jacky Jc MD on 01/21/18 Furosemide 20 MG TABLET 1 MG PO 0730,1630 water retension/blood pressure #28 TAB Prescribed by Jacky Jc MD on 01/21/18 Gabapentin 400 MG CAPSULE 1 CAP PO TID NEUROPATHY #42 CAP Prescribed by Jacky Jc MD on 01/21/18 Loratadine 10 MG TABLET 1 TAB PO DAILY allergies #14 TAB Prescribed by Jacky Jc MD on 01/21/18 Metformin HCl 1,000 MG TABLET 1 TAB PO BID diabetes #28 TAB Prescribed by Jacky Jc MD on 01/21/18 Multivitamin (One Daily Multivitamin) 1 EACH TABLET 1 TAB PO DAILY vitamin supplement #14 TAB Prescribed by Jacky Jc MD on 01/21/18 Nicotine (Nicotine Patch) 21 MG/24 HOUR PATCH.TD24 1 PAT TOP DAILY smoking cessation #30 PAT Prescribed by Jacky Jc MD on 01/21/18 Risperidone (Risperdal) 1 MG TABLET 1 TAB PO SEE ADMIN CRITERIA psychosis/ voices #42 TAB Prescribed by Jacky Jc MD on 01/21/18 Sucralfate (Carafate) 1 GRAM TABLET 1 TAB PO TIDAC abdominal pain #42 TAB Prescribed by Jacky Jc MD on 01/21/18 Scheduled PRN Medications Albuterol Sulfate (Proair Hfa) 90 MCG HFA.AER.AD 2 PUF INH Q4-6 PRN PRN ASTHMA #1 INHAL Prescribed by Jacky Jc MD on 01/21/18 Nystatin 100,000 UNIT/GRAM CREAM..G. 1 DOUG TOP BID PRN RASH #1 TUBE Prescribed by Jacky Jc MD on 01/21/18 Ondansetron (Zofran Odt) 4 MG TAB.RAPDIS 1 TAB SL TID PRN nausea #10 TAB Prescribed by Jacky Jc MD on 01/21/18 Discontinued Medications [place] Carbonate 150 MG CAPSULE 1 CAP PO mood stabilizer #28 CAP Discontinued reason: didn't lik Nicotine (Nicorelief) 2 MG GUM 1 GUM PO Q2P PRN nicotine craving #100 GUM Discontinued reason: Changed to different med Consequences of Psych Med Use: pt reports he recently ran out of medications preceded cocaine relapse Past History Past Medical History Neurological: NONE EENT: NONE Cardiovascular: hypertension Respiratory: pulmonary embolism Gastrointestinal: GERD Hepatic: NONE Renal: NONE Musculoskeletal: chronic back pain Psychiatric: anxiety, bipolar disease, depression, schizo affective disorder, substance abuse, Intermittent explosive disorder Endocrine: diabetes Blood Disorders: DVT, PE Cancer(s): NONE FAST FOOD COOK/Reproductive: NONE Past Surgical History Surgical History: non-contributory /Family History Place/Country of Origin: [place] Childhood Family Constellation: Parents are Primary Childhood Caretakers: father Family Life During Childhood: Pt unwilling to elaborate on his childhood DCF Involvement? No Relationship w/Mother: Mom is Relationship w/Father: Father 4 years ago . Any Sibling(s)? No Relationship w/Friends: isolated Abuse/Trauma History Trauma History/Current Trauma: Denies Legal History Legal Guardian/Address/Phone: self Current Legal Status: on probation Have you ever been arrested Yes Hx of Adult Legal Charges? Yes If Yes: burglary Psychosocial History Primary Support System: aunt (aunt Zuri) Strengths/Capabilities: pt is seeking help Physical Limitations (Interventions): back pain/injury 2011 Last Physical: unknown ADL Limitations: unkempt hygiene [place]/Social/Peer Relations limited Meaningful Activities: Pt unwilling to share Childhood Presybeterian: no judaism stated Current Voodoo Affiliation: no judaism stated Is Spirituality Important to You? not sure Patient's Ethnicity: Egyptian Cultural/Ethnic Issues: none reported Are There Developmental Issues? No Milestones Achieved: fine motor, gross motor Psychiatric Treatment History Psych Treatment Inpatient Treatment Yes Outpatient Treatment Yes Location of Treatment [facility]; [facility] Reason for Treatment bipolar depression Dates of Treatment most recent inpatient [facility] November 2017 Response to Treatment pt has difficulty maintaining aftercare treatment Diagnosis: Schizophrenia Bipolar Depression Risk Factors: chronic/serious med cond., high anxiety/distress, SA/MH hospitalized, substance abuse, poor impulse control, male, limited support Substance Use/Abuse History Drug Use/Abuse:Min 12 mo hx Substance Used/Abused Cocaine Last Used Saturday How much used/taken $60 worth How often 1st use past month Have You Ever Attended AA? No Symptoms of Use: positive cocaine use Substance Abuse Treatment Substance Abuse Treatment Inpatient Treatment Yes Outpatient Treatment Yes Location of Treatment [place] Reason for Treatment etoh Dates of Treatment unsure Response to Treatment pt reports occasional etoh use. Sexual History Sexual Concerns: none reported Education History Highest Level of Education: not sure Highest Grade Completed: unknown Preferred Learning Style: visual, auditory, experiential HX of Learning Difficulties: None reported Barriers to Learning: None reported Special Communication Needs: None reported Employment History Employment Disability Not in Labor Force: Disabled Comments: Pt not willing to share past jobs he has had. History Have You Been in The ? No Current Mental Status Mental Status Orientation: Person, Place, Situation Affect: Anxious, Depressed Speech: WNL Neuro-vegetative: Concentration Poor, Energy Decreased, Helpless, Sleep Disturbance Appearance Appearance- Dress/Hygiene: hospital scrubs; unkempt; disheveled; lethargic Behaviors Thought Process: Irrational Thought Content: WNL Memory: WNL Insight: Fair SI/HI Risk Assessment Past Suicidal Ideation/Attempts Yes Current Suicidal Ideation/Att Yes Past Homicidal Ideation/Att: No Current Homicidal Ideation/Attempts No Degree of Intent: Thoughts/No Intent Danger To: Self Gravely Disabled: Lack of Insight, Poor Impulse Control, Poor Judgment Lethality Ratin - Conclusion and Recommendations for treatment - and discharge planning Summary: pt is irritable; complaining about medications and wanting changes. Pt reports not liking how risperdol and lithium make him feel. Pt reports he is homeless and has friends that he stays with for brief periods. Pt planning to resume tx at [facility] following [facility] treatment.
--- NOTE | 2018-01-21 15:04 | CPS PROVIDER INIT ASMT PSYCH ---
Psychiatric Admission Respiratory Support Technician's Note Reviewed: Yes Patient Seen and Examined: Yes (Seen with Mayda Cevallos LCSW.) Identifying Information: 37 yo SHM with hx psychosis and mood disorder, on Suboxone, admitted on 01/20/18. Urine drug screen + for cocaine on presentation. Chief Complaint: AH, SI to hang self. Reaction to Hospitalization: "Need to go inpatient to fix my Risperdal." History of Present Illness Onset of Illness: Chronic. Likely ran out of meds. Missed [facility] appointment 12/27/17. Last filled Suboxone 01/09/18, 7 days' supply. Likely ran out of Suboxone. Circumstances Leading to Admission: Please see above. Claims Risperdal lowered his HR and inpeded blood flow out of legs. Likely edema was due to being off of Lasix. Claims Risperdal caused restless legs. Was staying with friends and was kicked out on . Was angry and drank. Relapsed with cocaine on Saturday. Reports having AH "somewhat" and states he won't comment about details. States he had SI when he came in. Does not endorse SI now. Stressors: no friends, no supports. Problem(s) Justifying Need for Admission: Ran out of medications. Reports SI and AH. Other HPI: Sleep: okay last night. Appetite: overeats when depresssed. Energy: finds Cymbalta somewhat helpful. Case and treatment plan discussed in team meeting. Staff reports that the patient would not discuss SI. Wanted to eat in the middle of the night, claiming blood sugar was low but refused to allow staff to do a fingerstick. Past Psychiatric History Past Diagnosis(es)- if any: Schizoaffective d/o, depressed. Cocaine use d/o. Opiate use d/o on Suboxone. Hx pulmonary embolism. Hx of DVT. Hx sinus congestion. Hypertension. GERD. Chronic back pain. Diabetes. Past Precipitating Factors- if any: Off Risperdal 2-3 days. Case closed at [facility]. Wasn't taking Cymbalta. Had not started lithium. Using cocaine. - Include inpatient and outpatient treatment Treatment History: Reports he wasn't seen at [facility] since last discharge. Inpatient at , [facility] and [facility]. [facility] in 2004 or 2007, [facility], [facility], [facility] and [facility]. Past treatment at [facility]. History of Suicide Attempts or Gestures On last admission, reported a hx of a couple of suicide attempts but was guarded as to details. Substance Abuse History: Tobacco @ 1 ppd. Patient told me he drank on . Drug screen + cocaine. hothouse worker noted patient used $60 worth on Saturday. On Suxoxone. Urine + for buprenorphine. Allergies: Coded Allergies: azithromycin (UNKNOWN 11/23/17) chlorpromazine (From THORAZINE) (UNKNOWN 11/23/17) haloperidol (From HALDOL) (UNKNOWN 11/23/17) trazodone (UNKNOWN 11/23/17) Home Med List: Please see CMR. - Include any medical condition(s) that may - impact the patient's recovery/remission Past Medical History: Obese. 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 Mood disorder. Currently on Suboxone. Suicide attempts. Psychosis History of MRSA: Yes History of VRE: No History of CDIFF: No Isolation History: Standard Tetanus Vaccine: 11/23/17 Surgical History Surgical History: none Psychiatric Family/Social Hx Family History Psychiatric Illness: Mother was on Depakote. Father was on Risperdal and possible Zoloft. Substance Use: Mother and father both used heroin and alcohol. Suicides: A paternal uncle suicided. Social History Living Situation: Homeless. Please see above. Significant Relationships (family/friends): Reports he has no supports. Education: Unknown. Vocation/Occupation: Unknown. Legal: On probation for burglary. Incarcerated twice for chages related to burglary, larceny and possession of narcotics. Healthly Behaviors Screening Tobacco Screening Tobacco Use from ED Docu: Current Daily Use Daily Tobacco Use Amount/Type: => 5 Cigarettes daily - If tobacco counseling indicated - the following topics are required. - #1 Recognizing dangerous situations. - #2 Coping Skills. - #3 Basic information about quitting. Status of Tobacco Cessation Counseling: #1, #2 AND #3 Completed Cessation Med Status Nicotine Patch Ordered Alcohol Screening - ETOH screen POS if BAL >=80 or Audit-C>= M4/F3 Audit-C Score from Diag Assess: 1 Blood Alcohol Level: Laboratory Tests 01/19 1845 Toxicology Serum Alcohol (<10 MG/DL) < 10.0 Alcohol Use Screening Results: Neg per Audit C &/or BAL - If ETOH counseling indicated - the following topics are required. - #1 Express concern about the patient's - drinking at unhealthy levels, include informing - of national norms for moderate drinking: - men <= 14 drinks/week, max 4 drinks/occasion - women <= 7 drinks/week, max 3 drinks/occasion - #2 Providing feedback, including linking alcohol to - negative physical effects (liver injury, hypertension) - negative emotional effects (relationship problems and - depression) - negative occupational consequences (reduced work - performance) - #3 Advising the patient to abstain from alcohol or - to drink below national norms for moderate drinking - (as listed above). Status of ETOH Use Counseling: N/A B/C NO ETOH Use Metabolic Screening - Screen if on a Neuroleptic Medication - Metabolic screening should include: - Blood Pressure, BMI, Glucose or Hgb A1c, & a - Lipid profile from within the past 365 days. Metabolic Screening () Not Applicable, patient not on a neuroleptic. OR () Patient on a neuroleptic(s) . Enter below results for Hemoglobin A1C, and lipid panel if obtained during the last 365 days. BMI: 39.100 Blood Pressure: 129/72 Laboratory Results From [facility] (If applicable): [x] Lab Cholesterol 174 MG/DL 11/21/172234 Cholesterol/HDL Ratio 4 % 11/21/172234 HDL Cholesterol 40 mg/dL 11/21/172234 Hemoglobin A1c 8.9 % H 11/21/172234 LDL Cholesterol, Calc 107 mg/dL 11/21/172234 Triglycerides 138 mg/dL 11/21/172234 Exam and Plan Mental Status Examination Ambulation Status: Gait unremarkable. Appearance: Overweight, bearded male in blue paper scrubs. Attitude towards examiner: Argumentative, uncooperative. Engages in splitting. Will not answer most questions directly. Psychomotor activity: There is no psychomotor agitation or retardation. Behavior: Oppositional. Manipulative. Quality of speech: Normal in volume, rate and tone. Affect: Blunted. Mood: Claims to be anxious. Suggesting he is depressed. Suicidal Ideation: States he had SI on presentation. Does not endorse SI now. Homicidal Ideation: Denies HI. Hallucinations: Reports AH but vague as to content. Denies VH but reports he saw white smoke from blurry vision earlier. Paranoid/Delusional Material: Seems somewhat paranoid as to [facility]'s motives. States they asked for records from [facility] but then could not prescribe him Suboxone. Difficulties with thought organization: I believe the patient's thinking is organized but he seems avoidant about many questions. Insight: Poor. Judgment: Seems manipulative. Orientation: Ox3 except gave the date as 01/21/17 and corrected to 18 on prompting. Cognition: Grossly intact. Memory Function: Grossly intact. Remembered me from last admission. Estimate of intellectual functioning: Average. Assets/Strengths Patient Identified Assets/Strengths: Trying to focus. Impression/Plan Impression and Plan: Patient is here after a cocaine crash in the context of being kicked out of his housing and being off medications. - Include all active medical diagnosis that require tx DSM 5 Diagnosis(es): Schizoaffective d/o, depressed. Malingering. Cocaine use d/o. Opiate use d/o on Suboxone. Hx pulmonary embolism. Hx of DVT. Hypertension. GERD. Chronic back pain. Diabetes. Suspect antisocial personality. - Initial Tx Plan for Active Psych & Medical Conditions Treatment Plan: The patient is treatment non-compliant here. He refuses to sign releases for communication with [facility]. He states he wants to be off Risperdal but is unwilling to have a meaningful discussion about alternative antipsychotics, such as Zyprexa or Trilafon. Does not like lithium. The patient will be discharged today to the community. He is not endorsing SI now and in my professional opinion, does not pose a risk of imminent danger to self or others. He is not concerned about being homeless, stating the weather is warm. He is being referred to Dr. Subramanian at [facility] for Suboxone. He is being referred back to [facility]. - Factors that would help patient function - in a less restrictive setting. Factors: Not suicidal.
--- NOTE | 2018-01-21 15:10 | DISCHARGE SUMMARY REPORT-PSYCH ---
Visit Information Visit Dates/Diagnosis' Admission Date: 01/20/18 Discharge Date: 01/21/18 Reason for Admission: Auditory hallucinations and suicidal ideation. Psy Discharge Primary Diag: Schizoaff d/o depressed Psy Discharge Secondary Diag: Malingering Cocaine use disorder Opiate use do on Suboxne Hx pulmonary embolus Hx DVT Hypertension GERD Chronic back pain Diabetes C/o leg edema Hospital Course Significant Lab Findings: Lab Buprenorphine & Metab POSITIVE 01/19/18 184 Lab ALT 36 U/L 01/19/18 1845 AST 20 U/L 01/19/18 1845 BUN 12 mg/dL 01/19/18 1845 Calcium 9.1 mg/dL 01/19/18 184 Carbon Dioxide 23 mmol/L 01/19/18 1845 Chloride 107 mmol/L 01/19/18 1845 Creatinine 0.8 mg/dL 01/19/18 184 Estimated GFR > 60 ml/min 01/19/18 184 Glucose 127 mg/dL H 01/19/18 1845 Potassium 4.1 mmol/L 01/19/18 1845 Sodium 141 mmol/L 01/19/18 1845 TSH &T3 &Free T4 Intrp 0.292 uIU/mL 01/19/18 1845 D-Dimer High Sensitivty 279 ng/ml H 01/19/18 1845 Hct 39.1 % L 01/19/18 1843 Hgb 13.1 G/DL L 01/19/18 1843 Monocytes % 12.9 % H 01/19/18 1843 Plt Count 264 /CUMM 01/19/18 1843 RBC 4.46 /CUMM L 01/19/18 1843 WBC 13.6 /CUMM H 01/19/18 1843 [place] < 0.2 mmol/L L 01/19/18 1845 Serum Alcohol < 10.0 MG/DL 01/19/18 1845 Urine Cocaine Screen > 1000 NG/ML H 01/19/18 1840 Course Complications: None. Consultations: The patient refused admission H&P. Allergies: Coded Allergies: azithromycin (UNKNOWN 11/23/17) chlorpromazine (From THORAZINE) (UNKNOWN 11/23/17) haloperidol (From HALDOL) (UNKNOWN 11/23/17) trazodone (UNKNOWN 11/23/17) Hospital Course/TX Response: The patient was monitored on the unit for safety, psychosis and mood disorder. He was treatment-resistant, oppositional, manipulative and generally uncooperative with staff. He did not endorse SI and was discharged to the community. From my psychiatric admission assessment of 01/21/18: "Treatment Plan: The patient is treatment non-compliant here. He refuses to sign releases for communication with [facility]. He states he wants to be off Risperdal but is unwilling to have a meaningful discussion about alternative antipsychotics, such as Zyprexa or Trilafon. Does not like lithium. The patient will be discharged today to the community. He is not endorsing SI now and in my professional opinion, does not pose a risk of imminent danger to self or others. He is not concerned about being homeless, stating the weather is warm. He is being referred to Dr. Subramanian at [facility] for Suboxone. He is being referred back to [facility]." Discharge HBIPS - Tobacco Use Treatment Offered Post DC Medications Offered: Script Given-See Med List Post DC Tobacco Treatment Plan: [facility] Appt Date: 01/29/18 Program Appt Time: 1600 - EtOH/Drug Use D/O Treatment Offered Post DC Medications Offered: Script Given-See Med List (Suboxone) Post DC EtOH/SubAbuse TX Plan: Other SubAbuse/Dual Pgm (Dr. Subramanian @ [facility], [facility]) Program Appt Date: 02/11/18 Program Appt Time: 1000 Metabolic Screening - Screen if on a Neuroleptic Medication - Metabolic screening should include: - Blood Pressure, BMI, Glucose or Hgb A1c, & a - Lipid profile from within the past 365 days. Metabolic Screening () Not Applicable, patient not on a neuroleptic. OR () Patient on a neuroleptic(s) . Enter below results for Hemoglobin A1C, and lipid panel if obtained during the last 365 days. BMI: 39.100 Blood Pressure: 129/72 Laboratory Results From [facility] (If applicable): [x] Lab Cholesterol 174 MG/DL 11/21/172234 Cholesterol/HDL Ratio 4 % 11/21/172234 HDL Cholesterol 40 mg/dL 11/21/172234 Hemoglobin A1c 8.9 % H 11/21/172234 LDL Cholesterol, Calc 107 mg/dL 11/21/172234 Triglycerides 138 mg/dL 05/03/18 2235 Discharge Instructions General Discharge Information Multiple Neuroleptics: ([x]) Not Applicable OR Document below three failed attempts at monotherapy, or a plan to taper to monotherapy, or augmentation of Clozapine. () Discharge Diet Diabetic Discharge Activity As Tolerated DC Disposition: Patient to secure his own housing. Referrals Ordered Referrals Provider Referral 02/11/18 For Groups: [facility] Multiple Locations [facility] Practice appt. with Dr. Subramanian 02/11/18 10am [address] [place], [place] [id number] [facility] [address] [id number] Patient will follow up with [facility] on his scheduled intake appt. for this month Call [phone] [address] [id number] If there are any problems, please call to schedule an intake at [facility] [phone] Prescriptions Stop taking the following medications: Nicotine (Nicorelief) 2 MG GUM ORAL EVERY 2 HOURS NEEDED as needed for nicotine craving Qty = 100 [place] Carbonate ([place] Carbonate) 150 MG CAPSULE ORAL Qty = 28 Continue taking these medications: Buprenorphine HCl/Naloxone HCl (Suboxone 12 MG-3 MG Sl Film) 12 MG-3 MG FILM 1 Strip SUBLINGUAL THREE TIMES DAILY Comments: Last Taken: SUBOXONE 1.5 TABS 11/26/17 Time:12:15 PM Loratadine (Loratadine) 10 MG TABLET 1 Tablet ORAL DAILY Qty = 14 Comments: Last Taken:01/21/18 Time:0800 This prescription has been renewed Albuterol Sulfate (Proair Hfa) 90 MCG HFA.AER.AD 2 Puff Inhale through mouth EVERY 4-6 HOURS NEEDED as needed for ASTHMA Qty = 1 Comments: Last Taken:NOT TAKEN DURING THIS STAY Time: This prescription has been renewed Apixaban (Eliquis) 5 MG TABLET 1 Tablet ORAL TWICE DAILY Qty = 28 Comments: Last Taken:01/21/18 Time:0800 This prescription has been renewed Gabapentin (Gabapentin) 400 MG CAPSULE 1 Capsule ORAL THREE TIMES DAILY Qty = 42 Comments: Last Taken:01/21/18 Time:0800 This prescription has been renewed Duloxetine Hydrochloride (Cymbalta) 30 MG CAPSULE.DR 1 Capsule ORAL DAILY Qty = 14 Comments: Last Taken:01/21/18 Time:0800 This prescription has been renewed Risperidone (Risperdal) 1 MG TABLET 1 Tablet ORAL SEE INSTRUCTIONS Qty = 42 Instructions: Take 1 po every AM and 2 po QHS Comments: Last Taken:11/26/17 Time:10:48 AM This prescription has been renewed Furosemide (Furosemide) 20 MG TABLET 1 Milligram ORAL 0730,1630 Qty = 28 Comments: Last Taken:01/21/18 Time:0900 This prescription has been renewed Ondansetron (Zofran Odt) 4 MG TAB.RAPDIS 1 Tablet SUBLINGUAL THREE TIMES DAILY as needed for nausea Qty = 10 Comments: Last Taken:01/21/18 Time:0900 This prescription has been renewed Sucralfate (Carafate) 1 GRAM TABLET 1 Tablet ORAL 3 TIMES DAILY BEFORE MEALS Qty = 42 Comments: Last Taken:01/21/18 Time:0800 This prescription has been renewed Esomeprazole (Nexium) 40 MG CAPSULE.DR 1 Capsule ORAL DAILY Qty = 14 Comments: Last Taken:pRILOSEC given during hospitalization Time: This prescription has been renewed Metformin HCl (Metformin HCl) 1,000 MG TABLET 1 Tablet ORAL TWICE DAILY Qty = 28 Comments: Last Taken:01/21/18 Time:0900 This prescription has been renewed Multivitamin (One Daily Multivitamin) 1 EACH TABLET 1 Tablet ORAL DAILY Qty = 14 Comments: Last Taken:01/21/18 Time:0800 This prescription has been renewed Start taking the following new medications: Nicotine (Nicotine Patch) 21 MG/24 HOUR PATCH.TD24 1 Patch On the skin DAILY Qty = 30 No Refills Comments: Last Taken:01/21/18 Time:0900 Nystatin (Nystatin) 100,000 UNIT/GRAM CREAM..G. 1 Application On the skin TWICE DAILY as needed for RASH Qty = 1 No Refills Comments: Last Taken:01/20/18 Time:1000 Buprenorphine HCl/Naloxone HCl (Suboxone 12 MG-3 MG Sl Film) 12 MG-3 MG FILM 1 Film SUBLINGUAL THREE TIMES DAILY Qty = 42 No Refills Other Inst/Recommendations Stay away from drugs and alcohol. SeePCP for med cond's/labs/"spots@lungs" Studies Pending at Discharge None. Copies To: Moris MONTOYA,Mick Caballero
--- NOTE | 2018-01-21 15:29 | SOCIAL WORKER PROG NOTE PSYCH ---
Social Work Progress Note Progress Note Patient approached me in the [facility] this morning complaining of his heart rate dropping and leg swelling due to the Risperdal he is on. He asked what doctor he would be seeing and got upset when he heard that it was Dr. Jc. Complained of how he was treated last admission by the doctor and really didn't want to see him again. I encouraged him to look at this as a new experience and to start fresh. He asked if I would accompany him into the meeting with Dr. Jc. I told him that I would. A short time later Dr. cJ, [place], and I sat down together to discuss what his current symptoms were and what we could help with. He reported leg swelling which he believed to be caused by the Risperdal. Although Dr. Jc asked if he had run out of his Lasix, which he said he had a few days ago. He continued to advocate for the Risperdal to be changed. Dr. Jc asked if he was hearing voices? He said he was, but didn't want to comment on what he was hearing. He denied seeing anything, but commented to me earlier about seeing white smoke on the unit. He shared that he hadn't followed up on his aftercare since his last admission here on [facility] in November. He said he attempted to get into [facility], but showed up when they were not open and never saw anyone. He stated his appt. was rescheduled for later this month. I offered to help him get his intake sooner and contact Ginger at [facility] to discuss his intake. Asked if he would sign a release for me to do this, but he refused. He didn't offer any logical reason as to why he didn't want me to contact [facility] other than he didn't feel it was necessary for them to know his business and get his d/c info from here. Dr. Jc let him know that he wasn't being very treatment compliant. He also let him know that his stay here would be a shorter stay than last time. He was asked if he was homeless? He said he had a place to stay with a friend, but there is alot of yelling and drinking going on there. Later in the conversation he shared that he had given money to the people he was staying with and then days later they asked him for more money and essentially kicked him out. He reported no distress over his housing situation and stated "it's warm out now." He wanted to know about [facility] outpatient services as he seemed interested in potentially doing IOP here and connecting to Dr Subramanian at [facility] for Suboxone. I told him I could work on setting up an appt. with Dr. Subramanian. He was asked if he was suicidal today? He refused to answer the question and got irritated by the way the doctor was interviewing him. I asked if he was having thoughts of harming himself. He said "well I don 't have reasons to live." He feels he has had alot of losses. He was oriented x3, denied homicidality, sleeping okay. He asked if his Cymbalta could be increased? Dr. Jc offered to increase it to 40mg. Dr. Jc also offered to try him on Trilafon as an alternative to Risperdal. He seemed a little uneasy about the change.
--- NOTE | 2018-01-21 15:44 | SOCIAL WORKER PROG NOTE PSYCH ---
Social Work Progress Note Faxed Referral(s) Referred To: [facility] Documents sent: patient refused (patient refused to have info f)
[2018-01-22] MEDS ORDERED: KETOCONAZOLE15 GM TOP ×2 (15:16→15:17)
== END 2018-01-21 13:52 | DRG 750 ==
LOC: ERH 18:15 → ERHI 01-20 17:31 → CP SOUTH 01-20 17:31
PROVIDERS: Emergency Medicine
DX: F25.1 Schizoaffective disorder, depressive type (principal); Z76.5 Malingerer [conscious simulation]; F11.10 Opioid abuse, uncomplicated; F14.90 Cocaine use, unspecified, uncomplicated; I10 Essential (primary) hypertension; Z86.718 Personal history of other venous thrombosis and embolism
CPT/HCPCS: 80305; 80307; 93005; 93010; G0480; J3101; J3490

== ENCOUNTER 2018-01-22 13:48 | Emergency (ER) | payer OTHER ==
[~2018-01-22] VITALS: Ht 170.2 cm; Wt 113.4 kg
[~2018-01-22 13:48] MED LIST changes: +NICOTINE PATCH1 EAC3 TOP; +NYSTATIN15 G1 TOP
--- NOTE | 2018-01-22 15:14 | ED SKIN/ALLERGY COMPLAINT ---
History of Present Illness General Chief Complaint: Skin Rash/ Abcess Stated Complaint: RASH ON LEGS Source: patient, old records Exam Limitations: no limitations Vital Signs & Intake/Output Vital Signs & Intake/Output Vital Signs Date Time Temp Pulse Resp B/P B/P Pulse O2 O2 Flow FiO2 Mean Ox Delivery Rate 01/22 1410 98.0 67 20 123/72 97 Room Air Allergies Coded Allergies: azithromycin (UNKNOWN 11/23/17) chlorpromazine (From THORAZINE) (UNKNOWN 11/23/17) haloperidol (From HALDOL) (UNKNOWN 11/23/17) trazodone (UNKNOWN 11/23/17) Reconcile Medications Albuterol Sulfate (Proair Hfa) 90 MCG HFA.AER.AD 2 PUF INH Q4-6 PRN PRN ASTHMA Apixaban (Eliquis) 5 MG TABLET 1 TAB PO BID blood thinner Buprenorphine HCl/Naloxone HCl (Suboxone 12 MG-3 MG Sl Film) 12 MG-3 MG FILM 1 STR SL TID opiate addiction (Reported) Duloxetine Hydrochloride (Cymbalta) 30 MG CAPSULE.DR 1 CAP PO DAILY depression /pain Esomeprazole (Nexium) 40 MG CAPSULE.DR 1 CAP PO DAILY GASTRITIS Furosemide 20 MG TABLET 1 MG PO 0730,1630 water retension/blood pressure Gabapentin 400 MG CAPSULE 1 CAP PO TID NEUROPATHY Ketoconazole 2 % CREAM..G. 1 DOUG TOP DAILY TINEA apply to affected area(s) Loratadine 10 MG TABLET 1 TAB PO DAILY allergies Metformin HCl 1,000 MG TABLET 1 TAB PO BID diabetes Multivitamin (One Daily Multivitamin) 1 EACH TABLET 1 TAB PO DAILY vitamin supplement Nicotine (Nicotine Patch) 21 MG/24 HOUR PATCH.TD24 1 PAT TOP DAILY smoking cessation Nystatin 100,000 UNIT/GRAM CREAM..G. 1 DOUG TOP BID PRN RASH Ondansetron (Zofran Odt) 4 MG TAB.RAPDIS 1 TAB SL TID PRN nausea Risperidone (Risperdal) 1 MG TABLET 1 TAB PO SEE ADMIN CRITERIA psychosis/ voices Take 1 po every AM and 2 po QHS Sucralfate (Carafate) 1 GRAM TABLET 1 TAB PO TIDAC abdominal pain Triage Note: PT C/O RASH ON HIS PRIVATE AREA. STATES HE HAD A CREAM FOR IT BUT WHEN HE WENT TO [facility] HE WASN'T ABLE TO TAKE IT WITH HIM Triage Nurses Notes Reviewed? yes HPI: Patient presents with an itchy rash in his groin. Patient states he was here the other day and received a cream for however on that visit he was admitted to [facility]patient [facility] and they kept the cream. His was released yesterday and doesn't have any more cream. There is no radiation of the itch. There are no fevers or chills. Patient has no other complaints. Past History Travel History Traveled to [place] past 21 day No Medical History Any Pertinent Medical History? see below for history Neurological: NONE EENT: NONE Cardiovascular: hypertension Respiratory: pulmonary embolism Gastrointestinal: GERD Hepatic: NONE Renal: NONE Musculoskeletal: chronic back pain Psychiatric: anxiety, bipolar disease, depression, schizo affective disorder, substance abuse, Intermittent explosive disorder Endocrine: diabetes Blood Disorders: DVT, PE Cancer(s): NONE HUMAN RESOURCES GENERALIST/Reproductive: NONE Other Medical Hx: History of substance abuse. Mood disorder. Currently on Suboxone. Suicide attempts. Psychosis History of MRSA: Yes History of VRE: No History of CDIFF: No Tetanus Vaccine: 11/23/17 Surgical History Surgical History: non-contributory Psychosocial History Who do you live with Other (see notes) What is your primary language Ukrainian Tobacco Use: Current Daily Use Daily Tobacco Use Amount/Type: => 5 Cigarettes daily ETOH Use: denies use Illicit Drug Use: denies illicit drug use Family History Family History, If Any: FATHER FH: heart disease Relation not specified for: Psychiatric disorder Hx Contributory? No Review of Systems Review of Systems Constitutional: Reports: no symptoms. Respiratory: Reports: no symptoms. Cardiovascular: Reports: no symptoms. Genitourinary: Reports: see HPI. Neurological/Psychological: Reports: no symptoms. Immunologic/Allergic: Reports: no symptoms. Physical Exam Physical Exam General Appearance: well developed/nourished, alert, awake Eyes: Bilateral: PERRL, EOMI. Respiratory: normal breath sounds, chest non-tender, no respiratory distress, lungs clear Cardiovascular: regular rate/rhythm, normal peripheral pulses Skin: rash Skin Problem Location: [facility] Skin Problem Character: scales Progress Differential Diagnosis: TINEA Plan of Care: KETOCONAZOL Departure Departure Disposition: HOME OR SELF CARE Condition: Stable Clinical Impression Primary Impression: Tinea cruris Referrals: Joseph VIVEROS,Miles Andersen MD,[place] (PCP/Family) Additional Instructions: USE CREAM ASPRESCRIBED RETURN IF SYMPTOMS WORSEN OR FOR ANY CONCERNS Departure Forms: Customer Survey General Discharge Information Prescriptions: Current Visit Scripts Ketoconazole 1 DOUG TOP DAILY #15 GM apply to affected area(s)
[2018-01-22] MEDS ORDERED: KETOCONAZOLE15 GM TOP ×2 (15:16→15:17)
[2018-01-22 15:34] VITALS: BP 124/70
[2018-01-28] MEDS ORDERED: BENZTROPINE ME0.5 M1 PO (12:12)
[2018-01-28] MEDS ORDERED: PERPHENAZINE2 M1 PO (12:12)
[2018-01-29] MEDS ORDERED: ELIQUIS5 M1 PO (22:43)
[2018-01-29] MEDS ORDERED: FUROSEMIDE20 M1 PO (22:43)
[2018-01-29] MEDS ORDERED: CYMBALTA30 M1 PO (22:43)
[2018-01-29] MEDS ORDERED: GABAPENTIN400 M2 PO (22:43)
[2018-01-29] MEDS ORDERED: NYSTATIN15 G1 TOP (22:43)
[2018-01-29] MEDS ORDERED: METFORMIN HCL1000 M1 PO (22:43)
[2018-02-08] MEDS ORDERED: CLONIDINE HCL0.1 MG PO (05:43)
[2018-02-08] MEDS ORDERED: ZOFRAN ODT4 M1 SL (05:43)
[2018-02-08] MEDS ORDERED: SUBOXONE 8 MG-1 EACH SL (06:04)
== END 2018-01-22 15:35 ==
LOC: ERH 13:48
DX: B35.6 Tinea cruris (principal); S90.822A Blister (nonthermal), left foot, initial encounter; R60.9 Edema, unspecified

== ENCOUNTER 2018-01-22 22:05 | Emergency (ER) | payer OTHER ==
[~2018-01-22] VITALS: Ht 167.6 cm; Wt 113.4 kg
[~2018-01-22 22:05] MED LIST changes: +KETOCONAZOLE15 GM TOP
[2018-01-22 22:10] VITALS: BP 114/74
--- NOTE | 2018-01-22 22:15 | ED GENERAL ADULT ---
History of Present Illness General Chief Complaint: General Adult Stated Complaint: WANTS TO SEE DR. MAIN Source: patient Exam Limitations: no limitations Vital Signs & Intake/Output Vital Signs & Intake/Output Vital Signs Date Time Temp Pulse Resp B/P B/P Pulse O2 O2 Flow FiO2 Mean Ox Delivery Rate 01/22 2210 98.7 81 20 114/74 97 Room Air ED Intake and Output 01/23 0000 01/22 1200 Intake Total Output Total Balance Patient 250 lb Weight Weight Reported by Patient Measurement Method Allergies Coded Allergies: azithromycin (UNKNOWN 01/22/18) chlorpromazine (From THORAZINE) (UNKNOWN 01/22/18) haloperidol (From HALDOL) (UNKNOWN 01/22/18) trazodone (UNKNOWN 01/22/18) Reconcile Medications Albuterol Sulfate (Proair Hfa) 90 MCG HFA.AER.AD 2 PUF INH Q4-6 PRN PRN ASTHMA Apixaban (Eliquis) 5 MG TABLET 1 TAB PO BID blood thinner Buprenorphine HCl/Naloxone HCl (Suboxone 12 MG-3 MG Sl Film) 12 MG-3 MG FILM 1 STR SL TID opiate addiction (Reported) Duloxetine Hydrochloride (Cymbalta) 30 MG CAPSULE.DR 1 CAP PO DAILY depression /pain Esomeprazole (Nexium) 40 MG CAPSULE.DR 1 CAP PO DAILY GASTRITIS Furosemide 20 MG TABLET 1 MG PO 0730,1630 water retension/blood pressure Gabapentin 400 MG CAPSULE 1 CAP PO TID NEUROPATHY Ketoconazole 2 % CREAM..G. 1 DOUG TOP DAILY TINEA apply to affected area(s) Loratadine 10 MG TABLET 1 TAB PO DAILY allergies Metformin HCl 1,000 MG TABLET 1 TAB PO BID diabetes Multivitamin (One Daily Multivitamin) 1 EACH TABLET 1 TAB PO DAILY vitamin supplement Nicotine (Nicotine Patch) 21 MG/24 HOUR PATCH.TD24 1 PAT TOP DAILY smoking cessation Nystatin 100,000 UNIT/GRAM CREAM..G. 1 DOUG TOP BID PRN RASH Ondansetron (Zofran Odt) 4 MG TAB.RAPDIS 1 TAB SL TID PRN nausea Risperidone (Risperdal) 1 MG TABLET 1 TAB PO SEE ADMIN CRITERIA psychosis/ voices Take 1 po every AM and 2 po QHS Sucralfate (Carafate) 1 GRAM TABLET 1 TAB PO TIDAC abdominal pain Triage Note: TRIAGE: PT TO ER REQUESTING TO SEE DR MAIN FOR FOOT PAIN. STATES HAS HAD THE FOOT PAIN X 1.5 MONTHS AND HAS BEEN HERE x 3 SINCE SATURDAY, WAS INPATIENT IN [facility] AND THEY DIDN'T CHANGE HIS MEDICATION. THINKS THE RISPERIDOL IS CAUSING HIS FOOT PROBLEMS. ALSO STATES HE HAS FLUID AND HE WAS UNABLE TO FILL THE REFILL PRESCRIPTION FOR LASIX. Triage Nurses Notes Reviewed? yes Onset: Gradual Duration: day(s): Timing: recent history Injury Environment: street Severity: mild Modifying Factors: Improves With: rest. Associated Symptoms: calcaneal pain bilaterally with mild lower extremity edema HPI: 37 YO gentleman presents with several weeks of bilateral heel pain and lower extremity edema. He notes, "I have a script for lasix at [facility] but they are closed today." He notes also that he has thick skin and blisters on his heels. "My boots aren' t so great... I had to put cardboard in my boots to make them more comfortable. " He notes no redness,fever, weakness, chest pain, joint swelling. He notes his lower extremity diffuse edema is about stable. He is otherwise well. Past History Travel History Traveled to [place] past 21 day No Medical History Any Pertinent Medical History? 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 Mood disorder. Currently on Suboxone. Suicide attempts. Psychosis History of MRSA: Yes History of VRE: No History of CDIFF: No Tetanus Vaccine: 11/23/17 Surgical History Surgical History: non-contributory Psychosocial History Who do you live with Other (see notes) What is your primary language Barbadian Tobacco Use: Current Daily Use Daily Tobacco Use Amount/Type: => 5 Cigarettes daily ETOH Use: denies use Illicit Drug Use: PT STATES NOTHING SINCE SATURDAY BUT WONT ELABORATE ON WHAT HE HAS USED Family History Family History, If Any: FATHER FH: heart disease Relation not specified for: Psychiatric disorder Hx Contributory? No Review of Systems Review of Systems Constitutional: Reports: no symptoms. EENTM: Reports: no symptoms. Respiratory: Reports: no symptoms. Cardiovascular: Reports: no symptoms. GI: Reports: no symptoms. Genitourinary: Reports: no symptoms. Musculoskeletal: Reports: no symptoms. Skin: Reports: no symptoms. Neurological/Psychological: Reports: no symptoms. Hematologic/Endocrine: Reports: no symptoms. Immunologic/Allergic: Reports: no symptoms. All Other Systems: Reviewed and Negative Physical Exam Physical Exam General Appearance: well developed/nourished, no apparent distress Head: atraumatic, normal appearance Eyes: Bilateral: normal appearance. Ears, Nose, Throat: normal pharynx, normal ENT inspection Neck: normal inspection, supple, full range of motion Respiratory: normal breath sounds, chest non-tender, no respiratory distress, quiet respiration, lungs clear Cardiovascular: regular rate/rhythm Gastrointestinal: normal bowel sounds, soft, non-tender, no organomegaly Back: normal inspection, normal range of motion Extremities: normal capillary refill, normal range of motion, no edema, thickened skin with mild blisters on calcaneus of both feet, thickened scar on right foot. no sign of infection. Neurologic/Psych: no motor/sensory deficits, awake, alert, oriented x 3 Skin: intact, normal color, warm/dry Core Measures ACS in differential dx? No CVA/TIA Diagnosis: No Sepsis Present: No Sepsis Focused Exam Completed? No Progress Differential Diagnoses I considered the following diagnoses in my evaluation of the patient: edema bone spurs plantar fasciitis vs other. Plan of Care: Current Medications Sig/Rodrigo Start time Last Medication Dose Stop Time Status Admin Furosemide 20 MG ONCE ONE 01/22 2245 UNVr (Lasix) 01/22 2246 Initial ED EKG: none Departure Departure Disposition: HOME OR SELF CARE Condition: Stable Clinical Impression Primary Impression: Edema Secondary Impressions: Friction blisters of sole of left foot, Friction blisters of sole of right foot Referrals: Ganesh MONTOYA,Ortiz (PCP/Family) Departure Forms: Customer Survey General Discharge Information Comments pt as rx for lasix at [facility].... he asks for one dose in the ED... I also provided him gauze padding for his boots.... close follow up advised. Critical Care Note Critical Care Note Critical Care Time: non-applicable
== END 2018-01-22 23:11 ==
LOC: ERH 22:05
DX: S90.822A Blister (nonthermal), left foot, initial encounter (principal); R60.9 Edema, unspecified

== ENCOUNTER 2018-01-26 22:36 | Emergency (ER) | payer OTHER ==
[2018-01-28] MEDS ORDERED: PERPHENAZINE2 M1 PO (12:12)
[2018-01-28] MEDS ORDERED: BENZTROPINE ME0.5 M1 PO (12:12)
[2018-01-29] MEDS ORDERED: CYMBALTA30 M1 PO (22:43)
[2018-01-29] MEDS ORDERED: ELIQUIS5 M1 PO (22:43)
[2018-01-29] MEDS ORDERED: FUROSEMIDE20 M1 PO (22:43)
[2018-01-29] MEDS ORDERED: NYSTATIN15 G1 TOP (22:43)
[2018-01-29] MEDS ORDERED: GABAPENTIN400 M2 PO (22:43)
[2018-01-29] MEDS ORDERED: METFORMIN HCL1000 M1 PO (22:43)
== END 2018-01-26 22:47 | disposition admitted as inpatient to this hospital (09) ==
LOC: ERH 22:36
DX: R21 Rash and other nonspecific skin eruption (principal)
CPT/HCPCS: J1200; J3490

== ENCOUNTER 2018-01-31 03:56 | Emergency (ER) | payer OTHER ==
[~2018-01-31 03:56] MED LIST changes: +BENZTROPINE ME0.5 M1 PO; +PERPHENAZINE2 M1 PO
--- NOTE | 2018-01-31 04:21 | ED PSYCHIATRIC COMPLAINT ---
History of Present Illness General Chief Complaint: Psychiatric Related Complaint Stated Complaint: BIBA +SI Source: patient, old records, EMS, police Exam Limitations: no limitations Vital Signs & Intake/Output Vital Signs & Intake/Output Vital Signs Date Time Temp Pulse Resp B/P B/P Pulse O2 O2 Flow FiO2 Mean Ox Delivery Rate 02/01 0742 98.3 73 18 123/66 96 Room Air 02/01 0521 68 20 132/76 96 01/31 2148 98.4 76 18 132/70 99 01/31 1737 98.5 66 17 139/70 98 Room Air 01/31 1444 98.2 82 16 141/86 99 Room Air 01/31 1111 98.1 64 20 147/83 97 Room Air ED Intake and Output 02/01 0000 01/31 1200 Intake Total 0 Output Total Balance 0 Intake, Oral 0 . Allergies Coded Allergies: azithromycin (UNKNOWN 01/27/18) chlorpromazine (From THORAZINE) (UNKNOWN 01/27/18) haloperidol (From HALDOL) (UNKNOWN 01/27/18) trazodone (UNKNOWN 01/27/18) Triage Note: PT BIBA EMS FOR SI. EMS STATED THAT PT WOULD NOT VERBALIZE IF HE HAD A PLAN . PER EMS PT WAS F[facility]. PT ADMITTED TO NOT HAVING HIS MEDS FOR 23 HOURS. PT C/O SI AT THIS TIME. PT STATES "I DON'T THINK THE MEDICATIONS ARE HELPING." PT ADMITS TO AUDITORY HALLUCINATIONS. PT DENIES ETOH/DRUG USE. PT DENIES HI. PT DENIES ANY OTHER COMPLAINTS. WHEN ASKED IF PT HAS A PLAN, PT STATES "I'M NOT GOING TO SAY." Triage Nurses Notes Reviewed? yes Onset: Just prior to arrival Duration: day(s):, constant, continues in ED, getting worse Timing: recent history Severity: moderate, severe Associated Symptoms: impaired concentration, insomnia, suicidal ideation HPI: The patient has had issues with getting obtaining his medications from the [place] police department. He reports not feeling safe want to cut himself to commit suicide. He denies fever chills nausea vomiting diarrhea abdominal pain chest pain shortness of breath headache dysuria rash bleeding homicidal ideation hallucination. (Erica MONTOYA,Ed) Reconcile Medications Albuterol Sulfate (Proair Hfa) 90 MCG HFA.AER.AD 2 PUF INH Q4-6 PRN PRN ASTHMA Apixaban (Eliquis) 5 MG TABLET 1 TAB PO BID dvt Apixaban (Eliquis) 5 MG TABLET 1 TAB PO BID blood thinner Benztropine Mesylate 0.5 MG TABLET 1 TAB PO BID schizoaffective disorder Buprenorphine HCl/Naloxone HCl (Suboxone 12 MG-3 MG Sl Film) 12 MG-3 MG FILM 1 FILM SL TID opiate addiction Duloxetine Hydrochloride (Cymbalta) 30 MG CAPSULE.DR 1 CAP PO DAILY depression Duloxetine Hydrochloride (Cymbalta) 30 MG CAPSULE.DR 1 CAP PO DAILY depression /pain Esomeprazole (Nexium) 40 MG CAPSULE.DR 1 CAP PO DAILY GASTRITIS Furosemide 20 MG TABLET 1 TAB PO BID edema Furosemide 20 MG TABLET 1 MG PO 0730,1630 water retension/blood pressure Gabapentin 400 MG CAPSULE 1 CAP PO TID neuropathy Gabapentin 400 MG CAPSULE 1 CAP PO TID NEUROPATHY Ketoconazole 2 % CREAM..G. 1 DOUG TOP DAILY TINEA apply to affected area(s) Loratadine 10 MG TABLET 1 TAB PO DAILY allergies Metformin HCl 1,000 MG TABLET 1 TAB PO BID dm Metformin HCl 1,000 MG TABLET 1 TAB PO BID diabetes Multivitamin (One Daily Multivitamin) 1 EACH TABLET 1 TAB PO DAILY vitamin supplement Nicotine (Nicotine Patch) 21 MG/24 HOUR PATCH.TD24 1 PAT TOP DAILY smoking cessation Nystatin 100,000 UNIT/GRAM CREAM..G. 1 DOUG TOP BID fungal rash apply to affected area(s) Nystatin 100,000 UNIT/GRAM CREAM..G. 1 DOUG TOP BID PRN RASH Ondansetron (Zofran Odt) 4 MG TAB.RAPDIS 1 TAB SL TID PRN nausea Perphenazine 2 MG TABLET 1 TAB PO BID schizoaffective disorder Risperidone (Risperdal) 1 MG TABLET 1 TAB PO SEE ADMIN CRITERIA psychosis/ voices Take 1 po every AM and 2 po QHS Sucralfate (Carafate) 1 GRAM TABLET 1 TAB PO TIDAC abdominal pain (Navya MONTOYA,Ishan Orozco) Past History Travel History Traveled to [place] past 21 day No Medical History Any Pertinent Medical History? 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 Mood disorder. Currently on Suboxone. Suicide attempts. Psychosis History of MRSA: Yes History of VRE: No History of CDIFF: No Isolation History: Standard Tetanus Vaccine: 11/23/17 Surgical History Surgical History: non-contributory Psychosocial History Who do you live with Other (see notes) What is your primary language Danish Tobacco Use: Current Daily Use Daily Tobacco Use Amount/Type: => 5 Cigarettes daily Family History Family History, If Any: FATHER FH: heart disease Relation not specified for: Psychiatric disorder Hx Contributory? No (Ed Maldonado MD) Review of Systems Review of Systems Constitutional: Reports: no symptoms. EENTM: Reports: no symptoms. Respiratory: Reports: no symptoms. Cardiovascular: Reports: no symptoms. GI: Reports: no symptoms. Genitourinary: Reports: no symptoms. Musculoskeletal: Reports: no symptoms. Skin: Reports: no symptoms. Neurological/Psychological: Reports: see HPI, cognitive dysfunction, depressed, emotional problems. Hematologic/Endocrine: Reports: no symptoms. Immunologic/Allergic: Reports: no symptoms. All Other Systems: Reviewed and Negative (Ed Maldonado MD) Physical Exam Physical Exam General Appearance: well developed/nourished, alert, awake, anxious, mild distress, obese Head: atraumatic, normal appearance Eyes: Bilateral: normal appearance, PERRL, EOMI. 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 yes 1 Depression/Hopelessness? yes 2 Previous Attempts/Psych Care yes 1 Rational Thinking Loss? yes 2 Single//? yes 1 Social Support? has no support 1 Stated Future Intent? yes 2 Total 10 SAD PERSONS Done? yes (Erica MONTOYA,Ed) Progress Differential Diagnosis: drug intoxication, drug overdose, drug withdrawal, electrolyte abnormality, hypoglycemia Plan of Care: Current Medications Sig/Rodrigo Start time Last Medication Dose Stop Time Status Admin Perphenazine 4 MG BID 01/31 2100 UNVr 02/01 (Trilafon 2 MG 0822 Tablet) Apixaban 5 MG BID 01/31 0900 UNVr 02/01 (Eliquis) 0822 Benztropine Mesylate 0.5 MG BID 01/31 09 UNVr 02/01 (Cogentin 0.5 MG Tab) 0822 Buprenorphine/ 1 TAB TID 01/31 09 UNVr 02/01 Naloxone 0822 (Suboxone) Buprenorphine/ 2 TAB TID 01/31 09 UNVr 02/01 Naloxone 0822 (Suboxone) Duloxetine HCl 30 MG DAILY 01/31 09 UNVr 02/01 (Cymbalta) 0822 Furosemide 20 MG BID 01/31 09 UNVr 02/01 (Lasix) 0822 Gabapentin 400 MG TID 01/31 09 UNVr 02/01 (Neurontin) 0822 Metformin HCl 1,000 MG BID 01/31 0900 UNVr 02/01 (Glucophage) 0822 Nicotine 21 MG DAILY 01/31 0900 UNVr 02/01 (Nicoderm) 0822 Omeprazole 40 MG DAILY AC 01/31 07 UNVr 02/01 (Prilosec) 0822 Albuterol Sulfate 2 PUF Q4-6 PRN PRN 01/31 0430 UNVr (Ventolin) Laboratory Tests 01/31/18 1212: Urine Opiates Screen < 100, Methadone Screen < 40, Barbiturate Screen < 60, Ur Phencyclidine Scrn < 6.00, Amphetamines Screen < 100, U Benzodiazepines Scrn < 85, Urine Cocaine Screen > 1000 H, Urine Cannabis Screen < 5.00 Hand-Off Endorsed To: Navya MONTOYA,Ishan Orozco Endorsed Time: 0700 Pending: consult, labs (utox) (Erica MONTOYA,Ed) Comments: 01/31/2018 7:54:26 AM patient signed out to me by Dr. Maldonado at shift international exchange coordinator. 01/31/2018 9:06:48 AM patient found sleeping but aroused easily, he offers no complaints currently. 01/31/2018 11:15:36 AM patient's case discussed with crisis. Given the fact he has missed his outpatient appointment and has been in the emergency department a number of times I feel the patient requires evaluation by the psychiatrist. He has yet to provide a urine specimen for drug detox and I have advised his nurse of this plan. 01/31/2018 3:21:54 PM per metal drawer, You will be monitored overnight. I have increased his Trilafon dose at their request. 01/31/2018 8:02:00 PM patient signed out to Dr. Valero at shift international exchange coordinator. He will be reevaluated tomorrow morning. 02/01/2018 8:22:39 AM patient signed out to me by Dr. Valero at shift international exchange coordinator. 02/01/2018 10:59:01 AM You has been evaluated by the crisis condition and felt to be stable for outpatient management. They are recommending an increased dose of Trilafon. (Navya MONTOYA,Ishan Orozco) Departure Departure Time of Disposition: 455 Condition: Stable Referrals: Ortiz Andersen MD (PCP/Family) Departure Forms: General Discharge Information (Ed Maldonado MD) Departure Disposition: HOME OR SELF CARE Clinical Impression Primary Impression: Schizoaffective disorder, bipolar type Secondary Impressions: Cocaine abuse, Suicidal ideation Additional Instructions: Follow-up as outlined by the metal drawer. Notify your primary care doctor of this emergency department visit and treatment plan. Return if any concerns or sudden worsening. Please note that there might be incidental findings in your evaluation that are unrelated to the current emergency department visit. Please notify your primary care doctor about this emergency department visit in order to obtain and review all of the testing performed so that these incidental findings can be monitored as needed. If you had an x-ray performed, please understand that some fractures or other findings may not be seen on the initial set of x-rays. If your symptoms persist you might need a repeat set of x-rays to check for such a fracture. If you had a laceration evaluated, please understand that foreign bodies such as glass or wood may not be visible to the naked eye or on plain x-rays. If the wound becomes red, swollen, increasingly more painful or if there is any drainage from the wound, please have it reevaluated by a physician for the possibility of a retained foreign body. If you're unable to follow up as outlined in the discharge instructions please return to the emergency department. Thank you for choosing the [facility] Emergency Department for your care. It was a pleasure to serve you today. Ishan Mendosa M.D. [facility] Prescriptions: Current Visit Scripts Perphenazine 1 TAB PO BID #30 TAB (Navya MONTOYA,Ishan Orozco) Departure Comments 02/01/18 12:50 AM The patient is in no acute distress. He was signed out to me by Dr. Mendosa at 7 PM. He is pending disposition by crisis. He was evaluated several times during the night and not in any acute distress. He will be signed out to Dr. Mendosa at 7 AM. (Ishan Valero DO)
[2018-01-31 05:25] LABS: ABSOLUTE BASOPHIL COUNT 0 /CUMM (0.0-0.2); ABSOLUTE EOSINOPHIL COUNT 0.3 /CUMM (0.0-0.7); ABSOLUTE GRANULOCYTE CT 7.1 /CUMM (1.4-6.5); ABSOLUTE LYMPH COUNT 2.9 /CUMM (1.2-3.4); ABSOLUTE MONOCYTE COUNT 1.8 /CUMM (0.10-0.60); BASOPHIL % 0.4 % (0.0-2.0); EOSINOPHIL % 2.8 % (0-5); GRANULOCYTE % 58.6 % (42.2-75.2); HEMATOCRIT 35.7 % (42-52); MEAN CORPUSCULAR HGB 30.1 PG (27.0-31.0); MEAN CORPUSCULAR HGB CONC 34.3 G/DL (33.0-37.0); MEAN CORPUSCULAR VOLUME 87.9 FL (80.0-94.0); MEAN PLATELET VOLUME 8.9 FL (7.4-10.4); PLATELET COUNT 253 /CUMM (130-400); RBC DISTRIBUTION WIDTH 12.7 % (11.5-14.5); RED BLOOD CELL CT 4.06 /CUMM (4.70-6.10); WHITE BLOOD CELL COUNT 12.2 /CUMM (4.8-10.8)
--- NOTE | 2018-01-31 16:22 | ED PSYCH CRISIS CONSULTATION ---
See Addendum Crisis Consult Basic Assessment Date of Consult: 01/31/18 Responsible Person/Accompanied By: self Insurance Authorization: Insurance #1: Insurance name: JOSEPH HIGGINBOTHAM Phone number: Policy number: [id number] Group number: Authorization number: ED Provider: Patient's ED Provider: Ishan Mendosa MD Primary Care Physician: Patient's PCP: Ortiz Andersen MD PCP's Current Psychiatrist: none Chief Complaint: Psychiatric Related Complaint Patient's Quote: I'm depressed Present Illness: Pt is a 37 yo male presenting to [facility] ED last evening with complaint of hearing voices and SI. This patients 7th presentation to [facility] ED since January 19 with similiar complaints. Pt has a hx of schizoaffective d/o and cocaine abuse. Pt has chronically had difficulty maintaining compliance with community based treatment. Pt is currently homeless in [place] and has limited supports outside of an aunt in [place]. Pt has recently been inpatient at [facility] in November and January 2018. Pt reports continued depression with suicidal thoughts. Pt reports not being sure he would act on these thoughts. Pt reports voices have been more consistent since he stopped treatment with Dr Myrick. He reports he was then prescribed ambian for sleep and since then has had poor sleep which he states makes his mind "not right". Earlier this week pt was seen at [facility] ED and resipdal was d/c and pt started on Trilafon 2 mg BID. Unclear if pt has been taking meds. he initially stated he was taking meds but they weren't working but later stated he couldn't fill the prescriptions at pharmacy. Pt follow up plan was to see Dr Subramanian at [facility] 01/30 at 3:30p. Pt did not show for appointment.Consult with Dr العلي and Aziza Cardona developed recommendation to increase Trilafon to 4 mg BID to assist in decreasing voices. Pt presents as depressed, cooperative, lethargic and OX3. Case reviewed with Dr Jc. Plan to h/o in ED to further assess if Trilafon increase is effective in clearing symptoms. Pt in agreement with plan. Patient's Address: [place] [address] Other Phone Number: Who Do You Live With? Other (see notes) (homeless) Family/Informants Interviewed: contacted Dr Subramanian office - pt was no call/no show for yesterday's appointment Allergies - Coded Allergies: azithromycin (UNKNOWN 01/27/18) chlorpromazine (From THORAZINE) (UNKNOWN 01/27/18) haloperidol (From HALDOL) (UNKNOWN 01/27/18) trazodone (UNKNOWN 01/27/18) Current Medications - Scheduled Medications Apixaban (Eliquis) 5 MG TABLET 1 TAB PO BID dvt #60 TAB Prescribed by Ed Maldonado MD on 01/29/18 Apixaban (Eliquis) 5 MG TABLET 1 TAB PO BID blood thinner #28 TAB Prescribed by Jacky Jc MD on 01/21/18 Benztropine Mesylate 0.5 MG TABLET 1 TAB PO BID schizoaffective disorder #14 TAB Prescribed by Ed Maldonado MD on 01/28/18 Buprenorphine HCl/Naloxone HCl (Suboxone 12 MG-3 MG Sl Film) 12 MG-3 MG FILM 1 STR SL TID opiate addiction (Reported) Entered as Reported by Gretchen Mueller on 03/05/17 2120 Buprenorphine HCl/Naloxone HCl (Suboxone 12 MG-3 MG Sl Film) 12 MG-3 MG FILM 1 FILM SL TID opiate addiction #42 FILM Prescribed by Jacky Jc MD on 01/23/18 Duloxetine Hydrochloride (Cymbalta) 30 MG CAPSULE. 1 CAP PO DAILY depression #30 CAP Prescribed by Ed Maldonado MD on 01/29/18 Duloxetine Hydrochloride (Cymbalta) 30 MG CAPSULE. 1 CAP PO DAILY depression /pain #14 CAP Prescribed by Jacky Jc MD on 01/21/18 Esomeprazole (Nexium) 40 MG CAPSULE. 1 CAP PO DAILY GASTRITIS #14 CAP Prescribed by Jacky Jc MD on 01/21/18 Furosemide 20 MG TABLET 1 TAB PO BID edema #30 TAB Prescribed by Ed Maldonado MD on 01/29/18 Furosemide 20 MG TABLET 1 MG PO 0730,1630 water retension/blood pressure #28 TAB Prescribed by Jacky Jc MD on 01/21/18 Gabapentin 400 MG CAPSULE 1 CAP PO TID neuropathy #90 CAP Prescribed by Ed Maldonado MD on 01/29/18 Gabapentin 400 MG CAPSULE 1 CAP PO TID NEUROPATHY #42 CAP Prescribed by Jacky Jc MD on 01/21/18 Ketoconazole 2 % CREAM..G. 1 DOUG TOP DAILY TINEA #15 GM Prescribed by Mick Yun MD on 01/22/18 Loratadine 10 MG TABLET 1 TAB PO DAILY allergies #14 TAB Prescribed by Jacky Jc MD on 01/21/18 Metformin HCl 1,000 MG TABLET 1 TAB PO BID dm #60 TAB Prescribed by Ed Maldonado MD on 01/29/18 Metformin HCl 1,000 MG TABLET 1 TAB PO BID diabetes #28 TAB Prescribed by Jacky Jc MD on 01/21/18 Multivitamin (One Daily Multivitamin) 1 EACH TABLET 1 TAB PO DAILY vitamin supplement #14 TAB Prescribed by Jacky Jc MD on 01/21/18 Nicotine (Nicotine Patch) 21 MG/24 HOUR PATCH.TD24 1 PAT TOP DAILY smoking cessation #30 PAT Prescribed by Jacky Jc MD on 01/21/18 Nystatin 100,000 UNIT/GRAM CREAM..G. 1 DOUG TOP BID fungal rash #30 GM Prescribed by Ed Maldonado MD on 01/29/18 Perphenazine 2 MG TABLET 1 TAB PO BID schizoaffective disorder #14 TAB Prescribed by Ed Maldonado MD on 01/28/18 Risperidone (Risperdal) 1 MG TABLET 1 TAB PO SEE ADMIN CRITERIA psychosis/ voices #42 TAB Prescribed by Jacky Jc MD on 01/21/18 Sucralfate (Carafate) 1 GRAM TABLET 1 TAB PO TIDAC abdominal pain #42 TAB Prescribed by Jacky Jc MD on 01/21/18 Scheduled PRN Medications Albuterol Sulfate (Proair Hfa) 90 MCG HFA.AER.AD 2 PUF INH Q4-6 PRN PRN ASTHMA #1 INHAL Prescribed by Jacky Jc MD on 01/21/18 Nystatin 100,000 UNIT/GRAM CREAM..G. 1 DOUG TOP BID PRN RASH #1 TUBE Prescribed by Jacky Jc MD on 01/21/18 Ondansetron (Zofran Odt) 4 MG TAB.RAPDIS 1 TAB SL TID PRN nausea #10 TAB Prescribed by Jacky Jc MD on 01/21/18 Laboratory Results: Laboratory Tests 01/31/18 1212: Urine Opiates Screen < 100, Methadone Screen < 40, Barbiturate Screen < 60, Ur Phencyclidine Scrn < 6.00, Amphetamines Screen < 100, U Benzodiazepines Scrn < 85, Urine Cocaine Screen > 1000 H, Urine Cannabis Screen < 5.00 01/31/18 0517: Anion Gap 9, Estimated GFR > 60, BUN/Creatinine Ratio 20.0, Glucose 154 H, Calcium 8.8, Total Bilirubin 0.3, AST 22, ALT 39, Alkaline Phosphatase 59, Total Protein 6.2 L, Albumin 3.4 L, Globulin 2.8, Albumin/Globulin Ratio 1.2, CBC w Diff NO MAN DIFF REQ, RBC 4.06 L, MCV 87.9, MCH 30.1, MCHC 34.3, RDW 12.7, MPV 8.9, Gran % 58.6, Lymphocytes % 23.4, Monocytes % 14.8 H, Eosinophils % 2.8, Basophils % 0.4, Absolute Granulocytes 7.1 H, Absolute Lymphocytes 2.9, Absolute Monocytes 1.8 H, Absolute Eosinophils 0.3, Absolute Basophils 0, Serum Alcohol < 10.0 Past History Past Medical History Neurological: NONE EENT: NONE Cardiovascular: hypertension Respiratory: pulmonary embolism Gastrointestinal: GERD Hepatic: NONE Renal: NONE Musculoskeletal: chronic back pain Psychiatric: anxiety, bipolar disease, depression, schizo affective disorder, substance abuse, Intermittent explosive disorder Endocrine: diabetes Blood Disorders: DVT, PE Cancer(s): NONE MARKETING SERVICES REP/Reproductive: NONE Past Surgical History Surgical History: non-contributory Psychosocial History Strengths/Capabilities: Patient is interested in being actively involved in psychotropic medication management. Physical Limitations (Interventions): back pain/injury 2010 Psychiatric Treatment History Psych Treatment Psychiatric Treatment Yes Inpatient Treatment Yes Outpatient Treatment Yes Location of Treatment [facility]; [facility] Reason for Treatment schizoaffective d/o Dates of Treatment most recent [facility] admission 01/20/18 Response to Treatment pt is inconsistent following aftercare treatment recommendations Diagnosis by History: Schizoaffective disorder Bipolar disorder Substance Use/Abuse History Drug Use/Abuse Substances Used/Abused Yes Substance Used/Abused Cocaine Last Used this week How much used/taken unknown How often several times per week For how long chronic Route of use inhalation Substance Abuse Treatment Substance Abuse Treatment Past Substance Abuse [place] Yes Inpatient Treatment Yes Outpatient Treatment Yes Location of Treatment [facility] Reason for Treatment cocaine Dates of Treatment unknown Response to Treatment poor Comments: pt urine screen positive for cocaine Current Mental Status Mental Status Orientation: Person, Place, Situation Affect: Depressed Speech: WNL Neuro-vegetative: Sleep Disturbance Appearance Appearance- Dress/Hygiene: hospital scrubs; disheveled; poorly groomed; lethargic Behaviors Thought Process: Irrational Thought Content: Auditory Hallucinations Memory: Impaired Insight: Poor SI/HI Risk Assessment Past Suicidal Ideation/Attempts Yes Current Suicidal Ideation/Att Yes Past Homicidal Ideation/Att: No Current Homicidal Ideation/Attempts No Degree of Intent: States Intent Danger To: Self Gravely Disabled: Lack of Insight, Poor Impulse Control, Poor Judgment Risk Factors: chronic/serious med cond., high anxiety/distress, history of Violence, history of suicide atmpts, SA/MH hospitalized, substance abuse, poor impulse control, lives alone, male, limited support Lethality Ratin PTSD Checklist PTSD Done? patient declined ED Management Sitter: Yes Restraints: No DSM5/PS Stressors/Medical Prob Diagnosis' (DSM 5, Stressors, Medical): Schizoaffective D/O depressed F25.1 Cocaine Use D/O F 14.20 homeless leg pain Current GAF: 30 Comments: pt continues to present to [facility] ED with complaint meds aren't working. Unclear if pt is consistently taking meds or allowing adequate time for meds to be effective. Pt also continues to use cocaine. Departure Disposition Psych Medical Clearance Date: 01/31/18 Medically Cleared at: 1500 Time Started: 1500 Time Ended: 1545 Psychiatrist Consulted: Jacky Jc MD Date Disposition Established: 01/31/18 Time Disposition Established: 1544 Plan for Disposition - Modality: h/o for re-eval Facility: [facility] Rationale for Disposition: increase trilfon to 4mg BID. re-assess pt for decrease SI/AH Referrals Ganesh MONTOYA,Ortiz (PCP/Family)
[2018-02-01 07:42] VITALS: BP 123/66
[2018-02-01] MEDS ORDERED: PERPHENAZINE4 M1 PO (11:01)
[2018-02-01] MEDS ORDERED: GLUCOPHAGE1000 M1 PO (11:52)
[2018-02-01] MEDS ORDERED: BENZTROPINE MESY1 M1 PO (11:52)
[2018-02-01] MEDS ORDERED: ELIQUIS5 M1 PO (11:52)
[2018-02-02] MEDS ORDERED: DOXYCYCLINE HY100 M2 PO (18:26)
[2018-02-08] MEDS ORDERED: ZOFRAN ODT4 M1 SL (05:43)
[2018-02-08] MEDS ORDERED: CLONIDINE HCL0.1 MG PO (05:43)
[2018-02-08] MEDS ORDERED: SUBOXONE 8 MG-1 EACH SL (06:04)
== END 2018-02-01 11:50 ==
LOC: ERH 03:56
PROVIDERS: Emergency Medicine
DX: F25.9 Schizoaffective disorder, unspecified (principal); F31.9 Bipolar disorder, unspecified; F14.10 Cocaine abuse, uncomplicated; R45.851 Suicidal ideations
CPT/HCPCS: 80307; G0463; G0480; J2405

== ENCOUNTER 2018-02-02 02:33 | Emergency (ER) | payer OTHER ==
[~2018-02-02] VITALS: Ht 167.6 cm; Wt 113.4 kg
[~2018-02-02 02:33] MED LIST changes: +BENZTROPINE MESY1 M1 PO; +PERPHENAZINE4 M1 PO
--- NOTE | 2018-02-02 02:39 | ED PSYCHIATRIC COMPLAINT ---
History of Present Illness General Chief Complaint: Psychiatric Related Complaint Stated Complaint: "I WANT TO SEE THE PSYCHIATRIST" Source: patient Exam Limitations: poor historian Vital Signs & Intake/Output Vital Signs & Intake/Output Vital Signs Date Time Temp Pulse Resp B/P B/P Pulse O2 O2 Flow FiO2 Mean Ox Delivery Rate 02/02 1809 98.2 67 18 121/68 98 Room Air 02/02 1559 98.5 70 18 101/59 98 Room Air 02/02 1157 97.8 69 20 119/57 97 Room Air 02/02 0807 97.5 77 20 120/80 97 Room Air 02/02 0253 97.6 81 18 127/79 97 Room Air Room Air Allergies Coded Allergies: azithromycin (UNKNOWN 01/27/18) chlorpromazine (From THORAZINE) (UNKNOWN 01/27/18) haloperidol (From HALDOL) (UNKNOWN 01/27/18) trazodone (UNKNOWN 01/27/18) Reconcile Medications Albuterol Sulfate (Proair Hfa) 90 MCG HFA.AER.AD 2 PUF INH Q4-6 PRN PRN ASTHMA Apixaban (Eliquis) 5 MG TABLET 1 TAB PO BID DVT Benztropine Mesylate 1 MG TABLET 1 TAB PO BID SIDE EFFECTS Benztropine Mesylate 0.5 MG TABLET 1 TAB PO BID schizoaffective disorder Buprenorphine HCl/Naloxone HCl (Suboxone 12 MG-3 MG Sl Film) 12 MG-3 MG FILM 1 FILM SL TID opiate addiction Duloxetine Hydrochloride (Cymbalta) 30 MG CAPSULE. 1 CAP PO DAILY depression Esomeprazole (Nexium) 40 MG CAPSULE.DR 1 CAP PO DAILY GASTRITIS Furosemide 20 MG TABLET 1 TAB PO BID edema Gabapentin 400 MG CAPSULE 1 CAP PO TID neuropathy Ketoconazole 2 % CREAM..G. 1 DOUG TOP DAILY TINEA apply to affected area(s) Loratadine 10 MG TABLET 1 TAB PO DAILY allergies Metformin HCl (Glucophage) 1,000 MG TABLET 1 TAB PO BID DIABETES Multivitamin (One Daily Multivitamin) 1 EACH TABLET 1 TAB PO DAILY vitamin supplement Nicotine (Nicotine Patch) 21 MG/24 HOUR PATCH.TD24 1 PAT TOP DAILY smoking cessation Nystatin 100,000 UNIT/GRAM CREAM..G. 1 DOUG TOP BID fungal rash apply to affected area(s) Nystatin 100,000 UNIT/GRAM CREAM..G. 1 DOUG TOP BID PRN RASH Ondansetron (Zofran Odt) 4 MG TAB.RAPDIS 1 TAB SL TID PRN nausea Perphenazine 4 MG TABLET 1 TAB PO BID SCHIZOAFFECTIVE DISORDER Perphenazine 2 MG TABLET 1 TAB PO BID schizoaffective disorder Risperidone (Risperdal) 1 MG TABLET 1 TAB PO SEE ADMIN CRITERIA psychosis/ voices Take 1 po every AM and 2 po QHS Sucralfate (Carafate) 1 GRAM TABLET 1 TAB PO TIDAC abdominal pain Triage Nurses Notes Reviewed? yes Onset: Abrupt Duration: day(s): Timing: recent history HPI: 37-year-old man with past medical history significant for dey-uwnzxaf-exwbkrytm diabetes mellitus, bipolar disorder, and pulmonary embolism on Eliquis and many recent ED evaluations seen for evaluation of right hand pain and suicidal ideation. Patient has been seen in the [place] ED a total of 17 times in 2018 mostly for psychiatric related complaints including suicidal ideation. Over the month of January he was released from Inpatient Psychiatry after being noncompliant with his psychiatric medications but deemed not a danger to himself or others and was released to the community. Patient is chronically homeless and apparently had his possessions including his prescription medications taken by the [place] [employer] who will reportedly not return them as he does not have any valid forms of identification. Patient reports that he came to the ED tonight for "racing thoughts" and for "suicidal ideation". He reports that he has had multiple attempts to hurt himself by cutting in the past and admits that he thought about doing so tonight. He denies any homicidal ideation. His only other complaint is right hand pain that has been troubling him for the past week without any obvious source of injury; however he does admit that he feels like his right middle index finger was "bit by something". He otherwise denies any fever, chills, chest pain, shortness of breath, abdominal pain, nausea, vomiting , diarrhea, urinary complaints (Ishan Valero DO) Past History Travel History Traveled to [place] past 21 day No Medical History Any Pertinent Medical History? 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 Mood disorder. Currently on Suboxone. Suicide attempts. Psychosis History of MRSA: Yes History of VRE: No History of CDIFF: No Tetanus Vaccine: 11/23/17 Surgical History Surgical History: non-contributory Psychosocial History Who do you live with Other (see notes) What is your primary language Persian Family History Family History, If Any: FATHER FH: heart disease Relation not specified for: Psychiatric disorder Hx Contributory? No (Ishan Valero DO) Review of Systems Review of Systems Constitutional: Denies: fever. EENTM: Denies: visual changes. Respiratory: Denies: short of breath. Cardiovascular: Denies: chest pain. GI: Denies: abdominal pain. Genitourinary: Reports: no symptoms. Musculoskeletal: Reports: no symptoms. Skin: Reports: no symptoms. Neurological/Psychological: Reports: see HPI. Hematologic/Endocrine: Reports: no symptoms. Immunologic/Allergic: Reports: no symptoms. (Ishan Valero DO) Physical Exam Physical Exam General Appearance: alert, awake, anxious Head: atraumatic, normal appearance Eyes: Bilateral: normal appearance, PERRL, EOMI. Ears, Nose, Throat: normal pharynx, normal ENT inspection Neck: normal inspection, supple Respiratory: normal breath sounds, chest non-tender, no respiratory distress Cardiovascular: regular rate/rhythm Gastrointestinal: soft, non-tender Extremities: normal range of motion Neurological/Psychiatric: awake, alert Appearance/Memory/Insight: disheveled Behavoir/Eye Contact/Speech: cooperative Thoughts/Hallucinations: normal thought pattern Skin: intact SAD PERSONS SAD PERSONS Response Value Male Sex? yes 1 Previous Attempts/Psych Care yes 1 Single//? yes 1 Social Support? has no support 1 Total 4 SAD PERSONS Done? yes, patient not suicidal (Ishan Valero DO) Progress Differential Diagnosis: drug intoxication, drug overdose, drug withdrawal, BIPOLAR DISORDER Plan of Care: Orders Procedure Date/time Status Heart Healthy Diet 02/02 B Active Patient Safety Monitor 02/02 0700 Active EXTREMETIES CULTURE 02/02 0653 Active ED- NURSING MISC 02/02 0332 Active Continuous Observation Monitor 02/02 033 Complete URINE DRUGS OF ABUSE 02/03 332 Complete URINALYSIS 02/03 332 Complete ED CRISIS PSYCH CONSULT 02/02 033 Active Current Medications Sig/Rodrigo Start time Last Medication Dose Stop Time Status Admin Risperidone 1 MG DAILY 02/03 0900 AC (Risperidone) Risperidone 2 MG AT BEDTIME 02/02 2100 AC (risperiDONE) Buprenorphine/ 1.5 TAB Q8H 02/02 1830 AC 02/02 Naloxone 1730 (Suboxone) Gabapentin 400 MG Q8H 02/02 1830 AC 02/02 (Neurontin) 1730 Metformin HCl 1,000 MG 0800,1700 02/02 0911 AC 02/02 (Glucophage) 1722 Apixaban 5 MG BID 02/02 0900 UNVr 02/02 (Eliquis) 1028 Doxycycline Hyclate 100 MG BID 02/02 09 UNVr 02/02 (Vibramycin) 1028 Duloxetine HCl 30 MG DAILY 02/02 0900 UNVr 02/02 (Cymbalta) 1028 Furosemide 20 MG BID 02/02 0900 UNVr 02/02 (Lasix) 1028 Loratadine 10 MG DAILY 02/02 0900 UNVr 02/02 (Claritin) 1028 Multivitamins 1 TAB DAILY 02/02 0900 UNVr 02/02 Therapeutic 1028 (Theragran-M Vitamins Tabs) Nicotine 21 MG DAILY 02/02 09 UNVr 02/02 (Nicoderm) 1028 Omeprazole 40 MG DAILY AC 02/02 0700 UNVr (Prilosec) Albuterol Sulfate 2 PUF Q4-6 PRN PRN 02/02 0345 UNVr (Ventolin) Laboratory Tests 02/02/18 0745: Urine Opiates Screen < 100, Methadone Screen < 40, Barbiturate Screen 65, Ur Phencyclidine Scrn < 6.00, Amphetamines Screen < 100, U Benzodiazepines Scrn < 85, Urine Cocaine Screen > 1000 H, Urine Cannabis Screen < 5.00, Urine Color YEL, Urine Clarity CLEAR, Urine pH 8.0, Ur Specific [place] 1.010, Urine Protein NEG, Urine Ketones NEG, Urine Nitrite NEG, Urine Bilirubin NEG, Urine Urobilinogen 0.2, Ur Leukocyte Esterase NEG, Ur Microscopic EXAM NOT REQUIRED, Urine Hemoglobin NEG, Urine Glucose NEG Microbiology 02/02 703 EXTREMITIE: Culture & Sensitivity - RECD 02/02 703 EXTREMITIE: Gram Stain - RECD The patient will be evaluated by crisis in the a.m. He'll be signed out to Dr. 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 Disposition pending via crisis. 02/02/2018 6:21:42 PM You has been evaluated by the crisis condition and felt to be stable for outpatient management. (Ishan Mendosa MD) Departure Departure Condition: Stable Referrals: Ortiz Andersen MD (PCP/Family) Departure Forms: Customer Survey General Discharge Information Comments David complained of pain to his right third finger. He had an ulceration on the pulp of the right third finger. A procedure was done under sterile technique and local anesthesia with 3 mL of 1% lidocaine without epinephrine. Needle aspiration followed by scalp incision of the pulp abscess was performed. 3 mL of tyrone pus was returned. Saturation and a sterile dressing was applied. Culture was sent. (Ishan Valero DO) Departure Disposition: HOME OR SELF CARE Clinical Impression Primary Impression: Bipolar disorder Qualifiers: Active/Remission status: currently active Current bipolar episode type: mixed Current episode severity: mild Qualified Code: F31.61 - Bipolar disorder, current episode mixed, mild Secondary Impressions: Abscess of finger Qualifiers: Laterality: right Qualified Code: L02.511 - Cutaneous abscess of right hand Cocaine abuse Additional Instructions: Follow-up as outlined by the still tender. Take all of her prescription medications. Avoid drugs and alcohol. Return if any concerns or sudden worsening. Doxycycline as prescribed for your finger infection. Follow-up with your primary care physician or the [place] primary care practice to have your finger rechecked in the next 48-72 hours. Otherwise return if any concerns or sudden worsening. If you do not currently have a primary care physician then please contact the [place] primary care practice at the following phone number: . (Ishan Mendosa MD)
--- NOTE | 2018-02-02 04:23 | RADIOLOGY REPORT ---
EXAMINATION: XR FINGER, RIGHT CLINICAL INFORMATION: Hand pain for one week COMPARISON: None TECHNIQUE: 3 views of the right third digit. FINDINGS: Osseous alignment is anatomic. No acute fracture is seen. Included portions of the remainder of the hand appear unremarkable. IMPRESSION: No acute findings identified.
[2018-02-02 18:09] VITALS: BP 121/68
[2018-02-02] MEDS ORDERED: DOXYCYCLINE HY100 M2 PO (18:26)
--- NOTE | 2018-02-02 19:59 | ED PSYCH CRISIS CONSULTATION ---
Crisis Consult Basic Assessment Date of Consult: 02/02/18 Responsible Person/Accompanied By: by himself Insurance Authorization: Insurance #1: Insurance name: JOSEPH HIGGINBOTHAM Phone number: Policy number: [id number] Group number: Authorization number: ED Provider: Patient's ED Provider: Ishan Valero DO Primary Care Physician: Patient's PCP: Ortiz Andersen MD PCP's Current Psychiatrist: Unknown Chief Complaint: Lower Extremity Problems Patient's Quote: "I need my medications" Present Illness: Pt is a 37 year old male, he has been seen at the ER over the past several days for different physical ailments, today he was complaining of back and knee pain. Pt states his medications are in a bookbag at the [place] [employer]. I called the police and they stated the bag is there, and that they tried to reach out to pt for 8 hours on Saturday, and that they did not make contact with him to give him his belongings back to him. Dr. Mendosa here in the ER, gave pt a prescription for his meds for 5 days as pt is expected to follow up with [facility] or [place], pt is nomadic at times and could not verify where he would be going in terms of housing. Pt states "I want to get out of here, I just need my medications", the pt was informed that he can obtain his bookbag at the [place] police department tomorrow morning until 4pm. Pt encouraged to stop using drugs, and was given recovery resources. Pt states his PCP Dr. Andersen refills medications, I reviewed the discharge plan most recently from [facility], and encouraged pt to follow up with a community psychiatrist i.e. [facility]/ [place] as was indicated upon discharge on 01/21/18. I told him we could secure him new appointments if he wanted some help on Saturday. Pt tox screen positive for cocaine. He denies si/hi, he offers he does hear voices, and he was given his medications that he needed today. Patient's Address: [place] [address] Other Phone Number: Who Do You Live With? Other (see notes) Family/Informants Interviewed: unavailable Allergies - Coded Allergies: azithromycin (UNKNOWN 01/27/18) chlorpromazine (From THORAZINE) (UNKNOWN 01/27/18) haloperidol (From HALDOL) (UNKNOWN 01/27/18) trazodone (UNKNOWN 01/27/18) Current Medications - Scheduled Medications Apixaban (Eliquis) 5 MG TABLET 1 TAB PO BID DVT #10 TAB Prescribed by Ishan Mendosa MD on 02/01/18 Benztropine Mesylate 1 MG TABLET 1 TAB PO BID SIDE EFFECTS #10 TAB Prescribed by Ishan Mendosa MD on 02/01/18 Benztropine Mesylate 0.5 MG TABLET 1 TAB PO BID schizoaffective disorder #14 TAB Prescribed by Ed Maldonado MD on 01/28/18 Buprenorphine HCl/Naloxone HCl (Suboxone 12 MG-3 MG Sl Film) 12 MG-3 MG FILM 1 FILM SL TID opiate addiction #42 FILM Prescribed by Jacky Jc MD on 01/23/18 Doxycycline Hyclate 100 MG CAPSULE 1 CAP PO BID 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 1 DOUG TOP DAILY TINEA #15 GM Prescribed by Mick Yun MD on 01/22/18 Loratadine 10 MG TABLET 1 TAB PO DAILY allergies #14 TAB Prescribed by Jacky Jc MD on 01/21/18 Metformin HCl (Glucophage) 1,000 MG TABLET 1 TAB PO BID DIABETES #10 TAB Prescribed by Ishan Mendosa MD on 02/01/18 Multivitamin (One Daily Multivitamin) 1 EACH TABLET 1 TAB PO DAILY vitamin supplement #14 TAB Prescribed by Jacky Jc MD on 01/21/18 Nicotine (Nicotine Patch) 21 MG/24 HOUR PATCH.TD24 1 PAT TOP DAILY smoking cessation #30 PAT Prescribed by Jacky Jc MD on 01/21/18 Nystatin 100,000 UNIT/GRAM CREAM..G. 1 DOUG TOP BID fungal rash #30 GM Prescribed by Ed Maldonado MD on 01/29/18 Perphenazine 4 MG TABLET 1 TAB PO BID SCHIZOAFFECTIVE DISORDER #30 TAB Prescribed by Ishan Mendosa MD on 02/01/18 Perphenazine 2 MG TABLET 1 TAB PO BID schizoaffective disorder #14 TAB Prescribed by Ed Maldonado MD on 01/28/18 Risperidone (Risperdal) 1 MG TABLET 1 TAB PO SEE ADMIN CRITERIA psychosis/ voices #42 TAB Prescribed by Jacky Jc MD on 01/21/18 Sucralfate (Carafate) 1 GRAM TABLET 1 TAB PO TIDAC abdominal pain #42 TAB Prescribed by Jacky Jc MD on 01/21/18 Scheduled PRN Medications Albuterol Sulfate (Proair Hfa) 90 MCG HFA.AER.AD 2 PUF INH Q4-6 PRN PRN ASTHMA #1 INHAL Prescribed by Jacky Jc MD on 01/21/18 Nystatin 100,000 UNIT/GRAM CREAM..G. 1 DOUG TOP BID PRN RASH #1 TUBE Prescribed by Jacky Jc MD on 01/21/18 Ondansetron (Zofran Odt) 4 MG TAB.RAPDIS 1 TAB SL TID PRN nausea #10 TAB Prescribed by Jacky Jc MD on 01/21/18 Laboratory Results: Laboratory Tests 02/02/18 0745: Urine Opiates Screen < 100, Methadone Screen < 40, Barbiturate Screen 65, Ur Phencyclidine Scrn < 6.00, Amphetamines Screen < 100, U Benzodiazepines Scrn < 85, Urine Cocaine Screen > 1000 H, Urine Cannabis Screen < 5.00, Urine Color YEL, Urine Clarity CLEAR, Urine pH 8.0, Ur Specific [place] 1.010, Urine Protein NEG, Urine Ketones NEG, Urine Nitrite NEG, Urine Bilirubin NEG, Urine Urobilinogen 0.2, Ur Leukocyte Esterase NEG, Ur Microscopic EXAM NOT REQUIRED, Urine Hemoglobin NEG, Urine Glucose NEG Microbiology 02/02 703 EXTREMITIE: Culture & Sensitivity - RECD 02/02 703 EXTREMITIE: Gram Stain - RECD Past History Past Medical History Neurological: NONE EENT: NONE Cardiovascular: hypertension Respiratory: pulmonary embolism Gastrointestinal: GERD Hepatic: NONE Renal: NONE Musculoskeletal: chronic back pain Psychiatric: anxiety, bipolar disease, depression, schizo affective disorder, substance abuse, Intermittent explosive disorder Endocrine: diabetes Blood Disorders: DVT, PE Cancer(s): NONE 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 Physical Limitations (Interventions): back pain/injury 2010 Psychiatric Treatment History Psych Treatment Psychiatric Treatment Yes Inpatient Treatment Yes Outpatient Treatment No Location of Treatment CPS in January Reason for Treatment si Dates of Treatment january 21 Response to Treatment did not follow through Diagnosis by History: Schizoaffective disorder Bipolar disorder Substance Use/Abuse History Drug Use/Abuse Substances Used/Abused Yes Substance Used/Abused Cocaine First Use unknown Last Used today How much used/taken unknown How often unknown For how long unknown Route of use snort Substance Abuse Treatment Substance Abuse Treatment Past Substance Abuse [place] Yes Inpatient Treatment Yes Outpatient Treatment Yes (unknown) Location of Treatment [facility]/[place] Reason for Treatment cocaine/etoh Dates of Treatment unknown Comments: pt is a poor historian Current Mental Status Mental Status Orientation: Current situation Affect: WNL Speech: Slurred Neuro-vegetative: Helpless Appearance Appearance- Dress/Hygiene: unkempt Behaviors Thought Process: WNL Thought Content: Auditory Hallucinations Memory: Impaired Insight: Fair SI/HI Risk Assessment Past Suicidal Ideation/Attempts Yes Current Suicidal Ideation/Att No Past Homicidal Ideation/Att: No Current Homicidal Ideation/Attempts No Degree of Intent: None Gravely Disabled: Lack of Insight Risk Factors: chronic/serious med cond., substance abuse, isolate/no social support, male, limited support Lethality Ratin PTSD Checklist PTSD Done? pt unable to participate ED Management Sitter: Yes Restraints: No DSM5/PS Stressors/Medical Prob Diagnosis' (DSM 5, Stressors, Medical): Cocaine D/O Severe F14.20 Schizoaffective D/O depressed F25.9 housing, lack of follow through Current GAF: 30 Departure Disposition Psych Medical Clearance Date: 02/02/18 Medically Cleared at: 1630 Time Started: 1630 Time Ended: 173 Psychiatrist Consulted: [place] Date Disposition Established: 02/02/18 Time Disposition Established: 1729 Plan for Disposition - Modality: Outpatient Facility: Patient to Arrange Follow-up Appt Date: 02/03/18 Rationale for Disposition: Spoke with Dr. Gerardo. pt expected [facility]. Pt states he wants to go to [place] police to get his bag tomorrow that has his medications in it. Pt told call crisis if he needs help securing appointments. Pt denies si/hi Referrals Ganesh MONTOYA,Ortiz (PCP/Family)
== END 2018-02-02 19:13 ==
LOC: ERH 02:33
DX: F31.9 Bipolar disorder, unspecified (principal); L02.511 Cutaneous abscess of right hand; F14.10 Cocaine abuse, uncomplicated
CPT/HCPCS: 87184; 73140-RT; 80307; 81003; 87070; 87147; 96372; G0463; J0574; J1200; J3490